=== PATIENT | female | born 1955 | race Caucasian/White ===

== ENCOUNTER 2018-01-20 15:16 | Inpatient (IN) ==
--- NOTE | 2018-01-20 17:56 | Internal Med History&Physical ---
Date of Encounter: 01/20/18 Time of Encounter: 17:54 Internal Medicine - H&P: HPI Chief complaint: transfer Admitted From: Intrahospital Transfer Plans for Post Hospital Care: Home History of present illness: Ms. Mcfarland is a 62 year old female Patient transfer from [facility] due to femur fracture. Patient has history of hypertension, morbid obesity, smoking history and DJD patient was common down stairs and that she slipped and fell landing on her left side with presentation to the emergency room with left hip pain x-ray shows left hip femur fracture patient was transferred for surgical intervention. No numbness the leg is warm denies any chest pain no shortness of breath. Patient had a recent stress test done just 2 days ago showed EF 70% with some abnormality. Past Med Surg Social Fam HX - Past Medical History Medical history: arthritis, GERD, hypertension Additional medical history: IBS Psychiatric history: anxiety - Past Surgical History Surgical History: cholecystectomy, other Additional surgical history: breast reduction 1980s, tonsillectomy - Social History Smoking Status: Current every day smoker Smokeless Tobacco Status: No Alcohol use: rarely Drug use: none - Family History Father Living Status: Hx Family Cardiac Disorders: Yes ([place]) Hx Family Respiratory Disorders: Yes (COPD) Mother Living Status: Still Living Hx Family Cardiac Disorders: Yes (hypertension) Internal Medicine - H&P: Meds Butalbital/Aspirin/Caffeine [[id number]-Sailycfh Cap] 1 each PO QID [History] Furosemide [Lasix] 40 mg PO DAILY 08/18/15 [History] Magnesium Oxide [Magnesium] 400 mg PO DAILY 08/18/15 [History] Pantoprazole Sodium [Protonix] 40 mg PO DAILY 08/18/15 [History] Pnv with Ca,No.72/Iron,Carb/FA [ Plus Iron Tablet] 1 each PO DAILY 08/17 [History] Potassium Chloride 10 meq PO BIDWM 08/18/15 [History] Promethazine HCl 2.5 mg PO QID 08/18/15 [History] Propranolol HCl 80 mg PO DAILY 08/18/15 [History] Sodium Chloride [Sodium Chloride Tab] 1 gm PO DAILY 08/18/15 [History] Spironolactone [Aldactone] 50 mg PO DAILY 08/18/15 [History] Tizanidine HCl 4 mg PO Q8H 08/18/15 [History] Trazodone HCl 150 mg PO HS 08/18/15 [History] clonazePAM [Klonopin] 2 mg PO BID PRN 08/18/15 [History] Buspirone HCl [Buspar] 10 mg PO DAILY 01/26/17 [History] Diphenoxylate/Atropine [Lomotil 2.5 mg/0.025 mg] 1 each PO DAILY 01/26/17 [ History] 3 Allergy/AdvReac Type Severity Reaction Status Date / Time acetaminophen [From Vicodin] AdvReac Hives Verified 08/18/15 09:22 clindamycin AdvReac Hives Verified 01/26/17 12:27 hydrocodone [From Vicodin] AdvReac Hives Verified 08/18/15 09:22 Iodinated Contrast- Oral and AdvReac Hives Verified 08/18/15 09:22 IV Dye prednisone AdvReac Hives Verified 08/18/15 09:22 All Systems PM: A 10-system review of systems was performed and is negative for pertinent findings except as documented above in the HPI. - Head Head exam: Present: atraumatic, normocephalic - Neck Neck exam general surgery: Present: supple, trachea midline. Absent: lymphadenopathy - Respiratory Respiratory exam: Present: CTAB. Absent: accessory muscle use, rales, rhonchi, wheezes - Cardiovascular Cardiovascular exam: Present: RRR, +S1, +S2. Absent: diastolic murmur, gallop, rubs, systolic murmur - GI/Abdominal GI/Abdominal exam: Present: normal bowel sounds, soft, no peritoneal signs. Absent: distended, tenderness - Extremities Exam Extremities exam: Present: tenderness - Assessment and plan (1) Left displaced femoral neck fracture Current Visit: Yes Status: Acute Assessment and plan: Left femoral neck fracture due to accidental fall Keep patient nothing by mouth orthopedic surgery has been contacted (2) HTN (hypertension) Current Visit: Yes Status: Chronic Assessment and plan: Chronic and well controlled Qualifiers: Hypertension type: essential hypertension Qualified Code(s): I10 - Essential (primary) hypertension (3) Morbid (severe) obesity due to excess calories Current Visit: Yes Status: Chronic Assessment and plan: Chronic (4) GERD (gastroesophageal reflux disease) Current Visit: Yes Status: Chronic Qualifiers: Esophagitis presence: without esophagitis Qualified Code(s): K21.9 - Gastro -esophageal reflux disease without esophagitis - Time Spent With Patient Total time spent is greater than 50% in coordination of care (as documented) at patient's floor/unit and/or counseling patient:
[2018-01-20] MEDS ORDERED: Naloxone 0.4 MG/ML INJ IVP PRN (18:00)
[2018-01-20] MEDS ORDERED: Acetaminophen 325 MG TABLET PO PRN (18:00)
[2018-01-20] MEDS ORDERED: *HR* HYDROcodone/Acet 10/325 mg TABLET PO PRN (18:06)
[2018-01-20] MEDS ORDERED: clonazePAM 1 MG TABLET PO PRN (18:49)
[2018-01-20] MEDS: 0.9 % Sodium Chloride 1,000 ML IVC SCH (18:55)
[2018-01-20] MEDS: clonazePAM 1 MG TABLET PO PRN (20:37)
[2018-01-20] MEDS: OXYCODONE Oral CONC 10 MG/0.5 ML ORAL.SYG SL PRN (20:37)
[2018-01-20 20:49] LABS: Basophils # 0.1 K/mcL (0.0-0.2); Basophils % 0.8 %; Eosinophils # 0.3 K/mcL (0.0-0.6); Eosinophils % 2.6 %; Hemoglobin 12.5 g/dL (11.5-15.4); Immature Granulocytes % 0.2 % (0-4); Lymphocytes # 3.7 K/mcL (0.6-4.6); Lymphocytes % 36.9 %; Mean Corpuscular HGB Conc 32.1 g/dL (31.6-35.5); Mean Corpuscular Hemoglobin 29.4 pg (28.0-33.3); Mean Corpuscular Volume 91.8 fL (83.0-100.0); Mean Platelet Volume 11.6 fL (9.4-12.4); Monocytes # 1.1 K/mcL (0.0-1.3); Neutrophils # 4.8 K/mcL (1.6-8.9); Platelet Count 187 K/mcL (140-400); Red Blood Count 4.25 M/mcL (3.82-4.97); Segmented Neutrophils % 48.5 %
[2018-01-20 21:10] LABS: Alanine Aminotransferase 14 Units/L (7-52); Albumin 3.9 g/dL (3.5-5.7); Alkaline Phosphatase 80 Units/L (34-104); Aspartate Amino Transferase 21 Units/L (13-39); BUN/Creatinine Ratio 12 (6-26); Bilirubin,Total 0.4 mg/dL (0.3-1.0); Blood Urea Nitrogen 12 mg/dL (8-23); Calcium 8.9 mg/dL (8.6-10.3); Carbon Dioxide 23 mEq/L (23-29); Chloride 108 mEq/L (98-107); Glucose 95 mg/dL (70-105); Osmolality,Calculated 286 (280-300); Potassium 3.9 mEq/L (3.5-5.1); Sodium 138 mEq/L (136-145); Total Protein 5.9 g/dL (6.4-8.9); eGFR For Non-African Americans 58 (> 60)
[2018-01-20] MEDS: Ibuprofen 800 MG TABLET PO PRN (22:14)
[2018-01-20] MEDS: Budesonide/Formoterol 160/4.5 1 PUFF INH IH SCH (23:40)
[2018-01-21 01:41] LABS: Prothrombin Time 11.2 Seconds (9.4-12.1)
[2018-01-21 01:48] LABS: Basophils # 0.1 K/mcL (0.0-0.2); Basophils % 0.9 %; Eosinophils # 0.3 K/mcL (0.0-0.6); Eosinophils % 2.6 %; Hematocrit 36.3 % (35.3-44.9); Hemoglobin 11.9 g/dL (11.5-15.4); Immature Granulocytes % 0.2 % (0-4); Lymphocytes # 3.5 K/mcL (0.6-4.6); Lymphocytes % 36.6 %; Mean Corpuscular HGB Conc 32.8 g/dL (31.6-35.5); Mean Corpuscular Hemoglobin 30.2 pg (28.0-33.3); Mean Corpuscular Volume 92.1 fL (83.0-100.0); Mean Platelet Volume 11.8 fL (9.4-12.4); Monocytes # 1.1 K/mcL (0.0-1.3); Monocytes % 11.5 %; Neutrophils # 4.6 K/mcL (1.6-8.9); Platelet Count 197 K/mcL (140-400); Red Blood Count 3.94 M/mcL (3.82-4.97); Red Cell Distribution Width 14.2 % (11.5-14.5); Segmented Neutrophils % 48.2 %
[2018-01-21 01:55] LABS: Alanine Aminotransferase 13 Units/L (7-52); Albumin 3.7 g/dL (3.5-5.7); Albumin/Globulin Ratio 2.1 (1.1-2.2); Alkaline Phosphatase 75 Units/L (34-104); Aspartate Amino Transferase 19 Units/L (13-39); BUN/Creatinine Ratio 11 (6-26); Bilirubin,Total 0.3 mg/dL (0.3-1.0); Blood Urea Nitrogen 11 mg/dL (8-23); Calcium 8.5 mg/dL (8.6-10.3); Carbon Dioxide 24 mEq/L (23-29); Chloride 109 mEq/L (98-107); Chol/HDL Ratio 7.2 (0-4.9); Cholesterol 165 mg/dL (< 200); Globulin 1.8 g/dL (2.4-3.5); Glucose 101 mg/dL (70-105); HDL Cholesterol 23 mg/dL (40-59); Magnesium 1.8 mg/dL (1.6-2.6); Osmolality,Calculated 286 (280-300); Potassium 4.1 mEq/L (3.5-5.1); Sodium 138 mEq/L (136-145); Total Protein 5.5 g/dL (6.4-8.9); Triglycerides 222 mg/dL (< 150); eGFR For Non-African Americans 58 (> 60)
[2018-01-21 01:56] LABS: LDL Cholesterol,Calculated 98 mg/dL (0-99)
[2018-01-21] MEDS: traMADol 50 MG TABLET PO PRN ×2 (01:56→08:47)
[2018-01-21] MEDS: Patient Taking Own Medication 1 EACH PO SCH ×4 (03:18→16:36)
[2018-01-21] MEDS: OXYCODONE Oral CONC 10 MG/0.5 ML ORAL.SYG SL PRN ×3 (06:18→20:04)
[2018-01-21] MEDS: *HR* Enoxaparin 40 MG/0.4 ML SYRINGE SQ SCH (06:21)
[2018-01-21] MEDS: Budesonide/Formoterol 160/4.5 1 PUFF INH IH SCH ×2 (08:03→20:26)
[2018-01-21] MEDS: clonazePAM 1 MG TABLET PO PRN ×2 (09:00→18:39)
[2018-01-21] MEDS: Magnesium Oxide 400 MG TABLET PO SCH (09:01)
[2018-01-21] MEDS ORDERED: *HR* FentaNYL (PF) 100 MCG/2 ML VIAL IVP STA (09:08)
--- NOTE | 2018-01-21 09:18 | Orthopedic Consult Note ---
Date of Encounter: 01/21/18 Time of Encounter: 09:18 Assessment and Plan (1) Left displaced femoral neck fracture Current Visit: Yes Status: Acute Case and images reviewed with Dr. Quinn. He states recommendation for Left hip pinning for tomorrow, 01/22. Reviewed above with patient who verbalized understanding. Informed consent obtained following review of risks/benefits of surgical intervention. Minimize motion to left hip - comfort measures re: positioning recommended. Tizanidine (home med) and Lidoderm patch added for additional pain relief. Hospitalist managing pain medication at this time. NPO at midnight tonight. Patient understanding that surgery is dependent on risk stratification/ clearance by both the hospitalist and anesthesia teams. Thank you for this consultation. (2) Left hip pain Current Visit: Yes Status: Acute (3) Trouble walking Current Visit: Yes Status: Acute History of Present Illness Chief complaint: left hip pain HPI: Ms. Mcfarland is a 62 year old female presenting to [facility] from [facility] for left hip pain. Imaging from [facility] reveals minimally displaced femoral neck fracture. Patient recounts that she was at her mother's home yesterday and thought she was on the last step down however was not leading to mechanical fall directly onto the left hip. She states she tried to rest and get in comfortable position after falling however discovered intense pain with ambulation and hip ROM. She states she eventually called EMS after 2 people at home were not able to help her move around and was transported to [facility] for evaluation and treatment. She denies history of osteoporosis/penia however admits to history of fracture to right foot. She presently denies chest pain, shortness of breath, paresthesias to the b/l LE , history of bowel or bladder dysfunction, or calf pain. Per patient/record history of hypertension, CKD following with [facility] (Dr. Clarke), obesity, smoking, lung nodule (Dr. Zaldivar), and DJD. Patient notes she recently had a stress test just this past Sunday, 01/18 per patient ordered by Dr. Zaldivar for clearance for bronchoscopy w/ biopsy lung nodule. On exam patient is resting supine in bed. Patient admits to anxiety as she states she is in a great deal of pain. Alert and oriented x 3. No leg length discrepancy noted on examination. No gross deformity noted. Scarring noted to bilateral shins - patient states old superficial injury. Tenderness to palpation about the left hip. No calf tenderness to palpation bilaterally. RLE motion/strength exam wnl. Left knee ROM limited secondary to hip pain with motion as expected. Left ankle ROM and strength wnl. Neurovascularly intact to b /l lower distal extremities. Of note, patient requesting surgery to be performed by Dr. Quinn. Assessment: Minimally displaced LEFT femoral neck fracture Plan: Case and images reviewed with Dr. Quinn. He states recommendation for Left hip pinning for tomorrow, 01/22. Reviewed above with patient who verbalized understanding. Informed consent obtained following review of risks/benefits of surgical intervention. Minimize motion to left hip - comfort measures re: positioning recommended. Tizanidine (home med) and Lidoderm patch added for additional pain relief. Hospitalist managing pain medication at this time. NPO at midnight tonight. Patient understanding that surgery is dependent on risk stratification/ clearance by both the hospitalist and anesthesia teams. Thank you for this consultation. Past Med Surg Social Fam HX - Past Medical History Medical history: arthritis, GERD, hypertension Additional medical history: IBS Psychiatric history: anxiety - Past Surgical History Surgical History: cholecystectomy, other Additional surgical history: breast reduction 1980s, tonsillectomy - Social History Smoking Status: Current every day smoker Smokeless Tobacco Status: No Alcohol use: rarely Drug use: none - Family History Father Living Status: Hx Family Cardiac Disorders: Yes ([place]) Hx Family Respiratory Disorders: Yes (COPD) Mother Living Status: Still Living Hx Family Cardiac Disorders: Yes (hypertension) Medications and Allergies Butalbital/Aspirin/Caffeine [Kplhlvvmqu-SMQ-Hoaalepb Cap] 1 each PO QID [History] Furosemide [Lasix] 40 mg PO DAILY 08/18/15 [History] Magnesium Oxide [Magnesium] 400 mg PO DAILY 08/18/15 [History] Pantoprazole Sodium [Protonix] 40 mg PO DAILY 08/18/15 [History] Pnv with Ca,No.72/Iron,Carb/FA [ Plus Iron Tablet] 1 each PO DAILY 08/17 [History] Potassium Chloride 10 meq PO BIDWM 08/18/15 [History] Promethazine HCl 25 mg PO QID PRN 08/18/15 [History] Propranolol HCl 80 mg PO DAILY 08/18/15 [History] Sodium Chloride [Sodium Chloride Tab] 1 gm PO DAILY 08/18/15 [History] Spironolactone [Aldactone] 25 mg PO DAILY 08/18/15 [History] Tizanidine HCl 4 mg PO Q8H PRN 08/18/15 [History] Trazodone HCl 150 mg PO HS 08/18/15 [History] clonazePAM [Klonopin] 2 mg PO BID PRN 08/18/15 [History] Diphenoxylate/Atropine [Lomotil 2.5 mg/0.025 mg] 1 each PO BID PRN 01/26/17 [ History] Budesonide/Formoterol 160/4.5 [Symbicort 160/4.5] 160 mcg IH BID 01/20/18 [ History] Ibuprofen 800 mg PO Q8HR PRN 01/20/18 [History] Meclizine HCl [Verticalm] 25 mg PO QID PRN 01/20/18 [History] Montelukast [Singulair] 10 mg PO HS 01/20/18 [History] Proair Hfa 8.5 g IH Q4HR PRN 01/20/18 [History] Prochlorperazine Maleate [Compazine] 10 mg PO BID 01/20/18 [History] 3 Allergy/AdvReac Type Severity Reaction Status Date / Time acetaminophen Allergy Nausea Verified 01/21/18 10:03 [From Tylenol-Codeine #3] codeine Allergy Nausea Verified 01/21/18 10:03 [From Tylenol-Codeine #3] clindamycin AdvReac Hives Verified 01/26/17 12:27 hydrocodone [From Vicodin] AdvReac Hives Verified 08/18/15 09:22 Iodinated Contrast- Oral and AdvReac Hives Verified 08/18/15 09:22 IV Dye prednisone AdvReac Hives Verified 08/18/15 09:22 All Systems Reviewed: As per HPI Physical Exam - Constitutional Vitals: Temp Pulse Resp BP Pulse Ox 98.3 F 66 16 124/66 92 01/21/18 07:29 01/21/18 07:29 01/21/18 07:29 01/21/18 07:29 01/21/18 07:29 Results - Labs Result Diagrams: 01/21/18 01:14 01/21/18 01:14 Labs: Abnormal lab results Chloride 109 mEq/L (98-107) H 01/21/18 01:14 Est GFR (Non-Af Amer) 58 (> 60) L 01/21/18 01:14 Calcium 8.5 mg/dL (8.6-10.3) L 01/21/18 01:14 Serum Total Protein 5.5 g/dL (6.4-8.9) L 01/21/18 01:14 Globulin 1.8 g/dL (2.4-3.5) L 01/21/18 01:14 Triglycerides 222 mg/dL (< 150) H 01/21/18 01:14 VLDL Cholesterol, Calc 44 mg/dL (< 31) H 01/21/18 01:14 HDL Cholesterol 23 mg/dL (40-59) L 01/21/18 01:14 Cholesterol/HDL Ratio 7.2 (0-4.9) H 01/21/18 01:14 H & H 01/20/18 01/21/18 Range/Units 20:23 01:14 Hgb 12.5 11.9 (11.5-15.4) g/dL Hct 39.0 36.3 (35.3-44.9) % All other labs normal.
[2018-01-21] MEDS: tiZANidine 4 MG TABLET PO PRN (10:51)
[2018-01-21] MEDS: Ibuprofen 800 MG TABLET PO PRN (13:38)
--- NOTE | 2018-01-21 14:11 | Internal Med Progress Note ---
Hospitalist Progress Note - Encounter Date of Encounter: 01/21/18 Time of Encounter: 14:08 - Subjective Interval History: Patient had no acute events overnight. She states that she still has significant pain in left hip, not relieved by oxycodone. She also has a mild headache, which she attributes to not eating. She denies fever, chills, chest pain, SOB, nausea, vomiting, or abdominal pain. She has no other complaints at this time. - Exam Vitals: Temp Pulse Resp BP Pulse Ox 98.0 F 65 16 118/78 93 01/21/18 11:31 01/21/18 11:31 01/21/18 11:31 01/21/18 11:31 01/21/18 11:31 Exam: Gen - Awake, alert, no acute distress HEENT - NCAT, PERRLA, EOMI, hearing grossly intact, oropharynx benign CV - RRR, normal S1 and S2, no M/R/G, no BLE edema Resp - Normal WOB, CTAB, no W/R/R GI - Soft, NT/ND, normal bowel sounds, no masses, no HSP Skin - Warm, dry, no rashes/lesions/ulcers Ext - Mild TTP over left hip, lidocaine patch over left hip Psych - Normal mood and affect, no depression or anxiety - Assessment and Plan (1) Left displaced femoral neck fracture Current Visit: Yes Status: Acute Assessment and Plan: Orthopedics consulted; appreciate input. Plan for surgery tomorrow. NPO after midnight. Will add fentanyl 25 mg IV Q6H PRN for breakthrough pain. (2) GERD (gastroesophageal reflux disease) Current Visit: Yes Status: Chronic Assessment and Plan: Continue home PPI. (3) HTN (hypertension) Current Visit: Yes Status: Chronic Assessment and Plan: Normotensive. Continue home medications after surgery. (4) Morbid (severe) obesity due to excess calories Current Visit: Yes Status: Chronic Assessment and Plan: Counselled on lifestyle modifications. (5) DVT prophylaxis Current Visit: Yes Status: Acute Assessment and Plan: Continue lovenox and SCDs - Time Spent with Patient Total time spent is greater than 50% in coordination of care (as documented) at patient's floor/unit and/or counseling patient: less than 15 minutes Plan of Care Discussed with: patient (Nurse) Internal Medicine: Result - Labs CBC & Chem 7: 01/21/18 01:14 01/21/18 01:14 Labs: Short CBC 01/20/18 01/21/18 Range/Units 20:23 01:14 WBC 9.9 9.6 (4.3-11.1) K/mcL Hgb 12.5 11.9 (11.5-15.4) g/dL Hct 39.0 36.3 (35.3-44.9) % Plt Count 187 197 (140-400) K/mcL Neutrophils # 4.8 4.6 (1.6-8.9) K/mcL BMP 01/20/18 01/21/18 20:23 01:14 Sodium 138 138 Potassium 3.9 4.1 Chloride 108 H 109 H Carbon Dioxide 23 24 BUN 12 11 Creatinine 0.98 0.98 Glucose 95 101 Calcium 8.9 8.5 L Liver Function 01/20/18 01/21/18 Range/Units 20:23 01:14 Total Bilirubin 0.4 0.3 (0.3-1.0) mg/dL AST 21 19 (13-39) Units/L ALT 14 13 (7-52) Units/L Alkaline Phosphatase 80 75 (34-104) Units/L Albumin 3.9 3.7 (3.5-5.7) g/dL - ABG Interpretation ABG results: PT/INR, D-dimer PT 11.2 Seconds (9.4-12.1) 01/21/18 01:14 Consult Discharge Plan - Plan Referrals: Nelson Tolentino MD [Non-Partnered Physician] - (2) GERD (gastroesophageal reflux disease) Qualifiers: Esophagitis presence: without esophagitis Qualified Code(s): K21.9 - Gastro- esophageal reflux disease without esophagitis (3) HTN (hypertension) Qualifiers: Hypertension type: essential hypertension Qualified Code(s): I10 - Essential (primary) hypertension
[2018-01-21] MEDS: 0.9 % Sodium Chloride 1,000 ML IVC SCH (15:13)
[2018-01-21] MEDS: *HR* FentaNYL (PF) 100 MCG/2 ML VIAL IVP PRN ×2 (15:23→22:15)
[2018-01-21] MEDS ORDERED: Diphenoxylate/Atropine 1 TAB TABLET PO PRN (15:32)
--- NOTE | 2018-01-21 16:54 | Cardiology Consult Note ---
<Arvin Ronquillo - Last Filed: 01/21/18 16:41> Date of Encounter: 01/21/18 Time of Encounter: 16:41 Assessment and Plan (1) Pre-operative cardiovascular examination Current Visit: Yes Status: Acute Cardiology asked to evaluate patient prior to hip surgery for acute hip fracture. She denies cardiac symptoms and was able to do 4 mets activity prior to her fall this morning. Stress test reviewed. Medium sized, moderately severe intensity partially fixed perfusion defect involving the basal-mid anterolateral segments with worsening in the distal stress segments. While findings may represent artifact, reversible ischemia cannot be excluded. Pharmacologic stress ECG is non diagnostic for ischemia due to baseline non-specific ST and T changes. Gated EF > 70%. Perfusion imaging was equivocal. Findings likely artifact. If there is an area of concern it can be managed medically. No further testing warranted in the setting of acute hip fracture needing repair. Anymore procedures from cardiology would delay her surgery and cause potential demise. Discussion w patient/family: The assessment and plan as outlined above was discussed with the patient and/or family members who expressed understanding and agreement. All questions were answered. Thank you for involving us in the care of your patient. Please call with any questions. History of Present Illness Consult date: 01/21/18 Requesting physician: Aaron Tripathi Consult reason: Pre-operative surgery evaluation Chief complaint: Fall at home History of present illness: Ms. Mcfarland is a 62 year old female with past medical history of HTN, tobacco use, lung nodule, and obesity, and dextrocardia. She presents from home after falling down her stairs and fracturing her hip. She is recommended to undergo hip repair. She was noted to have completed a stress test last sunday that was found to be abnormal. Stress test ordered for evaluation prior to broncoscopy for lung nodule. Cardiology consulted for pre-opertive risk stratification. She states that prior to her fall she was able to walk a city block or climb a flight of stairs without chest pain or SOB. Denies orthopnea, edema, or weight gain. Denies palpitations. Denies prior cardiac history. Underwent LHC 10 years ago that was normal per patient. Past Med Surg Social Fam HX - Past Medical History Medical history: arthritis, GERD, hypertension Additional medical history: IBS Psychiatric history: anxiety - Past Surgical History Surgical History: cholecystectomy, other Additional surgical history: breast reduction 1980s, tonsillectomy - Social History Smoking Status: Current every day smoker Smokeless Tobacco Status: No Alcohol use: rarely Drug use: none - Family History Father Living Status: Hx Family Cardiac Disorders: Yes ([place]) Hx Family Respiratory Disorders: Yes (COPD) Mother Living Status: Still Living Hx Family Cardiac Disorders: Yes (hypertension) Medications and Allergies Butalbital/Aspirin/Caffeine [Sbgnobslrw-ACP-Hfewrrev Cap] 1 each PO QID [History] Furosemide [Lasix] 40 mg PO DAILY 08/18/15 [History] Magnesium Oxide [Magnesium] 400 mg PO DAILY 08/18/15 [History] Pantoprazole Sodium [Protonix] 40 mg PO DAILY 08/18/15 [History] Pnv with Ca,No.72/Iron,Carb/FA [ Plus Iron Tablet] 1 each PO DAILY 08/17 [History] Potassium Chloride 10 meq PO BIDWM 08/18/15 [History] Promethazine HCl 25 mg PO QID PRN 08/18/15 [History] Propranolol HCl 80 mg PO DAILY 08/18/15 [History] Sodium Chloride [Sodium Chloride Tab] 1 gm PO DAILY 08/18/15 [History] Spironolactone [Aldactone] 25 mg PO DAILY 08/18/15 [History] Tizanidine HCl 4 mg PO Q8H PRN 08/18/15 [History] Trazodone HCl 150 mg PO HS 08/18/15 [History] clonazePAM [Klonopin] 2 mg PO BID PRN 08/18/15 [History] Diphenoxylate/Atropine [Lomotil 2.5 mg/0.025 mg] 1 each PO BID PRN 01/26/17 [ History] Budesonide/Formoterol 160/4.5 [Symbicort 160/4.5] 160 mcg IH BID 01/20/18 [ History] Ibuprofen 800 mg PO Q8HR PRN 01/20/18 [History] Meclizine HCl [Verticalm] 25 mg PO QID PRN 01/20/18 [History] Montelukast [Singulair] 10 mg PO HS 01/20/18 [History] Proair Hfa 8.5 g IH Q4HR PRN 01/20/18 [History] Prochlorperazine Maleate [Compazine] 10 mg PO BID 01/20/18 [History] 3 Allergy/AdvReac Type Severity Reaction Status Date / Time acetaminophen Allergy Nausea Verified 01/21/18 10:03 [From Tylenol-Codeine #3] codeine Allergy Nausea Verified 01/21/18 10:03 [From Tylenol-Codeine #3] clindamycin AdvReac Hives Verified 01/26/17 12:27 hydrocodone [From Vicodin] AdvReac Hives Verified 08/18/15 09:22 Iodinated Contrast- Oral and AdvReac Hives Verified 08/18/15 09:22 IV Dye prednisone AdvReac Hives Verified 08/18/15 09:22 All Systems Review: The remainder of the systems were reviewed and are negative Physical Examination Vital Signs, Last 4 Hours Temp Pulse Resp BP Pulse Ox 01/21/18 14:45 98.3 F 63 16 104/70 93 General: Conversant, No Apparent Distress HEENT: Atraumatic, Normocephaly, Mucus Membranes Moist Neck: No JVD, Normal carotid pulses Cardiac: Reg Rate and Rhythm, Normal S1 and S2, No Murmur Lungs: Normal Breath Sounds, No Wheeze, Rales, Rhonchi Neuro: Alert and responsive, No focal deficits noted Abdomen: Soft, Non-Tender Skin: No rashes noted on visualized skin Musculoskeletal: No Chest Wall Tenderness Extremities: No Clubbing, No Cyanosis, No Edema, Normal Pulses Results 01/21/18 01:14 01/21/18 01:14 Lab Results 01/20/18 01/20/18 01/21/18 20:23 20:23 01:14 WBC 9.9 9.6 Hgb 12.5 11.9 Hct 39.0 36.3 Plt Count 187 197 INR Sodium 138 Potassium 3.9 Chloride 108 H Carbon Dioxide 23 BUN 12 Creatinine 0.98 Glucose 95 Calcium 8.9 Magnesium Total Bilirubin 0.4 AST 21 ALT 14 Alkaline Phosphatase 80 01/21/18 01/21/18 01:14 01:14 WBC Hgb Hct Plt Count INR 1.0 Sodium 138 Potassium 4.1 Chloride 109 H Carbon Dioxide 24 BUN 11 Creatinine 0.98 Glucose 101 Calcium 8.5 L Magnesium 1.8 Total Bilirubin 0.3 AST 19 ALT 13 Alkaline Phosphatase 75 - Imaging and Cardiology Stress Test: report reviewed - EKG Interpretation EKG results cardiology: personally reviewed (SR with Non-specific T wave changes.) Consult Discharge Plan - Plan Referrals: Nelson Tolentino MD [Primary Care Provider] - <Farida Watts - Last Filed: 01/22/18 12:23> Date of Encounter: 01/22/18 - Attending Attestation I examined this patient and my medical decision-making was reviewed with the [employer]. I agree with the documented findings, disposition and treatment plan as described. We've been asked to evaluate Ms. Mcfarland preoperatively prior to orthopedic surgery for an acute hip fracture. Patient apparently sustained a mechanical fall prompting admission. Just prior to this she had an outpatient stress test prior ordered by PCP prior to bronchoscopy prompted by abnormal ECG. At the bedside, the patient appears comfortable. She denies prior history of chest pain. She admits to fair functional capacity prior to her accidental fall. She has no prior history of CAD. Risk factors include postmenopausal status, HTN and active smoking. Vital signs reviewed - hemodynamically stable. Labs reviewed. Stress test images personally reviewed. Impression: Stress testing images demonstrate equivocal results. The patient denies prior chest pain and admits to fair functional capacity. While she does have risk factors for CAD, she describes no ischemic symptoms and has normal LV systolic function. At this time, we recommend proceeding with necessary surgery despite cardiac risk factors understanding she is at at least intermediate risk for perioperative cardiac events. Any invasive cardiac testing would likely delay or prohibit her necessary orthopedic surgery that if not done would impact her morbidity and mortality. This was discussed with the patient. She expressed understanding of her cardiac risk. When able, would start low dose aspirin and have patient follow up in the outpatient cardiology setting. Assessment and Plan Discussion w patient/family: The assessment and plan as outlined above was discussed with the patient and/or family members who expressed understanding and agreement. All questions were answered. Thank you for involving us in the care of your patient. Please call with any questions. History of Present Illness History of present illness: Ms. Mcfarland is a 62 year old female All Systems Review: The remainder of the systems were reviewed and are negative Results 01/22/18 00:53 01/22/18 00:53 Lab Results 01/22/18 01/22/18 00:53 00:53 WBC 9.9 Hgb 11.9 Hct 36.5 Plt Count 199 Sodium 134 L Potassium 4.1 Chloride 105 Carbon Dioxide 24 BUN 10 Creatinine 0.89 Glucose 99 Calcium 8.5 L
--- NOTE | 2018-01-21 20:57 | Anesthesia Evaluation PreOp ---
<Merna Do Dee - Last Filed: 01/21/18 20:54> Date of Encounter: 01/21/18 Time of Encounter: 20:55 - Past History Planned Operation: L hip Pinning vs Hemiarthroplasty Cardiac History: HTN, Other (Per cardiology note: Medium sized, moderately severe intensity partially fixed perfusion defect involving the basal-mid anterolateral segments with worsening in the distal stress segments. While findings may represent artifact, reversible ischemia cannot be excluded. Pharmacologic stress ECG is non diagnostic for ischemia due to baseline non- specific ST and T changes. Gated EF > 70%. Perfusion imaging was equivocal. Findings likely artifact. If there is an area of concern it can be managed medically. No further testing warranted in the setting of acute hip fracture needing repair. Anymore procedures from cardiology would delay her surgery and cause potential demise.) Pulmonary History: Smoker, Other (lung nodule) QUICK MIXER OPERATOR History: Other (anxiety) Other Medical History: GERD Anesthesia History: No Prior Anesthetic Complications, Past Anesthesia (breast reduction, tonisllectomy) Alcohol Use: rarely Drug use: none Medications and Allergies Butalbital/Aspirin/Caffeine [Mapreqrhvt-QTW-Jaflwqyt Cap] 1 each PO QID [History] Furosemide [Lasix] 40 mg PO DAILY 08/18/15 [History] Magnesium Oxide [Magnesium] 400 mg PO DAILY 08/18/15 [History] Pantoprazole Sodium [Protonix] 40 mg PO DAILY 08/18/15 [History] Pnv with Ca,No.72/Iron,Carb/FA [ Plus Iron Tablet] 1 each PO DAILY 08/17 [History] Potassium Chloride 10 meq PO BIDWM 08/18/15 [History] Promethazine HCl 25 mg PO QID PRN 08/18/15 [History] Propranolol HCl 80 mg PO DAILY 08/18/15 [History] Sodium Chloride [Sodium Chloride Tab] 1 gm PO DAILY 08/18/15 [History] Spironolactone [Aldactone] 25 mg PO DAILY 08/18/15 [History] Tizanidine HCl 4 mg PO Q8H PRN 08/18/15 [History] Trazodone HCl 150 mg PO HS 08/18/15 [History] clonazePAM [Klonopin] 2 mg PO BID PRN 08/18/15 [History] Diphenoxylate/Atropine [Lomotil 2.5 mg/0.025 mg] 1 each PO BID PRN 01/26/17 [ History] Budesonide/Formoterol 160/4.5 [Symbicort 160/4.5] 160 mcg IH BID 01/20/18 [ History] Ibuprofen 800 mg PO Q8HR PRN 01/20/18 [History] Meclizine HCl [Verticalm] 25 mg PO QID PRN 01/20/18 [History] Montelukast [Singulair] 10 mg PO HS 01/20/18 [History] Proair Hfa 8.5 g IH Q4HR PRN 01/20/18 [History] Prochlorperazine Maleate [Compazine] 10 mg PO BID 01/20/18 [History] 3 Allergy/AdvReac Type Severity Reaction Status Date / Time acetaminophen Allergy Nausea Verified 01/21/18 10:03 [From Tylenol-Codeine #3] codeine Allergy Nausea Verified 01/21/18 10:03 [From Tylenol-Codeine #3] clindamycin AdvReac Hives Verified 01/26/17 12:27 hydrocodone [From Vicodin] AdvReac Hives Verified 08/18/15 09:22 Iodinated Contrast- Oral and AdvReac Hives Verified 08/18/15 09:22 IV Dye prednisone AdvReac Hives Verified 08/18/15 09:22 - Meds/Allergy Pre-op Review Medications Reviewed: Yes Allergies Reviewed: Yes Beta Blockers on Current Med List: No Anesthesia Results - Labs 01/21/18 01:14 01/21/18 01:14 - Imaging EKG: other (NSR per cardiology note) <Brandon Barbosa - Last Filed: 01/22/18 11:56> Date of Encounter: 01/22/18 Time of Encounter: 11:49 - Past History Planned Operation: L hip Pinning Cardiac History: Other Anesthesia History: Past Anesthesia : No - Meds/Allergy Pre-op Review Medications Reviewed: Yes Allergies Reviewed: Yes Beta Blockers on Current Med List: Yes If Beta Blockers taken, Date/Time (Last Dose taken): 08:36 01/22/2018 Anesthesia Results - Labs 01/22/18 00:53 01/22/18 00:53 - Imaging EKG: report reviewed (SINUS RHYTHM ST DEVIATION AND MODERATE T-WAVE ABNORMALITY , CONSIDER ANTEROLATERAL ISCHEMIA), other Anesthesia Exam Vital Signs/O2 Sat, Most Current Temp Pulse Resp BP Pulse Ox 98.4 F 67 17 123/66 96 01/22/18 07:22 01/22/18 07:22 01/22/18 07:58 01/22/18 07:22 01/22/18 07:58 NPO (# of Hours): > 8 hrs Pain Scale: 0 Pain Scale Used: Numeric (1 - 10) - HEENT Pupil (Motor): Pupils equal, EOMI Mallampati: III Teeth: Normal Oral Opening: Greater than 3 - QUICK MIXER OPERATOR LOC: Oriented QUICK MIXER OPERATOR Motor: Normal RUE, Normal LUE, Normal RLE, Normal LLE, Normal Face QUICK MIXER OPERATOR Sensory: Normal: RUE, LUE, RLE, LLE, Face - Cardiac Rhythm: Regular Murmur: None JVD: No Carotid Bruit: No - Pulmonary Breath Sounds: bilateral Clear Respiratory Effort: Symmetrical Anesthesia Assess/Plan ASA Score: 3 Modified [place] Scale for Level of Consciousness: Cooperative, oriented, and tranquil Anesthetic Plan: General Autologous Blood: Yes Monitoring Plan: Standard Monitors Recovery Plan: PACU
[2018-01-22] MEDS: Ibuprofen 800 MG TABLET PO PRN (00:36)
[2018-01-22 01:43] LABS: Basophils # 0.1 K/mcL (0.0-0.2); Basophils % 0.6 %; Eosinophils # 0.3 K/mcL (0.0-0.6); Eosinophils % 2.7 %; Hematocrit 36.5 % (35.3-44.9); Hemoglobin 11.9 g/dL (11.5-15.4); Immature Granulocytes % 0.3 % (0-4); Lymphocytes # 2.9 K/mcL (0.6-4.6); Lymphocytes % 29.6 %; Mean Corpuscular HGB Conc 32.6 g/dL (31.6-35.5); Mean Corpuscular Hemoglobin 30.1 pg (28.0-33.3); Mean Corpuscular Volume 92.2 fL (83.0-100.0); Mean Platelet Volume 11.8 fL (9.4-12.4); Monocytes # 1.2 K/mcL (0.0-1.3); Monocytes % 11.6 %; Neutrophils # 5.5 K/mcL (1.6-8.9); Platelet Count 199 K/mcL (140-400); Red Blood Count 3.96 M/mcL (3.82-4.97); Red Cell Distribution Width 13.8 % (11.5-14.5); Segmented Neutrophils % 55.2 %
[2018-01-22 02:06] LABS: BUN/Creatinine Ratio 11 (6-26); Blood Urea Nitrogen 10 mg/dL (8-23); Calcium 8.5 mg/dL (8.6-10.3); Carbon Dioxide 24 mEq/L (23-29); Chloride 105 mEq/L (98-107); Glucose 99 mg/dL (70-105); Osmolality,Calculated 277 (280-300); Potassium 4.1 mEq/L (3.5-5.1); Sodium 134 mEq/L (136-145); eGFR For Non-African Americans > 60 (> 60)
[2018-01-22] MEDS: OXYCODONE Oral CONC 10 MG/0.5 ML ORAL.SYG SL PRN ×3 (02:23→20:50)
[2018-01-22] MEDS: *HR* FentaNYL (PF) 100 MCG/2 ML VIAL IVP PRN ×3 (04:34→23:07)
[2018-01-22] MEDS: Patient Taking Own Medication 1 EACH PO SCH ×2 (05:53→12:18)
[2018-01-22] MEDS: *HR* Enoxaparin 40 MG/0.4 ML SYRINGE SQ SCH (05:56)
--- NOTE | 2018-01-22 06:49 | Orthopedics Progress Note ---
Date of Encounter: 01/22/18 Time of Encounter: 06:49 Subjective Interval history: Patient seen this morning nondisplaced left hip fracture recommendation for left hip pinning. We reviewed the risks and benefits as well as recovery. All questions were answered. The patient agreed to this treatment plan and appeared to understand the plan is reviewed. Objective Vital signs: Vital Signs Temp Pulse Resp BP Pulse Ox 01/22/18 04:44 98.3 F 72 16 119/76 92 01/21/18 23:55 97.7 F 65 16 142/84 96 01/21/18 20:26 15 93 01/21/18 19:34 98.1 F 63 14 114/65 92 01/21/18 14:45 98.3 F 63 16 104/70 93 01/21/18 11:31 98.0 F 65 16 118/78 93 01/21/18 07:29 98.3 F 66 16 124/66 92 Intake and Output 01/21/18 01/21/18 01/22/18 15:59 23:59 07:59 Intake Total 1000 / 1000 50 / 50 Output Total 800 / 800 1100 / 1100 1000 / 1000 Balance 200 / 200 -1050 / -1050 -1000 / -1000 Intake: IV Fluids 1000 / 1000 0.9 % Sodium Chloride 1,000 ML 1000 / 1000 @ 75 mls/hr IVC [id number] [facility] Rx #:[id number] Oral 50 / 50 Output: Catheter 800 / 800 1100 / 1100 1000 / 1000 - Labs CBC & BMP: 01/22/18 00:53 01/22/18 00:53 Labs: Abnormal lab results Sodium 134 mEq/L (136-145) L 01/22/18 00:53 Calculated Osmolality 277 (280-300) L 01/22/18 00:53 Calcium 8.5 mg/dL (8.6-10.3) L 01/22/18 00:53 Serum Total Protein 5.5 g/dL (6.4-8.9) L 01/21/18 01:14 Globulin 1.8 g/dL (2.4-3.5) L 01/21/18 01:14 Triglycerides 222 mg/dL (< 150) H 01/21/18 01:14 VLDL Cholesterol, Calc 44 mg/dL (< 31) H 01/21/18 01:14 HDL Cholesterol 23 mg/dL (40-59) L 01/21/18 01:14 Cholesterol/HDL Ratio 7.2 (0-4.9) H 01/21/18 01:14 - VTE Documentation of Mechanical Device: Intermittent pneumatic compression device Consult Discharge Plan - Plan Referrals: Nelson Tolentino MD [Primary Care Provider] -
[2018-01-22] MEDS: clonazePAM 1 MG TABLET PO PRN (07:28)
[2018-01-22] MEDS: tiZANidine 4 MG TABLET PO PRN (07:28)
[2018-01-22] MEDS: Budesonide/Formoterol 160/4.5 1 PUFF INH IH SCH ×2 (07:57→20:06)
[2018-01-22] MEDS ORDERED: Propranolol LA (24 HR) 80 MG CAP.SA.24H PO SCH (09:00)
[2018-01-22] MEDS ORDERED: *HR* FentaNYL (PF) 100 MCG/2 ML VIAL ONE (11:47)
[2018-01-22] MEDS ORDERED: *HR* Propofol 200 MG/20 ML VIAL IVP ONE (11:48)
[2018-01-22] MEDS ORDERED: *HR* Midazolam HCl 2 MG/2 ML VIAL ONE (11:48)
[2018-01-22] MEDS ORDERED: *HR* Rocuronium Bromide 50 MG/5 ML VIAL ONE (11:49)
[2018-01-22] MEDS ORDERED: Lidocaine -MPF 2% 5 ML VIAL ONE (12:02)
[2018-01-22] MEDS ORDERED: Bupivacaine/Clonidine Syringe 1 EACH SYRINGE ONE (12:02)
[2018-01-22] MEDS: Magnesium Oxide 400 MG TABLET PO SCH (12:18)
[2018-01-22] MEDS ORDERED: EPHEDrine 50 MG/ML VIAL ONE (12:29)
[2018-01-22] MEDS ORDERED: *HR* PHENYLEPHRINE 1,000 MCG/10 ML SYRINGE IVP ONE (12:30)
--- NOTE | 2018-01-22 12:48 | Anesthesia Procedures ---
Date of Encounter: 01/22/18 Time of Encounter: Procedures: Anesthesia - Nerve Block Procedure Date: 01/22/18 Time: 12: Surgical Procedure: left hip Checklist: Correct Patient Identifier, Correct procedure, History checked Correct side: Left Blood Thinner: No Monitor Applied: BP, Pulse Oximetry Supplemental Oxygen via Nasal Cannula (L/min): 2 Sedation: Versed (mg): 2 Sedation: Fentanyl (mcg): 100 Indication: Post Op Analgesia Block Type: Other (fascia iliaca) Catheter placed: No Sterile Technique: Yes Ultrasound used: Yes Anatomy identified: Yes Visual spread of Local: Yes Neuro Stimulation: No Blood on Needle Aspiration: No Smooth Injection of Local: Yes Pain with Injection of Local: No Prep: Chlorhexadine Needle: 21 x 100 mm Stimuplex Local: 0.25% Bupivicaine w/Clonidine 20 mcg/cc, Other (5ml 2% lido ) Volume (cc): 65 Number of Attempts: 1 Complications: None/effective block Vitals: vss though out procedure, block per request of surgeon.
[2018-01-22] MEDS ORDERED: Ondansetron 4 MG/2 ML VIAL ONE (12:50)
--- NOTE | 2018-01-22 12:56 | Orthopedic Operative Note ---
Date of procedure: 01/22/18 Pre-op diagnosis: Nondisplaced left hip fracture Post-op diagnosis: same Procedure: Procedure: Left hip open pinning Estimated blood loss: 5 cc Hardware:Synthes 2 7.3 cannulated metal screws Operative procedure: The patient was brought to the operating room and placed on the operating room table. After general anesthesia was administered the well leg was place in the well leg hernandes and the operative leg was placed in the fracture leg hernandes. All pressure points were padded appropriately. The operative extremity was prepped and draped in the sterile surgical fashion patient received IV antibiotic prior to skin incision. Using fluoroscopic assistance a guidepin was placed through a small stab incision on the lateral aspect of the femur. Placed through the lateral femur across the fracture site into the femoral head addition of the guidepin was found to be acceptable in AP and lateral planes. A second guidepin was placed in an appropriate position and confirmed with fluoroscopy. Two 7.3 cannulated screws were placed over the guidepins, and their position was confirmed with fluoroscopy as well. Hardware as well as fracture site was well reduced and well positioned. Wound was irrigated and closed with a 2-0 Monocryl suture The patient was placed in a sterile dressing The patient was extubated and transferred to the recovery room in stable condition. Anesthesia: GETA Surgeon: Suraj Quinn Was there an resident assistant cna present: No Estimated blood loss (cc): 5 Condition: stable Disposition: PACU
[2018-01-22] MEDS ORDERED: *HR* Promethazine 25 MG/ML VIAL IVP PRN (13:08)
[2018-01-22] MEDS ORDERED: *HR* Morphine 2 MG/ML SYRINGE IVP PRN (13:08)
[2018-01-22] MEDS ORDERED: *HR* OxyCODONE Immed Rel 5 MG TABLET PO PRN (13:08)
[2018-01-22] MEDS ORDERED: Ringers Solution, Lactated 1,000 ML ONE (14:07)
--- NOTE | 2018-01-22 14:25 | Anesthesia Evaluation Post Op ---
Date of Encounter: 01/22/18 Time of Encounter: 14:24 - Vital Signs Vital Signs: Last Vital Signs Temp 98.0 F 01/22/18 14:17 Pulse 61 01/22/18 14:17 Resp 16 01/22/18 14:17 BP 112/58 01/22/18 14:17 Pulse Ox 99 01/22/18 14:17 - Lungs Lungs: Clear Ascult./Percussion - Airway Airway: Non-obstructed - Cardiovascular Regular Rate - Mental Status Mental Status: Alert & Oriented, Answers Appropriately - Pain Pain Scale: 0 Pain Scale used: Numeric (1 - 10) - Nausea Vomiting Nausea Vomiting: Not Present - Hydration Hydration: Tolerates oral liquids, Ice chips - Discharge PostOp Status: Transfer Patient to floor
[2018-01-22] MEDS ORDERED: Diphenoxylate/Atropine 1 TAB TABLET PO PRN (14:47)
[2018-01-22] MEDS ORDERED: Acetaminophen 325 MG TABLET PO PRN (14:47)
[2018-01-22] MEDS ORDERED: Naloxone 0.4 MG/ML INJ IVP PRN (14:47)
[2018-01-22] MEDS ORDERED: tiZANidine 4 MG TABLET PO PRN (14:47)
[2018-01-22] MEDS ORDERED: Ibuprofen 800 MG TABLET PO PRN (14:47)
--- NOTE | 2018-01-22 15:02 | Internal Med Progress Note ---
Hospitalist Progress Note - Encounter Date of Encounter: 01/22/18 Time of Encounter: 15:00 - Subjective Interval History: Patient had no acute events overnight. She is POD #0 s/p left hip open pinning. She tolerated procedure well. She states that pain is controlled at this time. She wants Pepsi. She denies fever, chills, chest pain, SOB, nausea , vomiting, or abdominal pain. She has no other complaints at this time. - Exam Vitals: Temp Pulse Resp BP Pulse Ox 97.7 F 60 16 114/68 97 01/22/18 14:54 01/22/18 14:54 01/22/18 14:54 01/22/18 14:54 01/22/18 14:54 Exam: Gen - Awake, alert, no acute distress HEENT - NCAT, PERRLA, EOMI, hearing grossly intact, oropharynx benign CV - RRR, normal S1 and S2, no M/R/G, no BLE edema Resp - Normal WOB, CTAB, no W/R/R GI - Soft, NT/ND, normal bowel sounds, no masses, no HSP Skin - Warm, dry, no rashes/lesions/ulcers Ext - Mild TTP over left hip, dressing over left hip intact and dry Psych - Normal mood and affect, no depression or anxiety - Assessment and Plan (1) Left displaced femoral neck fracture Current Visit: Yes Status: Acute Assessment and Plan: Orthopedics consulted; appreciate input. She is POD #0 s/p left hip open pinning. Continue pain control. Consult PT/OT in AM. (2) GERD (gastroesophageal reflux disease) Current Visit: Yes Status: Chronic Assessment and Plan: Continue home PPI. (3) HTN (hypertension) Current Visit: Yes Status: Chronic Assessment and Plan: Normotensive. Restart home medications. (4) Morbid (severe) obesity due to excess calories Current Visit: Yes Status: Chronic Assessment and Plan: Counselled on lifestyle modifications. (5) DVT prophylaxis Current Visit: Yes Status: Acute Assessment and Plan: Continue lovenox and SCDs - Time Spent with Patient Total time spent is greater than 50% in coordination of care (as documented) at patient's floor/unit and/or counseling patient: less than 15 minutes Plan of Care Discussed with: patient (Family, Nurse) Internal Medicine: Result - Labs CBC & Chem 7: 01/22/18 00:53 08/07/18 00:53 Labs: Short CBC 01/22/18 Range/Units 00:53 WBC 9.9 (4.3-11.1) K/mcL Hgb 11.9 (11.5-15.4) g/dL Hct 36.5 (35.3-44.9) % Plt Count 199 (140-400) K/mcL Neutrophils # 5.5 (1.6-8.9) K/mcL BMP 01/22/18 00:53 Sodium 134 L Potassium 4.1 Chloride 105 Carbon Dioxide 24 BUN 10 Creatinine 0.89 Glucose 99 Calcium 8.5 L - ABG Interpretation ABG results: PT/INR, D-dimer PT 11.2 Seconds (9.4-12.1) 01/21/18 01:14 - Impressions Impressions Fluoroscopy 01/22/18 00:00 IMPRESSION: Intraprocedural fluoroscopic spot images as above. See separate procedure report for more information. D/ / Jose Alejandro Robles MD / Jose Alejandro Robles MD Interpreting Provider: Jose Alejandro Robles MD Hip X-Ray 01/22/18 00:00 IMPRESSION: Intraprocedural fluoroscopic spot images as above. See separate procedure report for more information. D/ / Jose Alejandro Robles MD / Jose Alejandro Robles MD Interpreting Provider: Jose Alejandro Robles MD - VTE Documentation of Mechanical Device: Intermittent pneumatic compression device Consult Discharge Plan - Plan Referrals: Nelson Tolentino MD [Primary Care Provider] - (2) GERD (gastroesophageal reflux disease) Qualifiers: Esophagitis presence: without esophagitis Qualified Code(s): K21.9 - Gastro- esophageal reflux disease without esophagitis (3) HTN (hypertension) Qualifiers: Hypertension type: essential hypertension Qualified Code(s): I10 - Essential (primary) hypertension
[2018-01-22] MEDS ORDERED: Albuterol 2.5 MG/3 ML NEBULIZER IH PRN (15:08)
[2018-01-22] MEDS: CAFFEINE PO SCH ×2 (16:21→20:50)
[2018-01-22] MEDS: ASPIRIN PO SCH ×2 (16:21→20:50)
[2018-01-22] MEDS: BUTALBITAL PO SCH ×2 (16:21→20:50)
[2018-01-22] MEDS: traZODone 50 MG TABLET PO SCH (20:48)
[2018-01-23 01:18] LABS: Basophils % 0.4 %; Eosinophils # 0.2 K/mcL (0.0-0.6); Eosinophils % 1.8 %; Hematocrit 35.3 % (35.3-44.9); Hemoglobin 11.4 g/dL (11.5-15.4); Immature Granulocytes % 0.4 % (0-4); Lymphocytes # 2.9 K/mcL (0.6-4.6); Lymphocytes % 27.5 %; Mean Corpuscular HGB Conc 32.3 g/dL (31.6-35.5); Mean Corpuscular Hemoglobin 30.9 pg (28.0-33.3); Mean Corpuscular Volume 95.7 fL (83.0-100.0); Mean Platelet Volume 11.7 fL (9.4-12.4); Monocytes # 1.2 K/mcL (0.0-1.3); Monocytes % 11.3 %; Neutrophils # 6.2 K/mcL (1.6-8.9); Platelet Count 189 K/mcL (140-400); Red Blood Count 3.69 M/mcL (3.82-4.97); Red Cell Distribution Width 13.4 % (11.5-14.5); Segmented Neutrophils % 58.6 %
[2018-01-23 01:36] LABS: BUN/Creatinine Ratio 10 (6-26); Blood Urea Nitrogen 10 mg/dL (8-23); Calcium 8.2 mg/dL (8.6-10.3); Carbon Dioxide 26 mEq/L (23-29); Chloride 103 mEq/L (98-107); Glucose 108 mg/dL (70-105); Osmolality,Calculated 276 (280-300); Potassium 4.3 mEq/L (3.5-5.1); Sodium 133 mEq/L (136-145); eGFR For Non-African Americans 57 (> 60)
[2018-01-23] MEDS: OXYCODONE Oral CONC 10 MG/0.5 ML ORAL.SYG SL PRN ×3 (02:07→17:16)
[2018-01-23] MEDS: *HR* FentaNYL (PF) 100 MCG/2 ML VIAL IVP PRN (06:01)
[2018-01-23] MEDS: Budesonide/Formoterol 160/4.5 1 PUFF INH IH SCH ×2 (07:58→20:30)
--- NOTE | 2018-01-23 08:05 | Orthopedics Progress Note ---
Date of Encounter: 01/23/18 Time of Encounter: 08:05 Subjective Interval history: Patient was seen this morning doing well without complaints. Afebrile vital signs stable. Operative extremity: Neurovascularly intact Dressing clean dry and intact Calves nontender Assessment and plan: Continue with postoperative care Stable for discharge Objective Vital signs: Vital Signs Temp Pulse Resp BP Pulse Ox 01/23/18 07:59 16 97 01/23/18 07:24 98.3 F 69 16 120/71 97 01/23/18 04:18 98.3 F 66 16 106/64 97 01/23/18 00:16 98.2 F 65 16 94/53 97 01/22/18 20:40 98.8 F 68 16 103/63 98 01/22/18 20:06 23 97 01/22/18 16:27 97.9 F 66 16 106/58 97 01/22/18 15:48 63 16 102/70 96 01/22/18 15:23 97.1 F L 62 16 111/72 95 01/22/18 14:54 97.7 F 60 16 114/68 97 01/22/18 14:27 98.0 F 62 16 107/54 98 01/22/18 14:17 98.0 F 61 16 112/58 99 01/22/18 14:07 61 16 115/58 98 01/22/18 13:57 62 16 99/64 98 01/22/18 13:47 97.3 F L 62 16 104/55 99 01/22/18 13:37 68 16 97/65 99 01/22/18 13:27 67 16 115/68 99 01/22/18 13:17 97.6 F 67 16 124/77 99 01/22/18 12:14 62 157/88 96 Intake and Output 01/22/18 01/23/18 01/23/18 23:59 07:59 15:59 Intake Total 1220 / 1220 Output Total 500 / 500 650 / 650 Balance 720 / 720 -650 / -650 Intake: IV Fluids 1100 / 1100 Ancef 2,000 MG In 0.9 % Sodium 100 / 100 Chloride 100 ML @ 200 mls/hr IVPB Q8H [facility] Rx#:[id number] Oral 120 / 120 Output: Catheter 500 / 500 650 / 650 Urethral ([place]) 200 / 200 Other: Meal Dinner Percent of Meal Consumed 15% Weight 88 kg Patient Weight 01/23/18 23:59 Weight 88 kg - Labs CBC & BMP: 01/23/18 01:00 01/23/18 01:00 Labs: Abnormal lab results RBC 3.69 M/mcL (3.82-4.97) L 01/23/18 01:00 Hgb 11.4 g/dL (11.5-15.4) L 01/23/18 01:00 Sodium 133 mEq/L (136-145) L 01/23/18 01:00 Est GFR (Non-Af Amer) 57 (> 60) L 01/23/18 01:00 Glucose 108 mg/dL (70-105) H 01/23/18 01:00 Calculated Osmolality 276 (280-300) L 01/23/18 01:00 Calcium 8.2 mg/dL (8.6-10.3) L 01/23/18 01:00 Serum Total Protein 5.5 g/dL (6.4-8.9) L 01/21/18 01:14 Globulin 1.8 g/dL (2.4-3.5) L 01/21/18 01:14 Triglycerides 222 mg/dL (< 150) H 01/21/18 01:14 VLDL Cholesterol, Calc 44 mg/dL (< 31) H 01/21/18 01:14 HDL Cholesterol 23 mg/dL (40-59) L 01/21/18 01:14 Cholesterol/HDL Ratio 7.2 (0-4.9) H 01/21/18 01:14 - VTE Documentation of Mechanical Device: Venous foot pump, device Consult Discharge Plan - Plan Referrals: Nelson Tolentino MD [Primary Care Provider] -
[2018-01-23] MEDS: Magnesium Oxide 400 MG TABLET PO SCH (08:16)
[2018-01-23] MEDS: Prenatal Vit/FA 1 EACH TABLET PO SCH (08:16)
[2018-01-23] MEDS: Propranolol LA (24 HR) 80 MG CAP.SA.24H PO SCH (08:17)
[2018-01-23] MEDS: ASPIRIN PO SCH ×2 (08:17→12:03)
[2018-01-23] MEDS: Furosemide 40 MG TABLET PO SCH (08:17)
[2018-01-23] MEDS: CAFFEINE PO SCH ×2 (08:17→12:03)
[2018-01-23] MEDS: BUTALBITAL PO SCH ×2 (08:17→12:03)
[2018-01-23] MEDS: clonazePAM 1 MG TABLET PO PRN ×2 (08:20→21:10)
[2018-01-23] MEDS ORDERED: Acetaminophen/Butalbital/CaffeineTABLET PO PRN (14:15)
--- NOTE | 2018-01-23 15:03 | Electrocardiograph Report ---
[address] [place], [place] [address] Test Date: 2018-01-21 Pat Name: Nicci Mcfarland Department: 114 Room: [facility] Gender: F Vp [employer] Development: : 1955 Requested By: Arvin Ronquillo Order Number: [id number] Reading MD: Dominick Laurent Measurements Intervals [place] Rate: 59 P: 134 NV: 167 QRS: 138 QRSD: 92 T: 205 QT: 410 QTc: 410 Interpretive Statements SINUS BRADYCARDIA ARM LEADS REVERSED Electronically Signed On 01-23-2018 15:02:08 EDT by Dominick Laurent
--- NOTE | 2018-01-23 16:24 | Discharge Summary ---
- NOTES TO OUTPATIENT PROVIDER Notes to Outpatient Provider: Follow up with acute inpatient rehabilitation facility physician in 2-3 days after discharge. Recheck BMP and CBC at that time. Date of Encounter: 01/23/18 Time of Encounter: 16:22 - Discharge Diagnosis (1) Left displaced femoral neck fracture Priority: Primary Status: Acute (2) GERD (gastroesophageal reflux disease) Priority: Secondary Status: Chronic Qualifiers: Esophagitis presence: without esophagitis Qualified Code(s): K21.9 - Gastro -esophageal reflux disease without esophagitis (3) HTN (hypertension) Priority: Secondary Status: Chronic Qualifiers: Hypertension type: essential hypertension Qualified Code(s): I10 - Essential (primary) hypertension (4) Morbid (severe) obesity due to excess calories Priority: Secondary Status: Chronic (5) DVT prophylaxis Priority: Secondary Status: Acute Hospital course: Ms. Mcfarland is a 62 year old female admitted for left hip femur fracture s/p fall. She was admitted to orthopedic floor with telemetry. Orthopedic surgery was consulted. Cardiology was consulted for pre-op clearance because patient had unequivocal stress test few days prior to admission. Patient was cleared for surgery and had left hip open pinning. She is POD #1 today and pain is well- controlled. [facility] 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 Patient will follow up with rehab physician in 2-3 days after discharge. Repeat BMP and CBC can be checked at that time. Patient has met maximum benefit of this hospitalization and will be conditionally discharged to [facility] pending acceptance and insurance approval in stable condition. Discharge discussed with: patient, nurse, social work - Time Spent with Patient Total time spent providing and/or coordinating discharge services: Greater than 30 minutes - Discharge Medications Prescriptions: Butalbital/Aspirin/Caffeine [Vtnubuqsvm-IYI-Oqtqdnmi Cap] 1 each PO QID PRN 3 Days #12 capsule PRN Reason: Migraine Headache Diphenoxylate/Atropine [Lomotil 2.5 mg/0.025 mg] 1 each PO BID PRN 3 Days #6 tablet PRN Reason: Diarrhea Lidocaine Patch [Lidoderm 5% patch] 1 each TP DAILY 7 Days #7 adh..patch OXYCODONE Oral CONC [Oxycodone Oral Conc] 10 mg SL Q6H PRN 3 Days #6 ml PRN Reason: Severe Pain Home Medications: Furosemide [Lasix] 40 mg PO DAILY 08/18/15 [History] Magnesium Oxide [Magnesium] 400 mg PO DAILY 08/18/15 [History] Pantoprazole Sodium [Protonix] 40 mg PO DAILY 08/18/15 [History] Pnv with Ca,No.72/Iron,Carb/FA [ Plus Iron Tablet] 1 each PO DAILY 08/17 [History] Potassium Chloride 10 meq PO BIDWM 08/18/15 [History] Promethazine HCl 25 mg PO QID PRN 08/18/15 [History] Propranolol HCl 80 mg PO DAILY 08/18/15 [History] Sodium Chloride [Sodium Chloride Tab] 1 gm PO DAILY 08/18/15 [History] Spironolactone [Aldactone] 25 mg PO DAILY 08/18/15 [History] Tizanidine HCl 4 mg PO Q8H PRN 08/18/15 [History] Trazodone HCl 150 mg PO HS 08/18/15 [History] clonazePAM [Klonopin] 2 mg PO BID PRN 08/18/15 [History] Budesonide/Formoterol 160/4.5 [Symbicort 160/4.5] 160 mcg IH BID 01/20/18 [ History] Ibuprofen 800 mg PO Q8HR PRN 01/20/18 [History] Meclizine HCl [Verticalm] 25 mg PO QID PRN 01/20/18 [History] Montelukast [Singulair] 10 mg PO HS 01/20/18 [History] Proair Hfa 8.5 g IH Q4HR PRN 01/20/18 [History] Prochlorperazine Maleate [Compazine] 10 mg PO BID 01/20/18 [History] Acetaminophen [Tylenol] 650 mg PO Q6HR PRN tablet 01/23/18 [Rx] Buspirone HCl [Buspar] 10 mg PO DAILY tablet 01/23/18 [Rx] Butalbital/Aspirin/Caffeine [Dnyzmxrwph-TOH-Cowdyxrj Cap] 1 each PO QID PRN 3 Days #12 capsule 01/23/18 [Rx] Diphenoxylate/Atropine [Lomotil 2.5 mg/0.025 mg] 1 each PO BID PRN 3 Days #6 tablet 01/23/18 [Rx] Lidocaine Patch [Lidoderm 5% patch] 1 each TP DAILY 7 Days #7 adh..patch [Rx] OXYCODONE Oral CONC [Oxycodone Oral Conc] 10 mg SL Q6H PRN 3 Days #6 ml [Rx] Allergies/Adverse Reactions: 3 Allergy/AdvReac Type Severity Reaction Status Date / Time acetaminophen Allergy Nausea Verified 01/21/18 10:03 [From Tylenol-Codeine #3] codeine Allergy Nausea Verified 01/21/18 10:03 [From Tylenol-Codeine #3] clindamycin AdvReac Hives Verified 01/26/17 12:27 hydrocodone [From Vicodin] AdvReac Hives Verified 08/18/15 09:22 Iodinated Contrast- Oral and AdvReac Hives Verified 08/18/15 09:22 IV Dye prednisone AdvReac Hives Verified 08/18/15 09:22 Date of admission: 01/20/18 19:34 Primary care physician: Nelson Tolentino MD Consults: 01/20/18 18:05 Consult to Orthopedic Surgery [CONS] Routine Consulting Provider: [facility] Reason for Consult: left femur fracture Time Notified: 18:06 Call Completed: No 01/21/18 15:17 Consult to Cardiology [CONS] Routine Comment: Consulting Provider: [facility] Reason for Consult: Pre-op clearance. Abnormal Stress Test. Call Completed: Yes 01/22/18 14:47 Consult to Occupational Therapy [CONS] Routine Comment: Evaluate, develop and implement POC Reason for Consult: post hip surgery Does patient have active BEDREST order?: No Is patient medically & hemodynamically stable?: Yes Patient assessed for mobility or mobilized this visit?: No Consult to Orthopedic Navigator [CONS] [CONS] Routine Consult to Physical Therapy [CONS] Routine Comment: Evaluate, develop and implement POC Reason for Consult: post hip surgery Does patient have active BEDREST order?: No Is patient medically & hemodynamically stable?: Yes Patient assessed for mobility or mobilized this visit?: Yes Consult to Drafting Instructor [CONS] Routine Reason for SW Consult: post -op hip fracture RT Post Op Consult [CONS] Routine Discharging clinician: Aaron Tripathi Anticipated date of discharge: 01/23/18 - Constitutional Vitals: Temp Pulse Resp BP Pulse Ox 98.2 F 70 15 106/68 94 01/23/18 11:38 01/23/18 11:38 01/23/18 11:38 01/23/18 11:38 01/23/18 11:38 General appearance: Present: cooperative, A&O X 3, pleasant, no acute distress, answers questions appropriately - Respiratory Respiratory exam: Present: CTAB. Absent: accessory muscle use, rales, rhonchi, wheezes Additional comments: Normal WOB - Cardiovascular Cardiovascular exam: Present: RRR, +S1, +S2. Absent: diastolic murmur, gallop, rubs, systolic murmur Additional comments: No BLE edema - GI/Abdominal GI/Abdominal exam: Present: normal bowel sounds, soft. Absent: distended, hepatomegaly, mass, splenomegaly, tenderness - Extremities Exam Additional comments: Mild TTP over left hip, dressing over left hip intact and dry - Psychiatric Psychiatric exam: Present: normal affect, normal mood. Absent: agitated, anxious, depressed - Skin Skin exam: Present: dry, warm. Absent: cyanosis, erythema, rash - Patient Status Disposition: Transfer Inpatient Rehab Fac Condition: Good Overall status at discharge: patient is progressing back to baseline - Discharge Instructions Follow Up With: Nelson Tolentino MD [Primary Care Provider] - Additional Instructions: Follow up with acute inpatient rehabilitation facility physician in 2-3 days after discharge. Recheck BMP and CBC at that time. - Diet and Activity Activity: as per physical therapy Diet: low fat, low cholesterol, low salt diet, other (Cardiac Diet) - VTE Documentation of Mechanical Device: Venous foot pump, device
--- NOTE | 2018-01-23 16:47 | Physician Discharge Referral ---
ExtendedCare Referral Info Transfer To: Acute Inpatient Rehabilitation Facility (?[facility]) Provider in Charge after Transfer: Other ([facility] Physician) Institutional Level of Care: Skilled - Diagnosis (1) Left displaced femoral neck fracture Priority: Primary Status: Acute (2) GERD (gastroesophageal reflux disease) Priority: Secondary Status: Chronic (3) HTN (hypertension) Priority: Secondary Status: Chronic (4) Morbid (severe) obesity due to excess calories Priority: Secondary Status: Chronic (5) DVT prophylaxis Priority: Secondary Status: Acute Expected Duration of Placement: 4 weeks Prognosis: Good Aware of Diagnosis: Patient, Family Aware of Prognosis: Patient, Family - Transfer Medications Prescriptions: Butalbital/Aspirin/Caffeine [Zqupglesab-DBI-Flutysvu Cap] 1 each PO QID PRN 3 Days #12 capsule PRN Reason: Migraine Headache Diphenoxylate/Atropine [Lomotil 2.5 mg/0.025 mg] 1 each PO BID PRN 3 Days #6 tablet PRN Reason: Diarrhea Lidocaine Patch [Lidoderm 5% patch] 1 each TP DAILY 7 Days #7 adh..patch OXYCODONE Oral CONC [Oxycodone Oral Conc] 10 mg SL Q6H PRN 3 Days #6 ml PRN Reason: Severe Pain Home Medications: Furosemide [Lasix] 40 mg PO DAILY 08/18/15 [History] Magnesium Oxide [Magnesium] 400 mg PO DAILY 08/18/15 [History] Pantoprazole Sodium [Protonix] 40 mg PO DAILY 08/18/15 [History] Pnv with Ca,No.72/Iron,Carb/FA [ Plus Iron Tablet] 1 each PO DAILY 08/17 [History] Potassium Chloride 10 meq PO BIDWM 08/18/15 [History] Promethazine HCl 25 mg PO QID PRN 08/18/15 [History] Propranolol HCl 80 mg PO DAILY 08/18/15 [History] Sodium Chloride [Sodium Chloride Tab] 1 gm PO DAILY 08/18/15 [History] Spironolactone [Aldactone] 25 mg PO DAILY 08/18/15 [History] Tizanidine HCl 4 mg PO Q8H PRN 08/18/15 [History] Trazodone HCl 150 mg PO HS 08/18/15 [History] clonazePAM [Klonopin] 2 mg PO BID PRN 03/02/16 [History] Budesonide/Formoterol 160/4.5 [Symbicort 160/4.5] 160 mcg IH BID 01/20/18 [ History] Ibuprofen 800 mg PO Q8HR PRN 01/20/18 [History] Meclizine HCl [Verticalm] 25 mg PO QID PRN 01/20/18 [History] Montelukast [Singulair] 10 mg PO HS 01/20/18 [History] Proair Hfa 8.5 g IH Q4HR PRN 01/20/18 [History] Prochlorperazine Maleate [Compazine] 10 mg PO BID 01/20/18 [History] Acetaminophen [Tylenol] 650 mg PO Q6HR PRN tablet 01/23/18 [Rx] Buspirone HCl [Buspar] 10 mg PO DAILY tablet 01/23/18 [Rx] Butalbital/Aspirin/Caffeine [Mbnrppdjxx-YWM-Edfofgrt Cap] 1 each PO QID PRN 3 Days #12 capsule 01/23/18 [Rx] Diphenoxylate/Atropine [Lomotil 2.5 mg/0.025 mg] 1 each PO BID PRN 3 Days #6 tablet 01/23/18 [Rx] Lidocaine Patch [Lidoderm 5% patch] 1 each TP DAILY 7 Days #7 adh..patch [Rx] OXYCODONE Oral CONC [Oxycodone Oral Conc] 10 mg SL Q6H PRN 3 Days #6 ml [Rx] Allergies/Adverse Reactions: 3 Allergy/AdvReac Type Severity Reaction Status Date / Time acetaminophen Allergy Nausea Verified 01/21/18 10:03 [From Tylenol-Codeine #3] codeine Allergy Nausea Verified 01/21/18 10:03 [From Tylenol-Codeine #3] clindamycin AdvReac Hives Verified 01/26/17 12:27 hydrocodone [From Vicodin] AdvReac Hives Verified 08/18/15 09:22 Iodinated Contrast- Oral and AdvReac Hives Verified 08/18/15 09:22 IV Dye prednisone AdvReac Hives Verified 08/18/15 09:22 - Respiratory Orders None Smoking Cessation: Smoking cessation has been advised. For more information, call the [place] Tobacco Quit Line at 3-069-FMTZ-NOW. - Lab Orders Lab Orders: CBC (in 2-3 days after discharge), Other (include drug levels w/ frequency) (BMP in 2-3 days after discharge) - Advance Directives Code Status: Full Code - Mobility Orders Other (Per physical therapy) - Rehabiliation Orders Rehab Potential: Good Rehab Orders: ROM Exercises, Evaluation for Physical Therapy, Evaluation for Occupational Therapy - Diet Orders No Added Salt (JACQUELINE), Cardiac CERTIFICATION: I certify that the transfer of the above named patient to an Extended Care Facility is necessary for the continuing treatment of the diagnosis listed. The above information is true and accurate reflection of patient's current condition. Confidential - Redisclosure prohibited without a patient's written consent.
[2018-01-23] MEDS: traZODone 50 MG TABLET PO SCH (22:10)
[2018-01-24] MEDS: OXYCODONE Oral CONC 10 MG/0.5 ML ORAL.SYG SL PRN ×2 (02:20→10:59)
[2018-01-24] MEDS ORDERED: *HR* Enoxaparin 30 MG/0.3 ML SYRINGE SQ SCH (06:00)
[2018-01-24] MEDS: Budesonide/Formoterol 160/4.5 1 PUFF INH IH SCH (08:07)
--- NOTE | 2018-01-24 08:37 | Internal Med Progress Note ---
Hospitalist Progress Note - Encounter Date of Encounter: 01/24/18 Time of Encounter: 08:34 - Subjective Interval History: Patient had no acute events overnight. She is POD #2 s/p left hip open pinning. She states that pain is controlled at this time. Therapy is going well. She denies fever, chills, chest pain, SOB, nausea, vomiting, or abdominal pain. She has no other complaints at this time. Discharge is complete and we are awaiting social worker palliative care getting final approval for [facility]. - Exam Vitals: Temp Pulse Resp BP Pulse Ox 99.2 F 72 16 119/72 94 01/24/18 07:00 01/24/18 07:00 01/24/18 08:07 01/24/18 07:00 01/24/18 08:07 Exam: Gen - Awake, alert, no acute distress HEENT - NCAT, PERRLA, EOMI, hearing grossly intact, oropharynx benign CV - RRR, normal S1 and S2, no M/R/G, no BLE edema Resp - Normal WOB, CTAB, no W/R/R GI - Soft, NT/ND, normal bowel sounds, no masses, no HSP Skin - Warm, dry, no rashes/lesions/ulcers Ext - Mild TTP over left hip, dressing over left hip intact and dry Psych - Normal mood and affect, no depression or anxiety - Assessment and Plan (1) Left displaced femoral neck fracture Current Visit: Yes Status: Acute Assessment and Plan: Orthopedics consulted; appreciate input. She is POD #2 s/p left hip open pinning. Continue pain control. Continue PT/OT. Plan for discharge today to [facility] pending approval by social work. Discharge and ECF referral paperwork are complete. (2) GERD (gastroesophageal reflux disease) Current Visit: Yes Status: Chronic Assessment and Plan: Continue home PPI. (3) HTN (hypertension) Current Visit: Yes Status: Chronic Assessment and Plan: Normotensive. Continue home medications. (4) Morbid (severe) obesity due to excess calories Current Visit: Yes Status: Chronic Assessment and Plan: Counselled on lifestyle modifications. (5) DVT prophylaxis Current Visit: Yes Status: Acute Assessment and Plan: Continue lovenox and SCDs - Time Spent with Patient Total time spent is greater than 50% in coordination of care (as documented) at patient's floor/unit and/or counseling patient: less than 15 minutes Plan of Care Discussed with: patient (Nurse, Social Work) Internal Medicine: Result - Labs CBC & Chem 7: 01/23/18 01:00 01/23/18 01:00 - ABG Interpretation ABG results: PT/INR, D-dimer PT 11.2 Seconds (9.4-12.1) 01/21/18 01:14 - VTE Documentation of Mechanical Device: Venous foot pump, device Consult Discharge Plan - Plan Additional Instructions: Follow up with acute inpatient rehabilitation facility physician in 2-3 days after discharge. Recheck BMP and CBC at that time. Referrals: Nelson Tolentino MD [Primary Care Provider] - Prescriptions: Butalbital/Aspirin/Caffeine [Uqnmvaajuf-DUA-Dsydhisb Cap] 1 each PO QID PRN 3 Days #12 capsule PRN Reason: Migraine Headache Diphenoxylate/Atropine [Lomotil 2.5 mg/0.025 mg] 1 each PO BID PRN 3 Days #6 tablet PRN Reason: Diarrhea Lidocaine Patch [Lidoderm 5% patch] 1 each TP DAILY 7 Days #7 adh..patch OXYCODONE Oral CONC [Oxycodone Oral Conc] 10 mg SL Q6H PRN 3 Days #6 ml PRN Reason: Severe Pain (2) GERD (gastroesophageal reflux disease) Qualifiers: Esophagitis presence: without esophagitis Qualified Code(s): K21.9 - Gastro- esophageal reflux disease without esophagitis (3) HTN (hypertension) Qualifiers: Hypertension type: essential hypertension Qualified Code(s): I10 - Essential (primary) hypertension
[2018-01-24] MEDS: clonazePAM 1 MG TABLET PO PRN (09:05)
[2018-01-24] MEDS: Furosemide 40 MG TABLET PO SCH (09:05)
[2018-01-24] MEDS: Magnesium Oxide 400 MG TABLET PO SCH (09:05)
[2018-01-24] MEDS: Prenatal Vit/FA 1 EACH TABLET PO SCH (09:05)
[2018-01-24] MEDS: Propranolol LA (24 HR) 80 MG CAP.SA.24H PO SCH (09:05)
[2018-01-24 11:37] VITALS: BP 98/66
== END 2018-01-24 14:25 | DRG 308 ==
LOC: 3NENU
PROVIDERS: ADMIT Internal Medicine; ATTEND Internal Medicine

== ENCOUNTER 2018-07-03 08:41 | Inpatient (IN) ==
--- NOTE | 2018-07-02 14:25 | Anesthesia Evaluation PreOp ---
Date of Encounter: 07/03/18 Time of Encounter: 09:13 - Past History Planned Operation: bronchoscopy R upper lobectomy Cardiac History: HTN Pulmonary History: Smoker, Other (lung cancer) Other Medical History: Renal (CKD), GERD, Other (IBS, Kartagener's syndrome (situs inversus, chronic sinus infections, and bronchiectasis)) Anesthesia History: No Prior Anesthetic Complications, Past Anesthesia (breast reductions, T&A, hip pinning, GB, knee scope) : No Alcohol Use: rarely Drug use: none Medications and Allergies Furosemide [Lasix] 40 mg PO DAILY 08/18/15 [History] Magnesium Oxide [Magnesium] 400 mg PO DAILY 08/18/15 [History] Pantoprazole Sodium [Protonix] 40 mg PO DAILY 08/18/15 [History] Pnv with Ca,No.72/Iron,Carb/FA [ Plus Iron Tablet] 1 each PO DAILY 08/18/15 [History] Potassium Chloride 10 meq PO BIDWM 08/18/15 [History] Promethazine HCl 25 mg PO QID PRN 08/18/15 [History] Propranolol HCl 80 mg PO DAILY 08/18/15 [History] Sodium Chloride [Sodium Chloride Tab] 1 gm PO DAILY 08/18/15 [History] Spironolactone [Aldactone] 25 mg PO DAILY 08/18/15 [History] Tizanidine HCl 4 mg PO Q8H PRN 08/18/15 [History] Trazodone HCl 150 mg PO HS 08/18/15 [History] clonazePAM [Klonopin] 2 mg PO BID PRN 08/18/15 [History] Meclizine HCl [Verticalm] 25 mg PO QID PRN 01/20/18 [History] Acetaminophen [Tylenol] 650 mg PO Q6HR PRN tablet 01/23/18 [Rx] Butalbital/Aspirin/Caffeine [Hbekyzmggu-JUE-Xczuqyri Cap] 1 each PO QID PRN 3 Days #12 capsule 01/23/18 [Rx] Diphenoxylate/Atropine [Lomotil 2.5 mg/0.025 mg] 1 each PO BID PRN 3 Days #6 tablet 01/23/18 [Rx] Albuterol Sulfate [Albuterol Inhaler] 2 puff IH Q6H PRN 06/24/18 [History] Pseudoephed/Acetaminoph/Diphen [Sm Allergy Sinus Headache T] 1 each PO AD PRN 06/24/18 [History] Allergy/AdvReac Type Severity Reaction Status Date / Time acetaminophen Allergy Nausea Verified 01/21/18 10:03 [From Tylenol-Codeine #3] codeine Allergy Nausea Verified 01/21/18 10:03 [From Tylenol-Codeine #3] clindamycin AdvReac Hives Verified 01/26/17 12:27 hydrocodone [From Vicodin] AdvReac Hives Verified 08/18/15 09:22 Iodinated Contrast- Oral and AdvReac Hives Verified 08/18/15 09:22 IV Dye prednisone AdvReac Hives Verified 08/18/15 09:22 - Meds/Allergy Pre-op Review Medications Reviewed: Yes Allergies Reviewed: Yes Beta Blockers on Current Med List: Yes (propranolol ) If Beta Blockers taken, Date/Time (Last Dose taken): 0500 Anesthesia Results - Labs Laboratory Tests 06/24/18 06/28/18 07/01/18 14:06 11:05 12:17 WBC 11.5 H Hgb 12.8 Hct 39.2 Plt Count 234 ABG pH 7.38 ABG pCO2 41 ABG pO2 68 L ABG HCO3 24 ABG Total CO2 26 ABG O2 Saturation 93 L Inspired O2 21.0 Sodium Potassium Chloride Carbon Dioxide BUN Creatinine POC Estimated GFR (eGFR) 50 L Est GFR (Non-Af Amer) 07/01/18 12:17 WBC Hgb Hct Plt Count ABG pH ABG pCO2 ABG pO2 ABG HCO3 ABG Total CO2 ABG O2 Saturation Inspired O2 Sodium 138 Potassium 4.4 Chloride 108 H Carbon Dioxide 25 BUN 9 Creatinine 1.00 POC Estimated GFR (eGFR) Est GFR (Non-Af Amer) 56 L - Imaging EKG: report reviewed Additional studies: PFT 06/27/2018 INTERPRETATION: Quality: Acceptable for interpretation Lung Volumes: Slow vital capacity is reduced and if clinically indicated full lung volume testing can be completed later time DLCO: Severe impairment in gas exchange Cardiology pre op clearance from 01/2018 for hip surgery Assessment and Plan (1) Pre-operative cardiovascular examination Current Visit: Yes Status: Acute Cardiology asked to evaluate patient prior to hip surgery for acute hip fracture. She denies cardiac symptoms and was able to do 4 mets activity prior to her fall this morning. Stress test reviewed. Medium sized, moderately severe intensity partially fixed perfusion defect involving the basal-mid anterolateral segments with worsening in the distal stress segments. While findings may represent artifact, reversible ischemia cannot be excluded. Pharmacologic stress ECG is non diagnostic for ischemia due to baseline non-specific ST and T changes. Gated EF > 70%. Perfusion imaging was equivocal. Findings likely artifact. If there is an area o f concern it can be managed medically. No further testing warranted in the setting of acute hip fracture needing repair. Anymore procedures from cardiology would delay her surgery and cause potential demise. Anesthesia Exam Vital Signs/O2 Sat/Glucose, Most Recent Temp Pulse Resp BP Pulse Ox 98.0 F 66 16 111/67 96 07/03/18 09:06 07/03/18 09:06 07/03/18 09:06 07/03/18 09:06 07/03/18 09:06 Weight: 83 kg NPO (# of Hours): > 8 hr - HEENT Pupil (Motor): Pupils equal Mallampati: III Teeth: Normal Oral Opening: Greater than 3 (overbite) - ACLS SPECIALIST LOC: Oriented ACLS SPECIALIST Motor: Normal RUE, Normal LUE, Normal RLE, Normal LLE, Normal Face ACLS SPECIALIST Sensory: Normal: RUE, LUE, RLE, LLE, Face - Cardiac Rhythm: Regular Murmur: None - Pulmonary Breath Sounds: bilateral Clear Respiratory Effort: Symmetrical Anesthesia Assess/Plan ASA Score: 3 Level of consciousness: Cooperative, Oriented, Anxious Anesthetic Plan: General Monitoring Plan: Standard Monitors Recovery Plan: PACU
[2018-07-03] MEDS ORDERED: *HR* FentaNYL (PF) 100 MCG/2 ML VIAL ONE ×2 (08:44→08:59)
[2018-07-03] MEDS ORDERED: Propofol 500 MG/50 ML INFUS..BTL ONE (08:44)
[2018-07-03] MEDS ORDERED: Lidocaine -MPF 2% 2 ML VIAL ONE (08:44)
[2018-07-03] MEDS ORDERED: *HR* Rocuronium Bromide 50 MG/5 ML VIAL ONE ×2 (08:44→10:48)
[2018-07-03] MEDS ORDERED: Dexamethasone 4 MG/ML VIAL ONE (08:44)
[2018-07-03] MEDS ORDERED: Ondansetron 4 MG/2 ML VIAL ONE (08:44)
[2018-07-03] MEDS ORDERED: Lidocaine -MPF 4% 5 ML AMPUL ONE (08:44)
[2018-07-03] MEDS ORDERED: *HR* Succinylcholine 200 MG/10 ML VIAL IVP ONE (08:44)
--- NOTE | 2018-07-03 09:04 | History & Physical Report ---
Date of Encounter: 07/03/18 Time of Encounter: 09:03 24 Hour HP Update - Instructions Instructions: If the History and Physical is less than 30 days old and was completed prior to A.M. admission and or procedure and has NOT been updated on calendar day of procedure please complete this update prior to performing procedure. - Update Patient reports changes in Medical Condition: No Changes in examination, assessment, or condition: No Changes in Medication: No Preop tests/diagnostics Reviewed: Yes Pre-Op MRSA Screen: Negative Surgery Remains Indicated: Yes Consent for Planned Operative Procedure(s) Verified: Yes - Pre-Operative Checklist Preoperative Checklist Indicated: Yes Prophylactic Antibiotic Ordered: Yes Home Medications Include Beta Emery: No Beta Emery Taken Today (Day of Surgery): No Beta Emery Taken Yesterday (Day Prior to Surgery): No Is VTE Prophylaxis Indicated?: Yes
[2018-07-03] MEDS ORDERED: Famotidine 20 MG/2 ML VIAL IVP ONE (09:07)
[2018-07-03] MEDS ORDERED: Acetaminophen IV 1,000 MG/100 ML INFUS..BTL IVPB ONE (09:07)
[2018-07-03] MEDS ORDERED: Gabapentin 300 MG CAPSULE PO ONE (09:07)
[2018-07-03] MEDS ORDERED: *HR* Promethazine 25 MG/ML VIAL IVP PRN (09:29)
[2018-07-03] MEDS ORDERED: Ondansetron 4 MG/2 ML VIAL IVP ONE (09:29)
[2018-07-03] MEDS ORDERED: *HR* HYDROmorphone (PF) 1 MG/ML SYRINGE IVP PRN (09:29)
[2018-07-03] MEDS ORDERED: *HR* Labetalol 20 MG/4 ML SYRINGE IVP PRN (09:29)
[2018-07-03] MEDS ORDERED: *HR* OxyCODONE Immed Rel 5 MG TABLET PO PRN (09:29)
[2018-07-03] MEDS ORDERED: Ketorolac 30 MG/ML VIAL IVP ONE (09:29)
[2018-07-03] MEDS ORDERED: Albuterol 2.5 MG/3 ML NEBULIZER IH PRN (09:29)
[2018-07-03] MEDS ORDERED: Albuterol 2.5 MG/3 ML NEBULIZER IH ONE (09:40)
[2018-07-03] MEDS ORDERED: SUGAMMADEX SODIUM 500 MG/5 ML VIAL IV ONE (09:40)
[2018-07-03] MEDS ORDERED: Ringers Solution, Lactated 1,000 ML IVC SCH (09:45)
[2018-07-03] MEDS ORDERED: *HR* Midazolam HCl 2 MG/2 ML VIAL ONE (09:59)
[2018-07-03] MEDS ORDERED: Levofloxacin 500 MG/100 ML 500 MG/100 ML BAG IVPB ONE ×2 (09:59→10:04)
[2018-07-03] MEDS ORDERED: *HR* HYDROMORPHONE 2 MG/ML VIAL ONE (11:14)
[2018-07-03] MEDS ORDERED: *HR* PHENYLEPHRINE 1,000 MCG/10 ML SYRINGE IVP ONE (11:16)
--- NOTE | 2018-07-03 12:34 | Operative Note ---
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 wedge x 2 lower lobe Condition: stable Disposition: ICU (because no stepdown beds available.) Procedure in Detail: patient was brought to the operating room and place don the or table in the supine position, after undergoing general anesthesia with dvt and infxn prophylaxis, bronchoscopy was performed. no endobronchial masses seen. no other anatomic anomalies from the situs inversus totalis. patient was positioned in the left lateral decubitus position the care to pad all pressure points. a muscle spairing thoractomy incision made. pneumolysis for 30 min performed. arterial, venous, bronchial and fissures divided with Covidien yosvany. wedge reseciton x 2 performed for pneumolysis. lymph node dissection performed. paravertebral nerve blocks performed. 28 fr. chest tube placed and secure with ethibond suture. intercostal space and ausculatory triangle closed with 1 vicryl. elia drain placed and secured with silk suture. dermis closed with 2 layers of 0 vicryl. dermis closed with 4-0 monocryl. sterile gauzes placed. patient taken to the icu because stepdown beds not available. she was stable.
[2018-07-03] MEDS ORDERED: Naloxone 0.4 MG/ML INJ IVP PRN (12:55)
[2018-07-03] MEDS ORDERED: *HR* HYDROmorphone 20 MG/20 ML PCA IVC PRN ×2 (12:55→17:37)
[2018-07-03] MEDS ORDERED: Azelastine 0.1% Nasal Spray 30 ML BOTTLE NS PRN (12:55)
[2018-07-03] MEDS: 0.9 % Sodium Chloride 1,000 ML IVC SCH (13:21)
[2018-07-03] MEDS ORDERED: 0.9 % Sodium Chloride 1,000 ML ONE (13:21)
[2018-07-03] MEDS ORDERED: Albumin Human 5% 25.0 GM/500 ML VIAL ONE (13:24)
--- NOTE | 2018-07-03 13:24 | Anesthesia Evaluation Post Op ---
Date of Encounter: 07/03/18 Time of Encounter: 13:22 - Vital Signs Vital Signs: Vital Signs/O2 Sat/Glucose, Most Recent Temp Pulse Resp BP Pulse Ox 97.5 F L 55 12 92/35 100 07/03/18 12:50 07/03/18 13:05 07/03/18 13:05 07/03/18 13:05 07/03/18 13:05 Blood Glucose* 131 - Lungs Lungs: Clear Ascult./Percussion - Airway Airway: Non-obstructed - Cardiovascular Regular Rate - Mental Status Mental Status: Sedated - Pain Pain Scale: 2 - Nausea Vomiting Nausea Vomiting: Not Present - Hydration Hydration: NPO - Discharge Attestation: patient extubated and stable in ICU
[2018-07-03] MEDS: clonazePAM 1 MG TABLET PO SCH ×2 (14:59→20:23)
[2018-07-03] MEDS: Gabapentin 300 MG CAPSULE PO SCH ×2 (15:00→20:23)
[2018-07-03] MEDS: Naloxone 0.4 MG/ML INJ IVP PRN ×2 (15:12→15:14)
[2018-07-03] MEDS: Albuterol 2.5 MG/3 ML NEBULIZER IH SCH ×2 (16:32→21:51)
[2018-07-03] MEDS: Ketorolac 15 MG/ML VIAL IVP SCH (17:25)
[2018-07-03] MEDS: traZODone 50 MG TABLET PO SCH (20:23)
[2018-07-03] MEDS: tiZANidine 4 MG TABLET PO SCH (20:23)
[2018-07-04] MEDS: Ketorolac 15 MG/ML VIAL IVP SCH ×4 (00:05→18:23)
[2018-07-04] MEDS: 0.9 % Sodium Chloride 1,000 ML IVC SCH (02:40)
[2018-07-04] MEDS: Albuterol 2.5 MG/3 ML NEBULIZER IH SCH ×4 (03:57→22:35)
[2018-07-04 05:28] LABS: Basophils % 0.2 %; Eosinophils % 0.2 %; Immature Granulocytes % 0.4 % (0-4); Lymphocytes # 1.7 K/mcL (0.6-4.6); Mean Corpuscular HGB Conc 30.6 g/dL (31.6-35.5); Mean Corpuscular Hemoglobin 30.3 pg (28.0-33.3); Mean Corpuscular Volume 99.1 fL (83.0-100.0); Mean Platelet Volume 11.3 fL (9.4-12.4); Monocytes % 10.6 %; Neutrophils # 15.1 K/mcL (1.6-8.9); Platelet Count 219 K/mcL (140-400); Red Blood Count 3.43 M/mcL (3.82-4.97); Red Cell Distribution Width 14.6 % (11.5-14.5); Segmented Neutrophils % 79.6 %
[2018-07-04 05:30] LABS: Hemoglobin 10.4 g/dL (11.5-15.4)
[2018-07-04 05:48] LABS: BUN/Creatinine Ratio 13 (6-26); Blood Urea Nitrogen 13 mg/dL (8-23); Calcium 8.3 mg/dL (8.6-10.3); Carbon Dioxide 23 mEq/L (23-29); Chloride 108 mEq/L (98-107); Glucose 134 mg/dL (70-105); Osmolality,Calculated 286 (280-300); Potassium 4.8 mEq/L (3.5-5.1); Sodium 137 mEq/L (136-145); eGFR For Non-African Americans 56 (> 60)
[2018-07-04] MEDS: Gabapentin 300 MG CAPSULE PO SCH ×3 (07:43→21:53)
[2018-07-04] MEDS: clonazePAM 1 MG TABLET PO SCH ×3 (07:46→21:54)
[2018-07-04] MEDS ORDERED: Furosemide 40 MG TABLET PO SCH (09:00)
[2018-07-04] MEDS ORDERED: Propranolol LA (24 HR) 80 MG CAP.SA.24H PO SCH (09:00)
--- NOTE | 2018-07-04 10:22 | Cardiothoracic Progress Note ---
Date of Encounter: 07/04/18 Time of Encounter: 10:21 - Assessment and plan (1) Cancer of upper lobe of right lung Current Visit: Yes Status: Acute hold lasix, replace mg, and place parameters for propanolol. rounded with nurse. (2) Pulmonary histoplasmosis Current Visit: Yes Status: Chronic The assessment and plan as outlined above was discussed with the patient and/or family members who expressed understanding and agreement. All questions were answered. 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 All questions were answered. - Subjective Interval history: denies n/v Vital Signs, Last 4 Hours Temp Pulse Resp BP Pulse Ox 07/04/18 10:04 18 95 07/04/18 09:00 71 18 92/58 95 07/04/18 08:00 98.5 F 74 16 98/47 98 07/04/18 07:00 70 18 90/54 100 Oxgyen Flow Rate Oxygen Flow Rate (LPM) 2 Clinical Data, last 8 Hours Output, Chest Tube Drainage 63 Amount [Right Lateral Chest #1 ] Output, Chest Tube Drainage 42 Amount [Right Lateral Chest #1 ] Weight 07/02/18 07/03/18 07/04/18 23:59 23:59 23:59 Weight 85.4 kg - Physical Examination General: Conversant, No Apparent Distress HEENT: Atraumatic, Normocephaly Cardiac: Reg Rate and Rhythm, Normal S1 and S2 Incision: No signs of infection, Dry/intact dressing Chest tubes: Minimal drainage, Air leak Lungs: Normal Breath Sounds, Other (cta on the left with slight rattle on the right ) Neuro: Alert and responsive, Cranial nerves intact Extremities: No Edema - Labs 07/04/18 05:12 07/04/18 05:12 Lab Results, Last 24 hours 07/03/18 07/04/18 07/04/18 13:18 05:12 05:12 WBC 19.0 H D Hgb 10.4 L D Hct 34.0 L Plt Count 219 Sodium 137 Potassium 4.8 Chloride 108 H Carbon Dioxide 23 BUN 13 Creatinine 1.00 Glucose 134 H Calcium 8.3 L Magnesium 1.8 - Imaging Chest Xray: image reviewed Consult Discharge Plan - Plan Referrals: Nelson Tolentino MD [Primary Care Provider] -
[2018-07-04] MEDS: tiZANidine 4 MG TABLET PO SCH (21:53)
[2018-07-04] MEDS: traZODone 50 MG TABLET PO SCH (21:54)
[2018-07-05] MEDS: Ketorolac 15 MG/ML VIAL IVP SCH ×5 (01:05→23:03)
[2018-07-05] MEDS: Albuterol 2.5 MG/3 ML NEBULIZER IH SCH ×4 (03:55→22:21)
[2018-07-05] MEDS: Gabapentin 300 MG CAPSULE PO SCH ×3 (07:53→20:16)
[2018-07-05] MEDS: Propranolol LA (24 HR) 80 MG CAP.SA.24H PO SCH (07:53)
[2018-07-05] MEDS: clonazePAM 1 MG TABLET PO SCH ×3 (07:53→20:17)
[2018-07-05] MEDS ORDERED: *HR* Morphine 2 MG/ML SYRINGE IVP ONE (09:37)
[2018-07-05] MEDS ORDERED: *HR* HYDROcodone/Acet 5/325 mg TABLET PO PRN (09:37)
--- NOTE | 2018-07-05 09:41 | Cardiothoracic Progress Note ---
Date of Encounter: 07/05/18 Time of Encounter: 09:40 - Assessment and plan (1) Cancer of upper lobe of right lung Current Visit: Yes Status: Acute change analgesics to po, stop ivf. reorder chest xray (2) Pulmonary histoplasmosis Current Visit: Yes Status: Chronic The assessment and plan as outlined above was discussed with the patient and/or family members who expressed understanding and agreement. All questions were answered. 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 All questions were answered. - Subjective Interval history: denies n/vf/c/s. digital operations analyst ont working very well Vital Signs, Last 4 Hours Temp Pulse Resp BP Pulse Ox 07/05/18 07:09 98.4 F 79 18 108/51 96 Oxgyen Flow Rate Oxygen Flow Rate (LPM) 2 Clinical Data, last 8 Hours Output, Chest Tube Drainage 20 Amount [Right Lateral Chest #1 ] Output, Chest Tube Drainage 20 Amount [Right Lateral Chest #1 ] Weight 07/03/18 07/04/18 07/05/18 23:59 23:59 23:59 Weight 85.4 kg 85.8 kg - Physical Examination General: Conversant, No Apparent Distress HEENT: Atraumatic, Normocephaly Cardiac: Reg Rate and Rhythm, Normal S1 and S2 Incision: No signs of infection, Open to air Chest tubes: Minimal drainage Lungs: Normal Breath Sounds Neuro: Alert and responsive, No focal deficits noted, Cranial nerves intact Extremities: No Edema - Labs 07/04/18 05:12 07/04/18 05:12 Consult Discharge Plan - Plan Referrals: Nelson Tolentino MD [Primary Care Provider] -
[2018-07-05] MEDS: *HR* OxyCODONE/APAP 5/325 TABLET PO PRN ×2 (13:00→18:50)
[2018-07-05] MEDS: traZODone 50 MG TABLET PO SCH (20:16)
[2018-07-05] MEDS: tiZANidine 4 MG TABLET PO SCH (20:16)
[2018-07-06] MEDS: *HR* OxyCODONE/APAP 5/325 TABLET PO PRN ×4 (01:06→21:45)
[2018-07-06] MEDS: Albuterol 2.5 MG/3 ML NEBULIZER IH SCH ×4 (04:02→21:32)
[2018-07-06] MEDS: Ketorolac 15 MG/ML VIAL IVP SCH ×3 (05:54→17:40)
[2018-07-06] MEDS: clonazePAM 1 MG TABLET PO SCH ×3 (08:26→20:32)
[2018-07-06] MEDS: Propranolol LA (24 HR) 80 MG CAP.SA.24H PO SCH (08:26)
[2018-07-06] MEDS: Gabapentin 300 MG CAPSULE PO SCH ×3 (08:26→20:32)
--- NOTE | 2018-07-06 10:46 | Cardiothoracic Progress Note ---
Date of Encounter: 07/06/18 Time of Encounter: 10:44 - Assessment and plan (1) Cancer of upper lobe of right lung Current Visit: Yes Status: Acute continue chest tube to suction (2) Pulmonary histoplasmosis Current Visit: Yes Status: Chronic The assessment and plan as outlined above was discussed with the patient and/or family members who expressed understanding and agreement. All questions were answered. 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 All questions were answered. (4) Mucus plugging of bronchi Current Visit: Yes Status: Acute The assessment and plan as outlined above was discussed with the patient and/or family members who expressed understanding and agreement. All questions were answered. patient needs to ambulate as her inactivity is causing this complication. ordered flutter therapy. start antibx and check labs in am. - Subjective Interval history: slightly confused after awaking from sleep. better now. patient states she hasn't ambulated since coming to the floor. Vital Signs, Last 4 Hours Temp Pulse Resp BP Pulse Ox 07/06/18 07:26 97.6 F 71 19 132/67 96 Oxgyen Flow Rate Oxygen Flow Rate (LPM) 2 Clinical Data, last 8 Hours Output, Chest Tube Drainage 100 Amount [Right Lateral Chest #1 ] Output, Chest Tube Drainage 50 Amount [Right Lateral Chest #1 ] Weight 07/04/18 07/05/18 07/06/18 23:59 23:59 23:59 Weight 85.8 kg 92.5 kg - Physical Examination General: Conversant, No Apparent Distress HEENT: Atraumatic, Normocephaly Cardiac: Reg Rate and Rhythm, Normal S1 and S2 Incision: No signs of infection, Dry/intact dressing, Open to air Chest tubes: Minimal drainage Lungs: Normal Breath Sounds Neuro: Alert and responsive, No focal deficits noted, Cranial nerves intact Abdomen: Soft, Non-tender Extremities: No Edema, Normal Pulses - Labs 07/04/18 05:12 07/04/18 05:12 Consult Discharge Plan - Plan Referrals: Nelson Tolentino MD [Primary Care Provider] -
[2018-07-06] MEDS: levoFLOXacin 750 MG TABLET PO SCH (11:15)
[2018-07-06] MEDS: traZODone 50 MG TABLET PO SCH (20:32)
[2018-07-06] MEDS: tiZANidine 4 MG TABLET PO SCH (20:32)
[2018-07-07] MEDS: Ketorolac 15 MG/ML VIAL IVP SCH ×4 (00:02→17:12)
[2018-07-07] MEDS: Albuterol 2.5 MG/3 ML NEBULIZER IH SCH ×4 (03:37→22:47)
[2018-07-07] MEDS: *HR* OxyCODONE/APAP 5/325 TABLET PO PRN ×3 (03:48→17:12)
[2018-07-07 03:58] LABS: BUN/Creatinine Ratio 21 (6-26); Blood Urea Nitrogen 14 mg/dL (8-23); Calcium 8.4 mg/dL (8.6-10.3); Carbon Dioxide 25 mEq/L (23-29); Chloride 102 mEq/L (98-107); Glucose 120 mg/dL (70-105); Osmolality,Calculated 278 (280-300); Potassium 4.7 mEq/L (3.5-5.1); Sodium 133 mEq/L (136-145); eGFR For Non-African Americans > 60 (> 60)
[2018-07-07 04:14] LABS: Basophils % 0.2 %; Eosinophils # 0.2 K/mcL (0.0-0.6); Eosinophils % 1.6 %; Hematocrit 28.7 % (35.3-44.9); Hemoglobin 9.4 g/dL (11.5-15.4); Immature Granulocytes % 0.5 % (0-4); Lymphocytes # 2.2 K/mcL (0.6-4.6); Lymphocytes % 15.2 %; Mean Corpuscular HGB Conc 32.8 g/dL (31.6-35.5); Mean Corpuscular Hemoglobin 31.4 pg (28.0-33.3); Mean Platelet Volume 11.8 fL (9.4-12.4); Monocytes # 1.7 K/mcL (0.0-1.3); Monocytes % 11.8 %; Neutrophils # 10.4 K/mcL (1.6-8.9); Platelet Count 185 K/mcL (140-400); Red Blood Count 2.99 M/mcL (3.82-4.97); Red Cell Distribution Width 13.7 % (11.5-14.5); Segmented Neutrophils % 70.7 %
[2018-07-07] MEDS: Gabapentin 300 MG CAPSULE PO SCH ×3 (10:41→20:00)
[2018-07-07] MEDS: levoFLOXacin 750 MG TABLET PO SCH (10:41)
[2018-07-07] MEDS: Propranolol LA (24 HR) 80 MG CAP.SA.24H PO SCH (10:41)
[2018-07-07] MEDS: clonazePAM 1 MG TABLET PO SCH ×3 (10:41→20:00)
[2018-07-07] MEDS: tiZANidine 4 MG TABLET PO SCH (20:00)
[2018-07-07] MEDS: traZODone 50 MG TABLET PO SCH (20:00)
[2018-07-08] MEDS: Ketorolac 15 MG/ML VIAL IVP SCH ×4 (00:22→18:09)
[2018-07-08] MEDS: Albuterol 2.5 MG/3 ML NEBULIZER IH SCH ×4 (04:21→22:01)
[2018-07-08] MEDS: Gabapentin 300 MG CAPSULE PO SCH ×3 (08:14→21:29)
[2018-07-08] MEDS: levoFLOXacin 750 MG TABLET PO SCH (08:14)
[2018-07-08] MEDS: clonazePAM 1 MG TABLET PO SCH ×3 (08:14→21:29)
[2018-07-08] MEDS: Propranolol LA (24 HR) 80 MG CAP.SA.24H PO SCH (08:16)
--- NOTE | 2018-07-08 08:27 | Cardiothoracic Progress Note ---
Date of Encounter: 07/08/18 Time of Encounter: 08:25 - Assessment and plan (1) Cancer of upper lobe of right lung Current Visit: Yes Status: Acute continue chest tube to suction (2) Pulmonary histoplasmosis Current Visit: Yes Status: Chronic The assessment and plan as outlined above was discussed with the patient and/or family members who expressed understanding and agreement. All questions were answered. 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 All questions were answered. (4) Mucus plugging of bronchi Current Visit: Yes Status: Acute The assessment and plan as outlined above was discussed with the patient and/or family members who expressed understanding and agreement. All questions were answered. patient needs to ambulate as her inactivity is causing this complication. ordered flutter therapy. start antibx and check labs in am. - Subjective Interval history: patient very upset that she is not getting help to get out of bed and ambulate despite orders from admission Vital Signs, Last 4 Hours Temp Pulse Resp BP Pulse Ox 07/08/18 08:22 96 07/08/18 07:34 97.6 F 65 16 119/56 96 07/08/18 05:09 97.9 F 65 18 122/53 97 Oxgyen Flow Rate Oxygen Flow Rate (LPM) 2 Clinical Data, last 8 Hours Output, Chest Tube Drainage 40 Amount [Right Lateral Chest #1 ] Output, Chest Tube Drainage 0 Amount [Right Lateral Chest #1 ] Weight 07/06/18 07/07/18 07/08/18 23:59 23:59 23:59 Weight 92.5 kg 92.2 kg 91 kg - Physical Examination General: Conversant, No Apparent Distress HEENT: Atraumatic, Normocephaly, Trachea midline Cardiac: Reg Rate and Rhythm, Normal S1 and S2, No Murmur Incision: No signs of infection Chest tubes: Other (decreasing serosanguinous outputs) Lungs: Other (rhonchi) Neuro: Alert and responsive, No focal deficits noted, Cranial nerves intact Abdomen: Soft, Non-tender, Other (flatus ) - Labs 07/07/18 02:49 07/07/18 02:49 Consult Discharge Plan - Plan Referrals: Nelson Tolentino MD [Primary Care Provider] -
[2018-07-08] MEDS ORDERED: Ondansetron 4 MG/2 ML VIAL IVP PRN (13:09)
[2018-07-08] MEDS: *HR* OxyCODONE/APAP 5/325 TABLET PO PRN (16:16)
[2018-07-08] MEDS: tiZANidine 4 MG TABLET PO SCH (21:29)
[2018-07-08] MEDS: traZODone 50 MG TABLET PO SCH (21:29)
[2018-07-09] MEDS: Albuterol 2.5 MG/3 ML NEBULIZER IH SCH ×6 (04:00→23:30)
[2018-07-09] MEDS: *HR* OxyCODONE/APAP 5/325 TABLET PO PRN ×3 (06:06→22:19)
[2018-07-09 10:26] LABS: BUN/Creatinine Ratio 22 (6-26); Blood Urea Nitrogen 18 mg/dL (8-23); Calcium 8.4 mg/dL (8.6-10.3); Carbon Dioxide 27 mEq/L (23-29); Chloride 103 mEq/L (98-107); Glucose 98 mg/dL (70-105); Osmolality,Calculated 282 (280-300); Potassium 4.8 mEq/L (3.5-5.1); Sodium 135 mEq/L (136-145); eGFR For Non-African Americans > 60 (> 60)
--- NOTE | 2018-07-09 10:34 | Cardiothoracic Progress Note ---
Date of Encounter: 07/09/18 Time of Encounter: 10:31 - Assessment and plan (1) Cancer of upper lobe of right lung Current Visit: Yes Status: Acute continue chest tube to suction (2) Pulmonary histoplasmosis Current Visit: Yes Status: Chronic The assessment and plan as outlined above was discussed with the patient and/or family members who expressed understanding and agreement. All questions were answered. 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 All questions were answered. (4) Mucus plugging of bronchi Current Visit: Yes Status: Acute The assessment and plan as outlined above was discussed with the patient and/or family members who expressed understanding and agreement. All questions were answered. rounded with nurse. took picture of the chest tube drainge which is thin orange NOT bright red blood. reviewed need to ambulate, oob and new resp orders for mucus plug, which may need bronchoscopy tomorrow if chest xray and patient not better with 24 hours of more aggressive resp tx and activity . - Subjective Interval history: patient cannot cough up secretions. Vital Signs, Last 4 Hours Temp Pulse Resp BP Pulse Ox 07/09/18 09:19 75 20 105/55 92 07/09/18 07:52 97.9 F 72 16 100/48 91 Oxgyen Flow Rate Oxygen Flow Rate (LPM) 3 Clinical Data, last 8 Hours Output, Chest Tube Drainage 25 Amount [Right Lateral Chest #1 ] Output, Urine Amount 500 Weight 07/07/18 07/08/18 07/09/18 23:59 23:59 23:59 Weight 92.2 kg 91 kg - Physical Examination General: Conversant, No Apparent Distress HEENT: Atraumatic Cardiac: Reg Rate and Rhythm, Normal S1 and S2 Chest tubes: Crepitus (cta on the left. rhonchi in midline improves with cough. absent on the right. ) - Labs 07/07/18 02:49 07/09/18 10:00 Lab Results, Last 24 hours 07/09/18 10:00 Sodium 135 L Potassium 4.8 Chloride 103 Carbon Dioxide 27 BUN 18 Creatinine 0.81 Glucose 98 Calcium 8.4 L - VTE Documentation of Mechanical Device: Intermittent pneumatic compression device Consult Discharge Plan - Plan Referrals: Nelson Tolentino MD [Primary Care Provider] -
[2018-07-09] MEDS ORDERED: Albuterol 2.5 MG/3 ML NEBULIZER ONE (10:36)
[2018-07-09] MEDS: Acetylcysteine 10% 2 ML INHSOL IH SCH ×4 (10:58→23:30)
[2018-07-09] MEDS: clonazePAM 1 MG TABLET PO SCH ×3 (11:09→21:13)
[2018-07-09] MEDS: Gabapentin 300 MG CAPSULE PO SCH ×3 (11:09→21:13)
[2018-07-09] MEDS: levoFLOXacin 750 MG TABLET PO SCH (11:09)
[2018-07-09] MEDS: Propranolol LA (24 HR) 80 MG CAP.SA.24H PO SCH (11:09)
[2018-07-09 11:51] LABS: Basophils # 0.1 K/mcL (0.0-0.2); Basophils % 0.3 %; Eosinophils # 0.6 K/mcL (0.0-0.6); Eosinophils % 2.4 %; Hematocrit 32.8 % (35.3-44.9); Hemoglobin 10.6 g/dL (11.5-15.4); Immature Granulocytes % 0.5 % (0-4); Lymphocytes # 2.7 K/mcL (0.6-4.6); Lymphocytes % 11.8 %; Mean Corpuscular HGB Conc 32.3 g/dL (31.6-35.5); Mean Corpuscular Hemoglobin 30.9 pg (28.0-33.3); Mean Corpuscular Volume 95.6 fL (83.0-100.0); Mean Platelet Volume 10.9 fL (9.4-12.4); Monocytes # 2.1 K/mcL (0.0-1.3); Monocytes % 8.9 %; Neutrophils # 17.5 K/mcL (1.6-8.9); Platelet Count 266 K/mcL (140-400); Red Blood Count 3.43 M/mcL (3.82-4.97); Red Cell Distribution Width 13.8 % (11.5-14.5); Segmented Neutrophils % 76.1 %
[2018-07-09] MEDS: Diphenoxylate/Atropine 1 TAB TABLET PO PRN (21:12)
[2018-07-09] MEDS: tiZANidine 4 MG TABLET PO SCH (21:12)
[2018-07-09] MEDS: traZODone 50 MG TABLET PO SCH (21:13)
[2018-07-10] MEDS: Albuterol 2.5 MG/3 ML NEBULIZER IH SCH ×6 (03:44→23:47)
[2018-07-10] MEDS: Acetylcysteine 10% 2 ML INHSOL IH SCH ×6 (03:44→23:47)
--- NOTE | 2018-07-10 08:00 | Cardiothoracic Progress Note ---
Date of Encounter: 07/10/18 Time of Encounter: 07:58 - Assessment and plan (1) Cancer of upper lobe of right lung Current Visit: Yes Status: Acute The patient has persistent volume loss in the right hemithorax after a upper lobe resection. She was treated conservatively with breathing treatments and Mucomyst; however, has not been able to clear the suspected mucous plug. Pulmonary has been consult did not for a flexible bronchoscopy and pulmonary to ilet. The assessment and plan as outlined above was discussed with the patient and/or family members who expressed understanding and agreement. All questions were answered. - Subjective Procedure(s) Performed: POD#7 S/P Right thoracotomy with upper lobe resection Interval history: The patient remained hemodynamically stable overnight. She is breathing comfortably with supplemental oxygen. Vital Signs, Last 4 Hours Temp Pulse Resp BP Pulse Ox 07/10/18 07:10 98.1 F 64 15 94/47 96 Oxgyen Flow Rate Oxygen Flow Rate (LPM) 3 Clinical Data, last 8 Hours Output, Chest Tube Drainage 80 Amount [Right Lateral Chest #1 ] Output, Chest Tube Drainage 0 Amount [Right Lateral Chest #1 ] Output, Urine Amount 900 Output, Urine Amount 0 Output, Urine Amount 0 Weight 07/08/18 07/09/18 07/10/18 23:59 23:59 23:59 Weight 91 kg 89.7 kg - Physical Examination General: Conversant, No Apparent Distress Neck: No JVD, Normal carotid pulses Cardiac: Reg Rate and Rhythm, Normal S1 and S2, No Murmur Incision: No signs of infection, Dry/intact dressing Chest tubes: Minimal drainage, Air leak Lungs: Normal Breath Sounds (Left chest), Decreased breath sounds (Right chest) Neuro: Alert and responsive, No focal deficits noted Vascular: Normal capillary refill Extremities: No Clubbing, No Cyanosis, No Edema - Labs 07/09/18 11:39 07/09/18 10:00 Lab Results, Last 24 hours 07/09/18 07/09/18 10:00 11:39 WBC 23.0 H D Hgb 10.6 L Hct 32.8 L Plt Count 266 Sodium 135 L Potassium 4.8 Chloride 103 Carbon Dioxide 27 BUN 18 Creatinine 0.81 Glucose 98 Calcium 8.4 L - Imaging Chest Xray: image reviewed (Complete atelectasis/collapse of lung in right hemithorax) - VTE Documentation of Mechanical Device: Intermittent pneumatic compression device Consult Discharge Plan - Plan Referrals: Nelson Tolentino MD [Primary Care Provider] -
--- NOTE | 2018-07-10 08:10 | Cardiothoracic Progress Note ---
Date of Encounter: 07/07/18 (forgot note) Time of Encounter: 11:00 - Assessment and plan (1) Cancer of upper lobe of right lung Current Visit: Yes Status: Acute continue chest tube to suction (2) Pulmonary histoplasmosis Current Visit: Yes Status: Chronic The assessment and plan as outlined above was discussed with the patient and/or family members who expressed understanding and agreement. All questions were answered. 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 All questions were answered. - Subjective Interval history: anxious to get out of bed . Vital Signs, Last 4 Hours Temp Pulse Resp BP Pulse Ox 07/10/18 07:10 98.1 F 64 15 94/47 96 Oxgyen Flow Rate Oxygen Flow Rate (LPM) 3 Clinical Data, last 8 Hours Output, Chest Tube Drainage 80 Amount [Right Lateral Chest #1 ] Output, Urine Amount 900 Output, Urine Amount 0 Output, Urine Amount 0 Weight 07/08/18 07/09/18 07/10/18 23:59 23:59 23:59 Weight 91 kg 89.7 kg - Physical Examination General: Conversant, No Apparent Distress HEENT: Atraumatic, Normocephaly Cardiac: Reg Rate and Rhythm, Normal S1 and S2 Incision: No signs of infection Chest tubes: Other (serosanguinous chest tube drainage) Lungs: Normal Breath Sounds Neuro: Alert and responsive, Cranial nerves intact - Labs 07/09/18 11:39 07/09/18 10:00 Lab Results, Last 24 hours 07/09/18 07/09/18 10:00 11:39 WBC 23.0 H D Hgb 10.6 L Hct 32.8 L Plt Count 266 Sodium 135 L Potassium 4.8 Chloride 103 Carbon Dioxide 27 BUN 18 Creatinine 0.81 Glucose 98 Calcium 8.4 L - VTE Documentation of Mechanical Device: Intermittent pneumatic compression device Consult Discharge Plan - Plan Referrals: Nelson Tolentino MD [Primary Care Provider] -
[2018-07-10] MEDS: Gabapentin 300 MG CAPSULE PO SCH ×3 (08:47→19:53)
[2018-07-10] MEDS: levoFLOXacin 750 MG TABLET PO SCH (08:47)
[2018-07-10] MEDS: clonazePAM 1 MG TABLET PO SCH ×3 (08:47→19:54)
[2018-07-10] MEDS: Propranolol LA (24 HR) 80 MG CAP.SA.24H PO SCH (08:48)
--- NOTE | 2018-07-10 09:20 | Anesthesia Evaluation PreOp ---
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 Other Medical History: Renal (CKD), GERD, Other (situs inversus totalis, IBS) Anesthesia History: No Prior Anesthetic Complications, Past Anesthesia (breast reduction, T &A, cristobal, knee scope, recent bronch and R upper lobectomy) Alcohol Use: rarely Drug use: none Medications and Allergies RX: Furosemide [Lasix] 40 mg PO DAILY 08/18/15 [History] RX: Magnesium Oxide [Magnesium] 400 mg PO DAILY 08/18/15 [History] RX: Pantoprazole Sodium [Protonix] 40 mg PO DAILY 08/18/15 [History] RX: Pnv with Ca,No.72/Iron,Carb/FA [ Plus Iron Tablet] 1 each PO DAILY 08/18/15 [History] RX: Potassium Chloride 10 meq PO DAILY 08/18/15 [History] RX: Sodium Chloride [Sodium Chloride Tab] 2 gm PO DAILY 08/18/15 [History] RX: Spironolactone [Aldactone] 25 mg PO DAILY 08/18/15 [History] RX: Tizanidine HCl 12 mg PO HS 08/18/15 [History] RX: Trazodone HCl 150 mg PO HS 08/18/15 [History] RX: Meclizine HCl [Verticalm] 25 mg PO DAILY PRN 01/20/18 [History] RX: Acetaminophen [Tylenol] 650 mg PO Q6HR PRN tablet 01/23/18 [Rx] Albuterol Sulfate [Albuterol Inhaler] 2 puff IH Q4H PRN 06/24/18 [History] Azelastine 0.1% Nasal [place] [Astelin] 2 spray NS BID PRN 07/03/18 [History] Cetirizine HCl [Zyrtec] 10 mg PO DAILY 07/03/18 [History] Ibuprofen [Ibu] 800 mg PO DAILY PRN 07/03/18 [History] Promethazine [Phenergan] 25 mg PO DAILY PRN 07/03/18 [History] RX: Butalbital/Aspirin/Caffeine [Lfvgieqrsu-FFO-Kvltcspy Cap] 2 cap PO DAILY PRN 07/03/18 [History] RX: Diphenoxylate/Atropine [Lomotil 2.5 mg/0.025 mg] 2 tab PO DAILY PRN 07/03/18 [History] clonazePAM [Clonazepam] 1 mg PO TID 07/03/18 [History] Propranolol HCl [Innopran Xl] 80 mg PO DAILY 07/09/18 [History] Allergy/AdvReac Type Severity Reaction Status Date / Time acetaminophen Allergy Nausea Verified 01/21/18 10:03 [From Tylenol-Codeine #3] codeine Allergy Nausea Verified 01/21/18 10:03 [From Tylenol-Codeine #3] Amoxicillin AdvReac Itching Verified 07/03/18 11:50 clavulanic acid AdvReac Nausea Verified 07/03/18 11:50 [From Augmentin] clindamycin AdvReac NAUSEA, Verified 07/03/18 11:50 VOMITING doxycycline AdvReac NAUSEA, Verified 07/03/18 11:50 DIARRHEA guaifenesin [From Mucinex] AdvReac See Verified 07/03/18 11:50 Comments hydrocodone [From Vicodin] AdvReac Itching Verified 07/03/18 11:50 Iodinated Contrast- Oral and AdvReac Rash Verified 07/03/18 11:50 IV Dye metoclopramide [From Reglan] AdvReac Itching Verified 07/03/18 11:50 nitrofurantoin AdvReac NAUSEA, Verified 07/03/18 11:50 [From Macrobid] VOMITING prednisone AdvReac SHORTNESS Verified 07/03/18 11:50 OF BREATH - Meds/Allergy Pre-op Review Medications Reviewed: Yes Allergies Reviewed: Yes Beta Blockers on Current Med List: Yes If Beta Blockers taken, Date/Time (Last Dose taken): 07/09/18 1109 Anesthesia Results - Labs 07/09/18 11:39 07/09/18 10:00 - Imaging EKG: report reviewed (SINUS BRADYCARDIA ARM LEADS REVERSED Electronically Signed On 01-23-2018 15:02:08 EDT by Dominick Laurent) Additional studies: Cardiology pre op clearance from 01/2018 for hip surgery Assessment and Plan (1) Pre-operative cardiovascular examination Current Visit: Yes Status: Acute Cardiology asked to evaluate patient prior to hip surgery for acute hip fracture. She denies cardiac symptoms and was able to do 4 mets activity prior to her fall this morning. Stress test reviewed. Medium sized, moderately severe intensity partially fixed perfusion defect involving the basal-mid anterolateral segments with worsening in the distal stress segments. While findings may represent artifact, reversible ischemia cannot be excluded. Pharmacologic stress ECG is non diagnostic for ischemia due to baseline non-specific ST and T changes. Gated EF > 70%. Perfusion imaging was equivocal. Findings likely artifact. If there is an area of concern it can be managed medically. No further testing warranted in the setting of acute hip fracture needing repair. Anymore procedures from cardiology would delay her surgery and cause potential demise. Anesthesia Exam Vital Signs/O2 Sat, Most Current Temp Pulse Resp BP Pulse Ox 98.1 F 64 15 94/47 96 07/10/18 07:10 07/10/18 07:10 07/10/18 07:10 07/10/18 07:10 07/10/18 07:10 Height: 1.73m Weight: 89kg NPO (# of Hours): >8 - HEENT Pupil (Motor): Pupils equal, EOMI Mallampati: III Teeth: Normal Oral Opening: Greater than 3 - DETONATOR ASSEMBLER LOC: Oriented DETONATOR ASSEMBLER Motor: Normal RUE, Normal LUE, Normal RLE, Normal LLE, Normal Face DETONATOR ASSEMBLER Sensory: Normal: RUE, LUE, RLE, LLE, Face - Cardiac Rhythm: Regular - Pulmonary Breath Sounds: bilateral Clear Respiratory Effort: Symmetrical Anesthesia Assess/Plan ASA Score: 3 Level of consciousness: Cooperative Anesthetic Plan: General Monitoring Plan: Standard Monitors Recovery Plan: PACU
[2018-07-10] MEDS ORDERED: *HR* FentaNYL (PF) 100 MCG/2 ML VIAL ONE (10:01)
[2018-07-10] MEDS ORDERED: *HR* Propofol 200 MG/20 ML VIAL IVP ONE (10:02)
[2018-07-10] MEDS ORDERED: *HR* Midazolam HCl 2 MG/2 ML VIAL ONE (10:02)
[2018-07-10] MEDS ORDERED: Ondansetron 4 MG/2 ML VIAL ONE (10:13)
[2018-07-10] MEDS ORDERED: Lidocaine -MPF 2% 2 ML VIAL ONE (10:13)
[2018-07-10] MEDS ORDERED: Lidocaine -MPF 4% 5 ML AMPUL ONE (10:13)
[2018-07-10] MEDS ORDERED: EPHEDrine 50 MG/ML VIAL ONE (10:28)
[2018-07-10] MEDS ORDERED: *HR* Succinylcholine 200 MG/10 ML VIAL IVP ONE (12:55)
[2018-07-10] MEDS: *HR* OxyCODONE/APAP 5/325 TABLET PO PRN ×2 (15:13→19:54)
[2018-07-10] MEDS: tiZANidine 4 MG TABLET PO SCH (19:53)
[2018-07-10] MEDS: traZODone 50 MG TABLET PO SCH (19:54)
[2018-07-11] MEDS: Acetylcysteine 10% 2 ML INHSOL IH SCH ×5 (03:46→20:41)
[2018-07-11] MEDS: Albuterol 2.5 MG/3 ML NEBULIZER IH SCH ×5 (03:46→20:41)
--- NOTE | 2018-07-11 07:22 | Cardiothoracic Progress Note ---
Date of Encounter: 07/11/18 Time of Encounter: 07:20 - Assessment and plan (1) Cancer of upper lobe of right lung Current Visit: Yes Status: Acute The patient has persistent volume loss in the right hemithorax after a upper lobe resection. She was treated conservatively with breathing treatments and Mucomyst; however, has not been able to clear the suspected mucous plug. She underwent bronchoscopy and pulmonary toilet yesterday; however, this morning's chest x-ray shows persistent volume loss in the right lung ivan. Pulmonary has been consulted for a repeat flexible bronchoscopy and pulmonary toilet. The assessment and plan as outlined above was discussed with the patient and/or family members who expressed understanding and agreement. All questions were answered. - Subjective Procedure(s) Performed: POD#8 S/P Right thoracotomy with upper lobe resection Interval history: The patient remained hemodynamically stable overnight. She is breathing comfortably with supplemental oxygen. Vital Signs, Last 4 Hours Temp Pulse Resp BP Pulse Ox 07/11/18 04:13 98.0 F 73 18 109/57 98 07/11/18 03:46 16 100 Oxgyen Flow Rate Oxygen Flow Rate (LPM) 2 Clinical Data, last 8 Hours Output, Chest Tube Drainage 70 Amount [Right Lateral Chest #1 ] Output, Chest Tube Drainage 0 Amount [Right Lateral Chest #1 ] Output, Urine Amount 0 Output, Urine Amount 400 Output, Urine Amount 0 Weight 07/09/18 07/10/18 07/11/18 23:59 23:59 23:59 Weight 89.7 kg 88.8 kg - Physical Examination General: Conversant, No Apparent Distress Neck: No JVD, Normal carotid pulses Cardiac: Reg Rate and Rhythm, Normal S1 and S2, No Murmur Incision: No signs of infection, Dry/intact dressing Chest tubes: Minimal drainage, Other (No air leak) Lungs: Normal Breath Sounds (Left chest), Decreased breath sounds (Right chest) Neuro: Alert and responsive, No focal deficits noted Vascular: Normal capillary refill Extremities: No Clubbing, No Cyanosis, No Edema - Labs 07/09/18 11:39 07/09/18 10:00 - Imaging Chest Xray: image reviewed (Persistent volume loss in the right hemithorax.) - VTE Documentation of Mechanical Device: Intermittent pneumatic compression device Consult Discharge Plan - Plan Referrals: Nelson Tolentino MD [Primary Care Provider] -
[2018-07-11] MEDS: clonazePAM 1 MG TABLET PO SCH ×3 (08:38→20:35)
[2018-07-11] MEDS: levoFLOXacin 750 MG TABLET PO SCH (08:38)
[2018-07-11] MEDS: Propranolol LA (24 HR) 80 MG CAP.SA.24H PO SCH (08:38)
[2018-07-11] MEDS: Gabapentin 300 MG CAPSULE PO SCH ×3 (08:39→20:35)
[2018-07-11] MEDS ORDERED: *HR* Succinylcholine 200 MG/10 ML VIAL IVP ONE (09:35)
[2018-07-11] MEDS ORDERED: *HR* FentaNYL (PF) 100 MCG/2 ML VIAL ONE (09:35)
[2018-07-11] MEDS ORDERED: Lidocaine -MPF 2% 2 ML VIAL ONE (09:35)
[2018-07-11] MEDS ORDERED: Lidocaine -MPF 4% 5 ML AMPUL ONE (09:35)
[2018-07-11] MEDS ORDERED: *HR* Propofol 200 MG/20 ML VIAL IVP ONE (09:35)
--- NOTE | 2018-07-11 09:48 | Anesthesia Evaluation PreOp ---
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 Other Medical History: Renal (CKD), GERD Anesthesia History: No Prior Anesthetic Complications, Past Anesthesia (breast reduction, T &A, cristobal, knee scope, recent bronch and R upper lobectomy) Alcohol Use: rarely Drug use: none Medications and Allergies Furosemide [Lasix] 40 mg PO DAILY 08/18/15 [History] Magnesium Oxide [Magnesium] 400 mg PO DAILY 08/18/15 [History] Pantoprazole Sodium [Protonix] 40 mg PO DAILY 08/18/15 [History] Pnv with Ca,No.72/Iron,Carb/FA [ Plus Iron Tablet] 1 each PO DAILY 08/18/15 [History] Potassium Chloride 10 meq PO DAILY 08/18/15 [History] Sodium Chloride [Sodium Chloride Tab] 2 gm PO DAILY 08/18/15 [History] Spironolactone [Aldactone] 25 mg PO DAILY 08/18/15 [History] Tizanidine HCl 12 mg PO HS 08/18/15 [History] Trazodone HCl 150 mg PO HS 08/18/15 [History] Meclizine HCl [Verticalm] 25 mg PO DAILY PRN 01/20/18 [History] Acetaminophen [Tylenol] 650 mg PO Q6HR PRN tablet 01/23/18 [Rx] Albuterol Sulfate [Albuterol Inhaler] 2 puff IH Q4H PRN 06/24/18 [History] Azelastine 0.1% Nasal [place] [Astelin] 2 spray NS BID PRN 07/03/18 [History] Butalbital/Aspirin/Caffeine [Ohseusbjqh-GJI-Thxytsux Cap] 2 cap PO DAILY PRN 07/03/18 [History] Cetirizine HCl [Zyrtec] 10 mg PO DAILY 07/03/18 [History] Diphenoxylate/Atropine [Lomotil 2.5 mg/0.025 mg] 2 tab PO DAILY PRN 07/03/18 [History] Ibuprofen [Ibu] 800 mg PO DAILY PRN 07/03/18 [History] Promethazine [Phenergan] 25 mg PO DAILY PRN 07/03/18 [History] clonazePAM [Clonazepam] 1 mg PO TID 07/03/18 [History] Propranolol HCl [Innopran Xl] 80 mg PO DAILY 07/09/18 [History] Allergy/AdvReac Type Severity Reaction Status Date / Time acetaminophen Allergy Nausea Verified 01/21/18 10:03 [From Tylenol-Codeine #3] codeine Allergy Nausea Verified 01/21/18 10:03 [From Tylenol-Codeine #3] Amoxicillin AdvReac Itching Verified 07/03/18 11:50 clavulanic acid AdvReac Nausea Verified 07/03/18 11:50 [From Augmentin] clindamycin AdvReac NAUSEA, Verified 07/03/18 11:50 VOMITING doxycycline AdvReac NAUSEA, Verified 07/03/18 11:50 DIARRHEA guaifenesin [From Mucinex] AdvReac See Verified 07/03/18 11:50 Comments hydrocodone [From Vicodin] AdvReac Itching Verified 07/03/18 11:50 Iodinated Contrast- Oral and AdvReac Rash Verified 07/03/18 11:50 IV Dye metoclopramide [From Reglan] AdvReac Itching Verified 07/03/18 11:50 nitrofurantoin AdvReac NAUSEA, Verified 07/03/18 11:50 [From Macrobid] VOMITING prednisone AdvReac SHORTNESS Verified 07/03/18 11:50 OF BREATH - Meds/Allergy Pre-op Review Medications Reviewed: Yes Allergies Reviewed: Yes Beta Blockers on Current Med List: Yes If Beta Blockers taken, Date/Time (Last Dose taken): 07/11/2018 at 0838 Anesthesia Results - Labs 07/09/18 11:39 07/09/18 10:00 - Imaging EKG: report reviewed (01/21/2018 SINUS BRADYCARDIA ARM LEADS REVERSED) Chest x-ray: report reviewed (07/11/2018 IMPRESSION: 1. Resolving small right pneumothorax status post right lung resection. 2. A right-sided chest tube is in place. The proximal side port is within the soft tissues and outside of the right pleural space. Consider advancement. 3. Stable small left pleural effusion.) Additional studies: Pre-operative cardiovascular examination 01/2018 for hip surgery Current Visit: Yes Status: Acute Cardiology asked to evaluate patient prior to hip surgery for acute hip fracture. She denies cardiac symptoms and was able to do 4 mets activity prior to her fall this morning. Stress test reviewed. Medium sized, moderately severe intensity partially fixed perfusion defect involving the basal-mid anterolateral segments with worsening in the distal stress segments. While findings may represent artifact, reversible ischemia cannot be excluded. Pharmacologic stress ECG is non diagnostic for ischemia due to baseline non-specific ST and T changes. Gated EF > 70%. Perfusion imaging was equivocal. Findings likely artifact. If there is an area of concern it can be managed medically. No further testing warranted in the setting of acute hip fracture needing rep air. Anymore procedures from cardiology would delay her surgery and cause potential demise. 01/18/2018 Stress Impression: Medium sized, moderately severe intensity partially fixed perfusion defect involving the basal-mid anterolateral segments with worsening in the distal stress segments. While findings may represent artifact, reversible ischemia cannot be excluded. Pharmacologic stress ECG is non diagnostic for ischemia due to baseline non-specific ST and T changes. Gated EF > 70%. Findings communicated to ordering provider. Anesthesia Exam Vital Signs/O2 Sat/Glucose, Most Recent Temp Pulse Resp BP Pulse Ox 97.9 F 75 18 126/51 96 07/11/18 07:00 07/11/18 07:00 07/11/18 07:39 07/11/18 07:00 07/11/18 07:39 Blood Glucose* 131 Height: 5'8''/1.73m Weight: 195 lbs/88.8.kg NPO (# of Hours): 8 Pain Scale: 0 Pain Scale Used: Numeric (1 - 10) - HEENT Pupil (Motor): EOMI Mallampati: III Teeth: Normal Oral Opening: Greater than 3 - YIELD ENGINEER LOC: Oriented YIELD ENGINEER Motor: Normal RUE, Normal LUE, Normal RLE, Normal LLE, Normal Face YIELD ENGINEER Sensory: Normal: RUE, LUE, RLE, LLE, Face - Cardiac Rhythm: Regular Murmur: Systolic - Pulmonary Breath Sounds: bilateral Clear (decreased BS right) Respiratory Effort: Symmetrical Anesthesia Assess/Plan ASA Score: 3 Level of consciousness: Cooperative, Oriented, Tranquil Anesthetic Plan: General Monitoring Plan: Standard Monitors Recovery Plan: PACU
[2018-07-11] MEDS ORDERED: Ondansetron 4 MG/2 ML VIAL ONE (10:11)
[2018-07-11] MEDS ORDERED: *HR* PHENYLEPHRINE 1,000 MCG/10 ML SYRINGE IVP ONE (10:13)
--- NOTE | 2018-07-11 11:35 | Pulmonology Consult Note ---
Addendum entered and electronically signed by Guerda Ascencio 07/13/18 07:03: Original Note: Date of Encounter: 07/11/18 Time of Encounter: 08:00 Assessment and Plan (1) Mucus plugging of bronchi Current Visit: Yes Status: Acute Patient has mucus plugging of the left lower lobe bronchus with thick mucopurule nt secretion we will put her on Mucomyst see how she tolerates to continue with bronchopulmonary hygiene. A complicated with respiratory therapist. To continue use of incentive spirometry the importance of this and I also counseled the patient that this might be a recurrent problem or if the pneumonia is properly treated this left lower lobe collapse might not recur. 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 Little but bronchomalacia is also contributing to his current problem. Patient has this mucopurulent secretions highly concerned for pneumonia which is not properly treated. Microbiology came positive for MRSA pneumonia, sick call me and I agree to start vancomycin. ID was consulted. The bronchoscopy from today the BAL is pending. 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 Patient denies any active abdominal symptoms denies any active neurological symptoms. Pulmonary was consult for the left lower lobe collapse with possible mucus plugging for bronchoscopy. Past Med Surg Social Fam HX - Past Medical History Medical history: arthritis, GERD, hypertension Additional medical history: IBS, MRSA, lung nodule, Psychiatric history: anxiety, depression - Past Surgical History Surgical History: cholecystectomy, other Additional surgical history: breast reduction 1980s, tonsillectomy, left hip - Social History Smoking Status: Current every day smoker Packs per day: 1/2 Smokeless Tobacco Status: No Alcohol use: rarely Drug use: none - Family History Father Living Status: Hx Family Cardiac Disorders: Yes (DC) Hx Family Respiratory Disorders: Yes (COPD) Mother Living Status: Still Living Hx Family Cardiac Disorders: Yes (hypertension) Medications and Allergies RX: Furosemide [Lasix] 40 mg PO DAILY 08/18/15 [History] RX: Magnesium Oxide [Magnesium] 400 mg PO DAILY 08/18/15 [History] RX: Pantoprazole Sodium [Protonix] 40 mg PO DAILY 08/18/15 [History] RX: Pnv with Ca,No.72/Iron,Carb/FA [ Plus Iron Tablet] 1 each PO DAILY 08/18/15 [History] RX: Potassium Chloride 10 meq PO DAILY 08/18/15 [History] RX: Sodium Chloride [Sodium Chloride Tab] 2 gm PO DAILY 08/18/15 [History] RX: Spironolactone [Aldactone] 25 mg PO DAILY 08/18/15 [History] RX: Tizanidine HCl 12 mg PO HS 08/18/15 [History] RX: Trazodone HCl 150 mg PO HS 08/18/15 [History] RX: Meclizine HCl [Verticalm] 25 mg PO DAILY PRN 01/20/18 [History] RX: Acetaminophen [Tylenol] 650 mg PO Q6HR PRN tablet 01/23/18 [Rx] Albuterol Sulfate [Albuterol Inhaler] 2 puff IH Q4H PRN 06/24/18 [History] Azelastine 0.1% Nasal [place] [Astelin] 2 spray NS BID PRN 07/03/18 [History] Cetirizine HCl [Zyrtec] 10 mg PO DAILY 07/03/18 [History] Ibuprofen [Ibu] 800 mg PO DAILY PRN 07/03/18 [History] Promethazine [Phenergan] 25 mg PO DAILY PRN 07/03/18 [History] RX: Butalbital/Aspirin/Caffeine [Bszlblygoc-IXO-Vrjhulai Cap] 2 cap PO DAILY PRN 07/03/18 [History] RX: Diphenoxylate/Atropine [Lomotil 2.5 mg/0.025 mg] 2 tab PO DAILY PRN 07/03/18 [History] clonazePAM [Clonazepam] 1 mg PO TID 07/03/18 [History] Propranolol HCl [Innopran Xl] 80 mg PO DAILY 07/09/18 [History] Allergy/AdvReac Type Severity Reaction Status Date / Time acetaminophen Allergy Nausea Verified 01/21/18 10:03 [From Tylenol-Codeine #3] codeine Allergy Nausea Verified 01/21/18 10:03 [From Tylenol-Codeine #3] Amoxicillin AdvReac Itching Verified 07/03/18 11:50 clavulanic acid AdvReac Nausea Verified 07/03/18 11:50 [From Augmentin] clindamycin AdvReac NAUSEA, Verified 07/03/18 11:50 VOMITING doxycycline AdvReac NAUSEA, Verified 07/03/18 11:50 DIARRHEA guaifenesin [From Mucinex] AdvReac See Verified 07/03/18 11:50 Comments hydrocodone [From Vicodin] AdvReac Itching Verified 07/03/18 11:50 Iodinated Contrast- Oral and AdvReac Rash Verified 07/03/18 11:50 IV Dye metoclopramide [From Reglan] AdvReac Itching Verified 07/03/18 11:50 nitrofurantoin AdvReac NAUSEA, Verified 07/03/18 11:50 [From Macrobid] VOMITING prednisone AdvReac SHORTNESS Verified 07/03/18 11:50 OF BREATH All Systems: The remainder of the systems were reviewed and are negative Physical Examination Vital Signs: Vital Signs, Last 4 Hours Temp Pulse Resp BP Pulse Ox 07/11/18 11:12 97.9 F 77 14 110/59 100 07/11/18 11:02 97.9 F 78 13 120/64 100 07/11/18 10:52 76 25 104/67 100 07/11/18 10:42 78 20 106/67 98 07/11/18 10:32 97.3 F L 86 20 129/94 94 07/11/18 09:51 75 18 141/66 100 07/11/18 07:39 18 96 Auscultation: right: diminished breath sounds (left lung because of situs inversus ) Results - Laboratory Findings CBC and BMP: 07/11/18 12:57 07/09/18 10:00 Abnormal lab findings: Abnormal lab results WBC 23.0 K/mcL (4.3-11.1) H D 07/09/18 11:39 RBC 3.43 M/mcL (3.82-4.97) L 07/09/18 11:39 Hgb 10.6 g/dL (11.5-15.4) L 07/09/18 11:39 Hct 32.8 % (35.3-44.9) L 07/09/18 11:39 Neutrophils # 17.5 K/mcL (1.6-8.9) H 07/09/18 11:39 Monocytes # 2.1 K/mcL (0.0-1.3) H 07/09/18 11:39 Sodium 135 mEq/L (136-145) L 07/09/18 10:00 POC Glucose 101 mg/dL (70-99) H 07/09/18 09:35 Calcium 8.4 mg/dL (8.6-10.3) L 07/09/18 10:00 - Microbiology Findings Microbiology Findings: Microbiology, Last 48 Hours 07/10/18 11:04 Respiratory Culture - Preliminary Bronchial Washings - Clinical Findings Intake & Output: Intake & Output 07/10/18 07/11/18 07/11/18 23:59 07:59 15:59 Intake Total 0 / 0 60 / 60 Output Total 712 / 712 490 / 490 120 / 120 Balance -712 / -712 -430 / -430 -120 / -120 Weight 88.8 kg Consult Discharge Plan - Plan Referrals: Nelson Tolentino MD [Primary Care Provider] -
[2018-07-11] MEDS ORDERED: clonazePAM 1 MG TABLET PO ONE (11:36)
[2018-07-11] MEDS: *HR* OxyCODONE/APAP 5/325 TABLET PO PRN ×2 (11:45→20:34)
--- NOTE | 2018-07-11 12:05 | Anesthesia Evaluation Post Op ---
Date of Encounter: 07/11/18 Time of Encounter: 12:05 - Vital Signs Vital Signs: Vital Signs/O2 Sat, Most Current Temp Pulse Resp BP Pulse Ox 97.9 F 77 16 119/51 99 07/11/18 11:12 07/11/18 11:43 07/11/18 11:43 07/11/18 11:43 07/11/18 11:43 - Lungs Lungs: Clear Ascult./Percussion - Airway Airway: Non-obstructed - Cardiovascular Regular Rate - Mental Status Mental Status: Alert & Oriented, Answers Appropriately - Pain Pain Scale: 0 Pain Scale used: Numeric (1 - 10) - Nausea Vomiting Nausea Vomiting: Not Present - Hydration Hydration: NPO - Discharge PostOp Status: Transfer Patient to floor
[2018-07-11 13:29] LABS: Basophils # 0.1 K/mcL (0.0-0.2); Basophils % 0.3 %; Eosinophils # 0.5 K/mcL (0.0-0.6); Eosinophils % 3.2 %; Hematocrit 27.4 % (35.3-44.9); Hemoglobin 9.1 g/dL (11.5-15.4); Immature Granulocytes % 1.1 % (0-4); Lymphocytes # 2.7 K/mcL (0.6-4.6); Mean Corpuscular HGB Conc 33.2 g/dL (31.6-35.5); Mean Corpuscular Hemoglobin 30.4 pg (28.0-33.3); Mean Corpuscular Volume 91.6 fL (83.0-100.0); Mean Platelet Volume 11.6 fL (9.4-12.4); Monocytes # 1.4 K/mcL (0.0-1.3); Monocytes % 8.9 %; Neutrophils # 10.9 K/mcL (1.6-8.9); Platelet Count 225 K/mcL (140-400); Red Blood Count 2.99 M/mcL (3.82-4.97); Red Cell Distribution Width 13.4 % (11.5-14.5); Segmented Neutrophils % 69.5 %
[2018-07-11] MEDS: Ketorolac 15 MG/ML VIAL IVP PRN (15:06)
[2018-07-11 16:21] LABS: Appearance of Body Fluid Hazy (Clear); Volume of Body Fluid 10 mL
--- NOTE | 2018-07-11 16:56 | Infectious Disease Consult ---
Date of Encounter: 07/11/18 Time of Encounter: 16:41 Assessment and Plan (1) MRSA pneumonia Status: Acute Assessment and plan: Bronchoscopy 07/10/2018: Left lung with copious mucopurulent thick secretions were found in the left lower lobe. They were partially obstructing the left main stem. Bronchial washing culture positive for staph aureus (likely MRSA) Patient was started on vancomycin Agree with current antibiotic regimen for now Once cultures finalize and susceptibility is back we will make further antibiotic recommendations Duration of treatment 2-3 weeks Goal vancomycin trough around 15 Monitor labs and for drug toxicity Daily CBC and BMP Qualifiers: Laterality: left Lung location: lower lobe of lung Qualified Code(s): J15.212 - Pneumonia due to Methicillin resistant Staphylococcus aureus (2) Mucus plugging of bronchi Status: Acute (3) Pulmonary histoplasmosis Status: Chronic Assessment and plan: Patient had a cavitary lung lesion in 2002; concern for malignancy status post surgical removal of the lesion. Patient tells me it was histoplasmosis. No further treatment was given. pathology 07/03/18: Several lymph nodes contain granulomas, some of which are necrotizing and contain yeast forms consistent with Histoplasma. The cl assification as squamous cell carcinoma is supported by immunohistochemistry: will start treatment with itraconazole once clinically stable and okay with CTS duration of treatment for itraconazole probably 1 year. will check fungitell and histo antigen (4) Cancer of upper lobe of right lung Status: Acute (5) Situs inversus totalis Status: Chronic (6) Antibiotic-induced allergic rash Status: Acute Assessment and plan: Augmentin: She stated that she had severe nausea and vomiting with no true allergy Infectious Disease HPI - Data of Consult Patient: new to practice Consult date: 07/11/18 Requesting Physician: Geo Martino MD Primary Care Provider: Nelson Tolentino MD - Consult Narrative Reason for consult: "positive MRSA culture" History of present illness: Ms. Mcfarland is a 63 year old female Patient is a 63-year-old woman who presented to [facility] on 07/02/2018 for surgical intervention by cardiothoracic surgery, we are consult dated on 07/11/2018 for positive MRSA culture. Patient is a 63-year-old woman with past medical history mentioned below including arthritis, GERD, hypertension, IBS, IgG deficiency who apparently had a CT chest on 04/23/2018 revealed an enlarging 2.7 cm spiculated right upper lobe pulmonary nodule concerning for malignancy. Status post lung biopsy 06/17/2018 positive for non-small cell carcinoma consistent with one cell carcinoma. Patient was evaluated by hematology/oncology and the plan was to do surgical intervention and maybe radiotherapy. Since admission, the only sepsis criteria she had intermittent tachypnea and leukocytosis on admission with normal differential no bands that has been persistent. Patient underwent bronchoscopy, right thoracotomy upper lobectomy, pneumolysis 30 min, wedge resection x 2 lower lobe, lymph node dissection by Dr. Martino on 07/03/2018. Patient apparently has been having persistent volume loss in the right hemithorax after the upper lobe resection. She is also having mucous plugs. Patient underwent a bronchoscopy and cultures are growing staph aureus presumably MRSA on 07/10/2018. Patient was started on empiric vancomycin we were asked to evaluate the patient's make further recommendations. Currently patient laying in bed. Appears consult. Denies any headache. No URI symptoms. No chest pain. Tells me she is breathing okay. Denies any nausea or vomiting. No diarrhea. No urinary symptoms. CC: Geo Martino MD Past Med Surg Social Fam HX - Past Medical History Medical history: arthritis, GERD, hypertension Additional medical history: IBS, MRSA, lung nodule, Psychiatric history: anxiety, depression - Past Surgical History Surgical History: cholecystectomy, other Additional surgical history: breast reduction 1980s, tonsillectomy, left hip - Social History Smoking Status: Current every day smoker Packs per day: 1/2 Smokeless Tobacco Status: No Alcohol use: rarely Drug use: none - Family History Father Living Status: Hx Family Cardiac Disorders: Yes ([place]) Hx Family Respiratory Disorders: Yes (COPD) Mother Living Status: Still Living Hx Family Cardiac Disorders: Yes (hypertension) Infectious Disease-CN:Meds RX: Furosemide [Lasix] 40 mg PO DAILY 08/18/15 [History] RX: Magnesium Oxide [Magnesium] 400 mg PO DAILY 08/18/15 [History] RX: Pantoprazole Sodium [Protonix] 40 mg PO DAILY 08/18/15 [History] RX: Pnv with Ca,No.72/Iron,Carb/FA [ Plus Iron Tablet] 1 each PO DAILY 08/18/15 [History] RX: Potassium Chloride 10 meq PO DAILY 08/18/15 [History] RX: Sodium Chloride [Sodium Chloride Tab] 2 gm PO DAILY 08/18/15 [History] RX: Spironolactone [Aldactone] 25 mg PO DAILY 08/18/15 [History] RX: Tizanidine HCl 12 mg PO HS 08/18/15 [History] RX: Trazodone HCl 150 mg PO HS 08/18/15 [History] RX: Meclizine HCl [Verticalm] 25 mg PO DAILY PRN 01/20/18 [History] RX: Acetaminophen [Tylenol] 650 mg PO Q6HR PRN tablet 01/23/18 [Rx] Albuterol Sulfate [Albuterol Inhaler] 2 puff IH Q4H PRN 06/24/18 [History] Azelastine 0.1% Nasal [place] [Astelin] 2 spray NS BID PRN 07/03/18 [History] Cetirizine HCl [Zyrtec] 10 mg PO DAILY 07/03/18 [History] Ibuprofen [Ibu] 800 mg PO DAILY PRN 07/03/18 [History] Promethazine [Phenergan] 25 mg PO DAILY PRN 07/03/18 [History] RX: Butalbital/Aspirin/Caffeine [Ngpnnjnmmd-FWN-Xgipmmsh Cap] 2 cap PO DAILY PRN 07/03/18 [History] RX: Diphenoxylate/Atropine [Lomotil 2.5 mg/0.025 mg] 2 tab PO DAILY PRN 07/03/18 [History] clonazePAM [Clonazepam] 1 mg PO TID 07/03/18 [History] Propranolol HCl [Innopran Xl] 80 mg PO DAILY 07/09/18 [History] Allergy/AdvReac Type Severity Reaction Status Date / Time acetaminophen Allergy Nausea Verified 01/21/18 10:03 [From Tylenol-Codeine #3] codeine Allergy Nausea Verified 01/21/18 10:03 [From Tylenol-Codeine #3] Amoxicillin AdvReac Itching Verified 07/03/18 11:50 clavulanic acid AdvReac Nausea Verified 07/03/18 11:50 [From Augmentin] clindamycin AdvReac NAUSEA, Verified 07/03/18 11:50 VOMITING doxycycline AdvReac NAUSEA, Verified 07/03/18 11:50 DIARRHEA guaifenesin [From Mucinex] AdvReac See Verified 07/03/18 11:50 Comments hydrocodone [From Vicodin] AdvReac Itching Verified 07/03/18 11:50 Iodinated Contrast- Oral and AdvReac Rash Verified 07/03/18 11:50 IV Dye metoclopramide [From Reglan] AdvReac Itching Verified 07/03/18 11:50 nitrofurantoin AdvReac NAUSEA, Verified 07/03/18 11:50 [From Macrobid] VOMITING prednisone AdvReac SHORTNESS Verified 07/03/18 11:50 OF BREATH Review of systems: The remainder of the systems were reviewed and are negative Exam - Constitutional Vitals: Temp Pulse Resp BP Pulse Ox 97.9 F 80 18 119/54 98 07/11/18 11:12 07/11/18 16:26 07/11/18 16:26 07/11/18 16:26 07/11/18 16:26 General appearance: cooperative, no febrile - Head Head exam: Present: atraumatic, normocephalic - Eye Eye exam: Present: EOMI, PERRL, sclera anicteric - ENT ENT exam: Present: mucous membranes dry, normal exam - Neck Neck exam: Present: full ROM. Absent: lymphadenopathy, meningismus - Respiratory Additional comments: chest expanding symmetrically. No wheezing. diffuse ronchi. diminished breath sounds at the bases - Cardiovascular Cardiovascular exam: Present: RRR, +S1, +S2 Additional comments: chest tube right lung with sanguinous drainage - GI/Abdominal GI/Abdominal exam: Present: normal bowel sounds, soft. Absent: tenderness - Extremities Exam Extremities exam: Present: full ROM. Absent: joint swelling - Neurological Exam Neurological exam: Present: alert, oriented X3 - Psychiatric Psychiatric exam: Present: normal affect, normal mood - Skin Skin exam: Present: normal color. Absent: rash Infectious Disease CN: Results - Labs CBC & Chem 7: 07/11/18 12:57 07/09/18 10:00 Cultures: Cultures 07/10/18 11:04 Respiratory Culture - Preliminary Bronchial Washings Staphylococcus aureus Serology: Serology 07/11/18 Range/Units 10:20 Fluid Source left lower lobe lung Fluid Volume 10 mL Fluid Appearance Hazy A (Clear) Fluid RBC TNP Fld Tot Nucleated Cell TNP Fluid Seg Neutrophil % 66.0 % Fld Band Neutrophil % Test Not Performed Fluid Lymphocytes % 6.0 % Fluid Monocytes % Test Not Performed Fluid Eosinophils % Test Not Performed Fluid Basophils % Test Not Performed Fluid Other Cells % 28.0 % - VTE Documentation of Mechanical Device: Intermittent pneumatic compression device Consult Discharge Plan - Plan Referrals: Nelson Tolentino MD [Primary Care Provider] -
[2018-07-11] MEDS: traZODone 50 MG TABLET PO SCH (20:34)
[2018-07-11] MEDS: tiZANidine 4 MG TABLET PO SCH (20:34)
[2018-07-11] MEDS: Diphenoxylate/Atropine 1 TAB TABLET PO PRN (20:42)
[2018-07-12] MEDS: Acetylcysteine 10% 2 ML INHSOL IH SCH ×6 (00:31→20:20)
[2018-07-12] MEDS: Albuterol 2.5 MG/3 ML NEBULIZER IH SCH ×6 (00:31→20:20)
[2018-07-12] MEDS: Ketorolac 15 MG/ML VIAL IVP PRN ×2 (05:01→15:31)
--- NOTE | 2018-07-12 07:21 | Pulmonology Progress Note ---
Date of Encounter: 07/12/18 Time of Encounter: 08:00 Assessment and Plan (1) Mucus plugging of bronchi Current Visit: Yes Status: Acute Left lower lobe mucous plugging of bronchus support her bronchoscopy yesterday the right mainstem and Bronchus intermedius . Continue N-acetylcysteine bronchopulmonary hygiene, incentive spirometry. (2) MRSA pneumonia Current Visit: Yes Status: Acute Patient is MRSA pneumonia to continue vancomycin at least 2-3 weeks according to clinical picture. Infectious disease following. 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 follow-up with oncology as outpatient. Qualifiers: Laterality: left Lung location: upper lobe of lung Qualified Code(s): C34.12 - Malignant neoplasm of upper lobe, left bronchus or lung Subjective Principal diagnosis: Squamous cell Ca of lung now with mucus plugging Interval history: Patient is doing well today no symptoms like cough or sputum production denies any chest pain or back pain is under control today denies any abdominal symptoms denies any focal neurological symptoms. Objective PUL Vital signs: Last Vital Signs Temp 98.0 F 07/12/18 04:50 Pulse 87 07/12/18 04:50 Resp 18 07/12/18 05:01 BP 119/61 07/12/18 04:50 Pulse Ox 97 07/12/18 05:01 Auscultation: right: diminished breath sounds Results - Laboratory Findings CBC and BMP: 07/11/18 12:57 07/09/18 10:00 Abnormal lab findings: Abnormal lab results WBC 15.7 K/mcL (4.3-11.1) H 07/11/18 12:57 RBC 2.99 M/mcL (3.82-4.97) L 07/11/18 12:57 Hgb 9.1 g/dL (11.5-15.4) L D 07/11/18 12:57 Hct 27.4 % (35.3-44.9) L 07/11/18 12:57 Neutrophils # 10.9 K/mcL (1.6-8.9) H 07/11/18 12:57 Monocytes # 1.4 K/mcL (0.0-1.3) H 07/11/18 12:57 Sodium 135 mEq/L (136-145) L 07/09/18 10:00 POC Glucose 101 mg/dL (70-99) H 07/09/18 09:35 Calcium 8.4 mg/dL (8.6-10.3) L 07/09/18 10:00 Fluid Appearance Hazy (Clear) A 07/11/18 10:20 - Microbiology Findings Microbiology Findings: Microbiology, Last 48 Hours 07/10/18 11:04 Respiratory Culture - Preliminary Bronchial Washings Staphylococcus aureus - Clinical Findings Intake & Output: Intake & Output 07/11/18 07/11/18 07/12/18 15:59 23:59 07:59 Intake Total 250 / 250 0 / 0 Output Total 180 / 180 170 / 170 0 / 0 Balance -180 / -180 80 / 80 0 / 0 Weight 88.4 kg - VTE Documentation of Mechanical Device: Intermittent pneumatic compression device Consult Discharge Plan - Plan Referrals: Nelson Tolentino MD [Primary Care Provider] -
--- NOTE | 2018-07-12 07:21 | Cardiothoracic Progress Note ---
Date of Encounter: 07/12/18 Time of Encounter: 07:19 - Assessment and plan (1) Cancer of upper lobe of right lung Current Visit: Yes Status: Acute The patient has improved aeration in the right lung ivan. She should continue with aggressive pulmonary toilet. The assessment and plan as outlined above was discussed with the patient and/or family members who expressed understanding and agreement. All questions were answered. - Subjective Procedure(s) Performed: POD#9 S/P Right thoracotomy with upper lobe resection Interval history: The patient remained hemodynamically stable overnight. She is breathing comfortably with supplemental oxygen. Vital Signs, Last 4 Hours Temp Pulse Resp BP Pulse Ox 07/12/18 05:01 18 97 07/12/18 04:50 98.0 F 87 16 119/61 99 Oxgyen Flow Rate Oxygen Flow Rate (LPM) 3 Clinical Data, last 8 Hours Output, Chest Tube Drainage 0 Amount [Right Lateral Chest #1 ] Output, Chest Tube Drainage 0 Amount [Right Lateral Chest #1 ] Output, Urine Amount 0 Output, Urine Amount 0 Weight 07/10/18 07/11/18 07/12/18 23:59 23:59 23:59 Weight 89.7 kg 88.8 kg 88.4 kg - Physical Examination General: Conversant, No Apparent Distress Neck: No JVD, Normal carotid pulses Cardiac: Reg Rate and Rhythm, Normal S1 and S2, No Murmur Incision: No signs of infection, Dry/intact dressing Chest tubes: Minimal drainage, Other (No air leak) Lungs: Other (Improved air movement and right lung ivan) Neuro: Alert and responsive, No focal deficits noted Vascular: Normal capillary refill Extremities: No Clubbing, No Cyanosis, No Edema - Labs 07/11/18 12:57 07/09/18 10:00 Lab Results, Last 24 hours 07/11/18 12:57 WBC 15.7 H Hgb 9.1 L D Hct 27.4 L Plt Count 225 - Imaging Chest Xray: image reviewed (No pneumothorax. Improved aeration and right lung ivan.) - VTE Documentation of Mechanical Device: Intermittent pneumatic compression device Consult Discharge Plan - Plan Referrals: Nelson Tolentino MD [Primary Care Provider] -
[2018-07-12] MEDS: Gabapentin 300 MG CAPSULE PO SCH ×3 (08:27→20:03)
[2018-07-12] MEDS: Propranolol LA (24 HR) 80 MG CAP.SA.24H PO SCH (08:28)
[2018-07-12] MEDS: *HR* OxyCODONE/APAP 5/325 TABLET PO PRN ×2 (08:28→14:28)
[2018-07-12] MEDS: clonazePAM 1 MG TABLET PO SCH ×3 (08:28→20:04)
--- NOTE | 2018-07-12 10:32 | Infectious Disease Progress No ---
Date of Encounter: 07/12/18 Time of Encounter: 10:30 - Assessment and Plan (1) MRSA pneumonia Current Visit: Yes Status: Acute Chest x-ray 07/10/18 showed marked volume loss in the right hemithorax and mediastinal shift towards the right. Bronchoscopy performed 07/10/18 that revealed left lung with copious mucopurulent thick secretions in the left lower lobe that were partially obstructing the left main stem. BAL cultures are positive for MRSA. Pulmonology continues to follow. Currently on IV vancomycin. Recommendations: Daily CBC and BMP. Continue vancomycin IV. Pharmacy to dose. Goal trough proximally 15. Duration of treatment depends on the clinical picture, but likely 2-3 weeks. Can consider switching to oral Clindamycin when ready for discharge to complete course of treatment. Monitor renal function and for drug toxicity and dose adjust antibiotics. Qualifiers: Laterality: left Lung location: lower lobe of lung Qualified Code(s): J15.212 - Pneumonia due to Methicillin resistant Staphylococcus aureus (2) Mucus plugging of bronchi Current Visit: Yes Status: Acute Status post bronchoscopy 07/10/18. Pulmonology continues to follow. Likely multifactorial: Recent surgery plus lung cancer plus bronchomalacia. Aggressive pulmonary toileting per pulmonology's recommendations. (3) Pulmonary histoplasmosis Current Visit: Yes Status: Chronic Patient had a cavitary lung lesion in 2002; concern for malignancy status post surgical removal of the lesion. Patient tells me it was histoplasmosis. No further treatment was given. Pathology 07/03/18: Several lymph nodes contain granulomas, some of which are necrotizing and contain yeast forms consistent with Histoplasma. The classification as squamous cell carcinoma is supported by immunohistochemistry. Will start treatment with itraconazole once clinically stable and okay with CTS. Duration of treatment for itraconazole probably 1 year. 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 Augmentin: Nausea. Clindamycin: Nausea/vomiting. Doxycycline: Nausea/diarrhea. Macrobid: Nausea/vomiting. (6) Cancer of upper lobe of right lung Current Visit: Yes Status: Acute - Subjective Interval history: Chief complaint: MRSA PNA Patient seen and examined. No acute events noted overnight. Patient complains of mild pain at the chest tube insertion and surgical site. Denies fevers, chills, or rigors. Denies chest pain, shortness of breath, or cough. Denies nausea, vomiting, diarrhea, or constipation. She denies abdominal pain or urinary complaints. Reports poor by mouth intake because she does not like the food here. Infect Dis PN-Objective Data - Labs CBC & Chem 7: 07/11/18 12:57 07/09/18 10:00 Labs: Laboratory Results - last 24 hr 07/11/18 07/11/18 10:20 12:57 WBC 15.7 H RBC 2.99 L Hgb 9.1 L D Hct 27.4 L MCV 91.6 MCH 30.4 MCHC 33.2 RDW 13.4 Plt Count 225 MPV 11.6 Immature Gran % 1.1 Seg Neutrophils % 69.5 Lymphocytes % 17.0 Monocytes % 8.9 Eosinophils % 3.2 Basophils % 0.3 Neutrophils # 10.9 H Lymphocytes # 2.7 Monocytes # 1.4 H Eosinophils # 0.5 Basophils # 0.1 Fluid Source left lower lobe lung Fluid Volume 10 Fluid Appearance Hazy A Fluid RBC TNP Fld Tot Nucleated Cell TNP Fluid Seg Neutrophil % 66.0 Fld Band Neutrophil % Test Not Performed Fluid Lymphocytes % 6.0 Fluid Monocytes % Test Not Performed Fluid Eosinophils % Test Not Performed Fluid Basophils % Test Not Performed Fluid Other Cells % 28.0 Cultures: Cultures 07/10/18 11:04 Respiratory Culture - Final Bronchial Washings Methicillin Resistant S.aureus Serology 07/11/18 Range/Units 10:20 Fluid Source left lower lobe lung Fluid Volume 10 mL Fluid Appearance Hazy A (Clear) Fluid RBC TNP Fld Tot Nucleated Cell TNP Fluid Seg Neutrophil % 66.0 % Fld Band Neutrophil % Test Not Performed Fluid Lymphocytes % 6.0 % Fluid Monocytes % Test Not Performed Fluid Eosinophils % Test Not Performed Fluid Basophils % Test Not Performed Fluid Other Cells % 28.0 % - Impressions Impressions Chest X-Ray 07/12/18 04:00 IMPRESSION: Redemonstration of right hemithorax postsurgical changes. Small right pleural effusion has decreased in size since the prior examination. Right-sided chest tube is in unchanged position. Increasing lucency surrounding the distal end of the chest tube may reflect a small, anterior pneumothorax. Trace left pleural effusion and mild left basilar atelectasis. D/ 07/12/2018 08:05:00 Juliana Pastor MD / [email or web address] Interpreting Provider: Juliana Pastor MD Exam - Constitutional Vitals: Temp Pulse Resp BP Pulse Ox 98.0 F 71 16 114/62 98 07/12/18 04:50 07/12/18 07:44 07/12/18 07:44 07/12/18 07:44 07/12/18 07:44 General appearance: cooperative, no acute distress, obese - Head Head exam: Present: atraumatic, normal inspection, normocephalic - Eye Eye exam: Present: EOMI, normal appearance, PERRL Pupils: Present: normal accommodation - ENT ENT exam: Present: mucous membranes moist - Neck Neck exam: Present: normal inspection - Respiratory Respiratory exam: Present: decreased breath sounds, CTAB. Absent: rales, respiratory distress, rhonchi, wheezes - Cardiovascular Cardiovascular exam: Present: RRR, +S1, +S2 - GI/Abdominal GI/Abdominal exam: Present: distended (obese), normal bowel sounds, soft. Absent: tenderness - Extremities Exam Extremities exam: Present: normal inspection. Absent: joint swelling, pedal edema, tenderness - Back Exam Back exam: Absent: normal inspection (Surgical site noted to the right posterior thorax with chest tube in place with small amount of serosanguinous drainage noted. Mild tenderness noted. No crepitus.) - Neurological Exam Neurological exam: Present: alert, oriented X3, no focal deficits - Psychiatric Psychiatric exam: Present: normal affect, normal mood - Skin Skin exam: Present: dry, intact, normal color, warm - VTE Documentation of Mechanical Device: Intermittent pneumatic compression device Consult Discharge Plan - Plan Referrals: Nelson Tolentino MD [Primary Care Provider] - - Attending Attestation I have personally performed a face to face evaluation on this patient. I have reviewed and agree with the care plan. History and Exam by me shows: Patient seen and examined. Agree with above findings and physical exam and review of systems Currently patient is on vancomycin Discussed with Dr. 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
[2018-07-12] MEDS: *HR* OxyCODONE/APAP 10/325 TABLET PO PRN ×2 (18:06→22:59)
[2018-07-12] MEDS: tiZANidine 4 MG TABLET PO SCH (20:03)
[2018-07-12] MEDS: traZODone 50 MG TABLET PO SCH (23:02)
[2018-07-13] MEDS: Acetylcysteine 10% 2 ML INHSOL IH SCH ×6 (03:41→19:53)
[2018-07-13] MEDS: Albuterol 2.5 MG/3 ML NEBULIZER IH SCH ×6 (03:41→19:53)
[2018-07-13] MEDS: *HR* OxyCODONE/APAP 10/325 TABLET PO PRN ×4 (04:25→20:26)
[2018-07-13 04:31] LABS: BUN/Creatinine Ratio 23 (6-26); Blood Urea Nitrogen 17 mg/dL (8-23); Calcium 8.2 mg/dL (8.6-10.3); Carbon Dioxide 27 mEq/L (23-29); Chloride 103 mEq/L (98-107); Glucose 113 mg/dL (70-105); Osmolality,Calculated 282 (280-300); Potassium 4.2 mEq/L (3.5-5.1); Sodium 135 mEq/L (136-145); eGFR For Non-African Americans > 60 (> 60)
--- NOTE | 2018-07-13 07:18 | Cardiothoracic Progress Note ---
Date of Encounter: 07/13/18 Time of Encounter: 07:16 - Assessment and plan (1) Cancer of upper lobe of right lung Current Visit: Yes Status: Acute The patient has improved aeration in the right lung ivan. She should continue with aggressive pulmonary toilet. The assessment and plan as outlined above was discussed with the patient and/or family members who expressed understanding and agreement. All questions were answered. - Subjective Procedure(s) Performed: POD#10 S/P Right thoracotomy with upper lobe resection Interval history: The patient remained hemodynamically stable overnight. She is breathing comfortably with supplemental oxygen. Vital Signs, Last 4 Hours Temp Pulse Resp BP Pulse Ox 07/13/18 06:51 97.4 F L 61 16 109/62 93 07/13/18 05:50 97.3 F L 67 18 102/67 93 07/13/18 03:50 14 100 Oxgyen Flow Rate Oxygen Flow Rate (LPM) 2.5 Clinical Data, last 8 Hours Output, Chest Tube Drainage 0 Amount [Right Lateral Chest #1 ] Output, Chest Tube Drainage 0 Amount [Right Lateral Chest #1 ] Output, Urine Amount 0 Output, Urine Amount 150 Weight 07/11/18 07/12/18 07/13/18 23:59 23:59 23:59 Weight 88.8 kg 88.4 kg 89 kg - Physical Examination General: Conversant, No Apparent Distress Neck: No JVD, Normal carotid pulses Cardiac: Reg Rate and Rhythm, Normal S1 and S2, No Murmur Incision: No signs of infection, Dry/intact dressing Chest tubes: Minimal drainage, Other (No air leak) Lungs: Normal Breath Sounds, No Wheeze, Rales, Rhonchi Neuro: Alert and responsive, No focal deficits noted Vascular: Normal capillary refill Extremities: No Clubbing, No Cyanosis, No Edema - Labs 07/11/18 12:57 07/13/18 03:50 Lab Results, Last 24 hours 07/13/18 03:50 Sodium 135 L Potassium 4.2 Chloride 103 Carbon Dioxide 27 BUN 17 Creatinine 0.73 Glucose 113 H Calcium 8.2 L - Imaging Chest Xray: image reviewed (No pneumothorax. Persistent right lung field opacities.) - VTE Documentation of Mechanical Device: Intermittent pneumatic compression device Consult Discharge Plan - Plan Referrals: Nelson Tolentino MD [Primary Care Provider] -
--- NOTE | 2018-07-13 09:16 | Pulmonology Progress Note ---
Date of Encounter: 07/13/18 Time of Encounter: 09:00 Assessment and Plan (1) Mucus plugging of bronchi Current Visit: Yes Status: Acute Left lower lobe mucous plugging of bronchus support her bronchoscopy 2 days ago the mucus plugging of the right mainstem and Bronchus intermedius was suctioned out . Continue N-acetylcysteine bronchopulmonary hygiene, incentive spirometry. (2) MRSA pneumonia Current Visit: Yes Status: Acute Patient is MRSA pneumonia to continue vancomycin at least 2-3 weeks according to clinical picture. Infectious disease following.To consider clindamycin on discharge according to ID but according to patient she is allergic clindamycin . 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 follow-up with oncology as outpatient. Qualifiers: Laterality: left Lung location: upper lobe of lung Qualified Code(s): C34.12 - Malignant neoplasm of upper lobe, left bronchus or lung Subjective Principal diagnosis: Squamous cell Ca of lung now with mucus plugging Interval history: Patient is doing well today not much sputum production ,denies any chest pain or back pain is under control today denies any abdominal symptoms denies any focal neurological symptoms. Objective PUL Vital signs: Last Vital Signs Temp 97.4 F L 07/13/18 06:51 Pulse 61 07/13/18 06:51 Resp 18 07/13/18 07:42 BP 109/62 07/13/18 06:51 Pulse Ox 96 07/13/18 07:42 Auscultation: bilateral: wheezes (minimal scattered wheezes ) Gait: other Results - Laboratory Findings CBC and BMP: 07/11/18 12:57 07/13/18 03:50 Abnormal lab findings: Abnormal lab results WBC 15.7 K/mcL (4.3-11.1) H 07/11/18 12:57 RBC 2.99 M/mcL (3.82-4.97) L 07/11/18 12:57 Hgb 9.1 g/dL (11.5-15.4) L D 07/11/18 12:57 Hct 27.4 % (35.3-44.9) L 07/11/18 12:57 Neutrophils # 10.9 K/mcL (1.6-8.9) H 07/11/18 12:57 Monocytes # 1.4 K/mcL (0.0-1.3) H 07/11/18 12:57 Sodium 135 mEq/L (136-145) L 07/13/18 03:50 Glucose 113 mg/dL (70-105) H 07/13/18 03:50 POC Glucose 101 mg/dL (70-99) H 07/09/18 09:35 Calcium 8.2 mg/dL (8.6-10.3) L 07/13/18 03:50 Fluid Appearance Hazy (Clear) A 07/11/18 10:20 Vancomycin Trough 23 mcg/mL (5-10) H 07/13/18 03:50 - Microbiology Findings Microbiology Findings: Microbiology, Last 48 Hours 07/11/18 10:20 Respiratory Culture - Preliminary Left Lower Lobe Lung 07/10/18 11:04 Respiratory Culture - Final Bronchial Washings Methicillin Resistant S.aureus - Clinical Findings Intake & Output: Intake & Output 07/12/18 07/13/18 07/13/18 23:59 07:59 15:59 Intake Total 350 / 350 0 / 0 120 / 120 Output Total 170 / 170 0 / 0 Balance 180 / 180 0 / 0 120 / 120 Weight 89 kg - VTE Documentation of Mechanical Device: Intermittent pneumatic compression device Consult Discharge Plan - Plan Referrals: Nelson Tolentino MD [Primary Care Provider] -
[2018-07-13] MEDS: Gabapentin 300 MG CAPSULE PO SCH ×3 (09:42→20:26)
[2018-07-13] MEDS: clonazePAM 1 MG TABLET PO SCH ×3 (09:42→20:26)
[2018-07-13] MEDS: Propranolol LA (24 HR) 80 MG CAP.SA.24H PO SCH (09:42)
[2018-07-13] MEDS: tiZANidine 4 MG TABLET PO SCH (20:26)
[2018-07-13] MEDS: traZODone 50 MG TABLET PO SCH (23:35)
[2018-07-14] MEDS: Albuterol 2.5 MG/3 ML NEBULIZER IH SCH ×7 (00:12→23:54)
[2018-07-14] MEDS: Acetylcysteine 10% 2 ML INHSOL IH SCH ×7 (00:12→23:54)
[2018-07-14 02:05] LABS: Basophils # 0.1 K/mcL (0.0-0.2); Basophils % 0.7 %; Eosinophils # 0.6 K/mcL (0.0-0.6); Hematocrit 28.3 % (35.3-44.9); Immature Granulocytes % 2.4 % (0-4); Lymphocytes # 3.5 K/mcL (0.6-4.6); Mean Corpuscular HGB Conc 31.8 g/dL (31.6-35.5); Mean Corpuscular Hemoglobin 30.2 pg (28.0-33.3); Monocytes # 1.6 K/mcL (0.0-1.3); Monocytes % 10.7 %; Neutrophils # 8.5 K/mcL (1.6-8.9); Platelet Count 276 K/mcL (140-400); Red Blood Count 2.98 M/mcL (3.82-4.97); Red Cell Distribution Width 13.4 % (11.5-14.5); Segmented Neutrophils % 58.2 %
[2018-07-14 02:25] LABS: BUN/Creatinine Ratio 16 (6-26); Blood Urea Nitrogen 12 mg/dL (8-23); Calcium 8.5 mg/dL (8.6-10.3); Carbon Dioxide 25 mEq/L (23-29); Chloride 102 mEq/L (98-107); Glucose 120 mg/dL (70-105); Osmolality,Calculated 281 (280-300); Sodium 135 mEq/L (136-145); eGFR For Non-African Americans > 60 (> 60)
[2018-07-14] MEDS: *HR* OxyCODONE/APAP 10/325 TABLET PO PRN ×5 (04:12→23:31)
[2018-07-14] MEDS: Gabapentin 300 MG CAPSULE PO SCH ×3 (09:10→21:06)
[2018-07-14] MEDS: Propranolol LA (24 HR) 80 MG CAP.SA.24H PO SCH (09:10)
[2018-07-14] MEDS: clonazePAM 1 MG TABLET PO SCH ×3 (12:06→21:06)
[2018-07-14 14:41] LABS: Influenza A PCR Body Fluid NOT DETECTED; Influenza B PCR Body Fluid NOT DETECTED; RVP Body Fluid Source BAL LLL
[2018-07-14] MEDS: tiZANidine 4 MG TABLET PO SCH (21:06)
[2018-07-14] MEDS: traZODone 50 MG TABLET PO SCH (23:31)
[2018-07-15] MEDS: Acetylcysteine 10% 2 ML INHSOL IH SCH ×6 (03:58→23:21)
[2018-07-15] MEDS: Albuterol 2.5 MG/3 ML NEBULIZER IH SCH ×6 (03:58→23:21)
[2018-07-15] MEDS: *HR* OxyCODONE/APAP 10/325 TABLET PO PRN ×5 (04:41→22:14)
[2018-07-15 04:57] LABS: BUN/Creatinine Ratio 14 (6-26); Blood Urea Nitrogen 12 mg/dL (8-23); Calcium 8.3 mg/dL (8.6-10.3); Carbon Dioxide 31 mEq/L (23-29); Chloride 101 mEq/L (98-107); Glucose 104 mg/dL (70-105); Osmolality,Calculated 282 (280-300); Potassium 4.2 mEq/L (3.5-5.1); Sodium 136 mEq/L (136-145); eGFR For Non-African Americans > 60 (> 60)
[2018-07-15] MEDS: clonazePAM 1 MG TABLET PO SCH ×3 (07:49→21:57)
[2018-07-15] MEDS: Gabapentin 300 MG CAPSULE PO SCH ×3 (07:49→21:57)
[2018-07-15] MEDS: Propranolol LA (24 HR) 80 MG CAP.SA.24H PO SCH (07:49)
[2018-07-15 11:01] LABS: RSV PCR Body Fluid NOT DETECTED
--- NOTE | 2018-07-15 11:39 | Infectious Disease Progress No ---
Date of Encounter: 07/15/18 Time of Encounter: 11:36 - Assessment and Plan (1) MRSA pneumonia Current Visit: Yes Status: Acute Chest x-ray 07/10/18 showed marked volume loss in the right hemithorax and mediastinal shift towards the right. Bronchoscopy performed 07/10/18 that revealed left lung with copious mucopurulent thick secretions in the left lower lobe that were partially obstructing the left main stem. BAL cultures are positive for MRSA. Pulmonology continues to follow. Currently on IV vancomycin. Recommendations: Daily CBC and BMP. Continue vancomycin IV. Pharmacy to dose. Goal trough proximally 15. Vanc trough elevated at 31. Discussed with pharmacy. Duration of treatment depends on the clinical picture, but likely 2-3 weeks. Can consider switching to oral Clindamycin when ready for discharge to complete course of treatment. The patient states she is allergic and cannot take clindamycin. Allergy listed is nausea and vomiting. May have to consider IV Vancomycin vs. PO Bactrim when ready for discharge. Monitor renal function and for drug toxicity and dose adjust antibiotics. Qualifiers: Laterality: left Lung location: lower lobe of lung Qualified Code(s): J15.212 - Pneumonia due to Methicillin resistant Staphylococcus aureus (2) Mucus plugging of bronchi Current Visit: Yes Status: Acute Status post bronchoscopy 07/10/18. Pulmonology continues to follow. Likely multifactorial: Recent surgery plus lung cancer plus bronchomalacia. Aggressive pulmonary toileting per pulmonology's recommendations. (3) Pulmonary histoplasmosis Current Visit: Yes Status: Chronic Patient had a cavitary lung lesion in 2002; concern for malignancy status post surgical removal of the lesion. Patient tells me it was histoplasmosis. No further treatment was given. Pathology 07/03/18: Several lymph nodes contain granulomas, some of which are necrotizing and contain yeast forms consistent with Histoplasma. The classif ication as squamous cell carcinoma is supported by immunohistochemistry. Will start treatment with itraconazole once clinically stable and okay with CTS. Duration of treatment for itraconazole probably 1 year. Will check fungitell and histo antigen--> pending. 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 Augmentin: Nausea. Clindamycin: Nausea/vomiting. Doxycycline: Nausea/diarrhea. Macrobid: Nausea/vomiting. (6) Cancer of upper lobe of right lung Current Visit: Yes Status: Acute - Subjective Interval history: Chief complaint: MRSA PNA Patient seen and examined. Weekend notes reviewed. No acute events noted overnight. Patient complains of mild pain at the chest tube insertion and surgical site. Denies fevers, chills, or rigors. Denies chest pain, shortness of breath, or cough. Denies nausea, vomiting, diarrhea, or constipation. She denies abdominal pain or urinary complaints. Reports poor by mouth intake because she does not like the food here. Infect Dis PN-Objective Data - Labs CBC & Chem 7: 07/14/18 01:38 07/15/18 04:00 Labs: Laboratory Results - last 24 hr 07/11/18 07/15/18 07/15/18 10:20 04:00 04:00 Sodium 136 Potassium 4.2 Chloride 101 Carbon Dioxide 31 H BUN 12 Creatinine 0.83 Est GFR ( Amer) > 60 Est GFR (Non-Af Amer) > 60 BUN/Creatinine Ratio 14 Glucose 104 Calculated Osmolality 282 Calcium 8.3 L Fluid Source BAL LLL Vancomycin Trough 31 H Influenza Type A (PCR) NOT DETECTED Influenza Type B (PCR) NOT DETECTED RSV (PCR) NOT DETECTED Cultures: Cultures 07/11/18 10:20 Respiratory Culture - Final Left Lower Lobe Lung 07/11/18 10:20 Acid Fast Stain - Final Left Lower Lobe Lung 07/10/18 11:04 Respiratory Culture - Final Bronchial Washings Methicillin Resistant S.aureus Serology 07/11/18 07/11/18 Range/Units 10:20 10:20 Fluid Source left lower lobe lung BAL LLL Fluid Volume 10 mL Fluid Appearance Hazy A (Clear) Fluid RBC TNP Fld Tot Nucleated Cell TNP Fluid Seg Neutrophil % 66.0 % Fld Band Neutrophil % Test Not Performed Fluid Lymphocytes % 6.0 % Fluid Monocytes % Test Not Performed Fluid Eosinophils % Test Not Performed Fluid Basophils % Test Not Performed Fluid Other Cells % 28.0 % Influenza Type A (PCR) NOT DETECTED Influenza Type B (PCR) NOT DETECTED RSV (PCR) NOT DETECTED - Impressions Impressions Chest X-Ray 07/12/18 04:00 IMPRESSION: Redemonstration of right hemithorax postsurgical changes. Small right pleural effusion has decreased in size since the prior examination. Right-sided chest tube is in unchanged position. Increasing lucency surrounding the distal end of the chest tube may reflect a small, anterior pneumothorax. Trace left pleural effusion and mild left basilar atelectasis. D/ : / 07/12/2018 08:05:00 Juliana Pastor MD / [email or web address] Interpreting Provider: Juliana Pastor MD Chest X-Ray 07/14/18 06:00 IMPRESSION: No change in appearance of the chest with large right loculated pleural effusion and small left pleural effusion. D/ /14/2018 08:10:57 Jorge Jhaveri MD / [email or web address] Interpreting Provider: Jorge Jhaveri MD Exam - Constitutional Vitals: Temp Pulse Resp BP Pulse Ox 97.9 F 63 20 127/59 99 07/15/18 07:55 07/15/18 07:55 07/15/18 08:04 07/15/18 07:55 07/15/18 08:04 General appearance: cooperative, no acute distress, obese - Head Head exam: Present: atraumatic, normal inspection, normocephalic - Eye Eye exam: Present: EOMI, normal appearance, PERRL Pupils: Present: normal accommodation - ENT ENT exam: Present: mucous membranes moist - Neck Neck exam: Present: normal inspection - Respiratory Respiratory exam: Present: decreased breath sounds (right base), rhonchi (throughout) Additional comments: Chest tube noted to the right lateral chest wall with small amount of serous fluid with dressing C/D/I. CLEM drain with scant serous drainage. Surgical site noted to the right posterior chest wall with steri-strips intact. - Cardiovascular Cardiovascular exam: Present: RRR, +S1, +S2 - GI/Abdominal GI/Abdominal exam: Present: distended (obese), normal bowel sounds, soft. Absent: tenderness - Extremities Exam Extremities exam: Present: normal inspection. Absent: joint swelling, pedal edema, tenderness - Neurological Exam Neurological exam: Present: alert, oriented X3, no focal deficits - Psychiatric Psychiatric exam: Present: normal affect, normal mood - Skin Skin exam: Present: dry, intact, normal color, warm - VTE Documentation of Mechanical Device: Intermittent pneumatic compression device Consult Discharge Plan - Plan Referrals: Nelson Tolentino MD [Primary Care Provider] -
--- NOTE | 2018-07-15 11:59 | Cardiothoracic Progress Note ---
Date of Encounter: 07/15/18 Time of Encounter: 11:56 - Assessment and plan (1) Cancer of upper lobe of right lung Current Visit: Yes Status: Acute clamp chest tube at midnight tonight. follow up chest xray in am. plan to remove chest tube tomorrow if chest xray stable. Patient upset that she still has not ambulated in the halls. She has only moved from the bed to the bedside commode. Verenice the nurse crop grain or livestock farm manager at the bedside while I stood in the door way to have Mrs. Mcfarland repeat her desire for activity. PT orders written 07/10 and patient states they have not worked with her. (2) Pulmonary histoplasmosis Current Visit: Yes Status: Chronic The assessment and plan as outlined above was discussed with the patient and/or family members who expressed understanding and agreement. All questions were answered. 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 All questions were answered. - Subjective Interval history: anxious to go home Vital Signs, Last 4 Hours Resp Pulse Ox 07/15/18 08:04 20 99 Oxgyen Flow Rate Oxygen Flow Rate (LPM) 2.5 Clinical Data, last 8 Hours Output, Chest Tube Drainage 0 Amount [Right Lateral Chest #1 ] Output, Chest Tube Drainage 0 Amount [Right Lateral Chest #1 ] Output, Chest Tube Drainage 0 Amount [Right Lateral Chest #1 ] Output, Urine Amount 400 Weight 07/13/18 07/14/18 07/15/18 23:59 23:59 23:59 Weight 89 kg 88.8 kg 89 kg - Physical Examination General: Conversant, No Apparent Distress HEENT: Atraumatic, Normocephaly Cardiac: Reg Rate and Rhythm, Normal S1 and S2 Incision: No signs of infection, Dry/intact dressing Chest tubes: Minimal drainage Lungs: Other (cta on the left. decreased on the right. ) Neuro: Alert and responsive, No focal deficits noted, Cranial nerves intact Vascular: Normal capillary refill - Labs 07/14/18 01:38 07/15/18 04:00 Lab Results, Last 24 hours 07/15/18 04:00 Sodium 136 Potassium 4.2 Chloride 101 Carbon Dioxide 31 H BUN 12 Creatinine 0.83 Glucose 104 Calcium 8.3 L - VTE Documentation of Mechanical Device: Intermittent pneumatic compression device Consult Discharge Plan - Plan Referrals: Nelson Tolentino MD [Primary Care Provider] -
[2018-07-15 12:28] LABS: Basophils # 0.1 K/mcL (0.0-0.2); Basophils % 0.7 %; Eosinophils # 0.7 K/mcL (0.0-0.6); Eosinophils % 3.6 %; Immature Granulocytes % 2.7 % (0-4); Lymphocytes % 20.3 %; Mean Corpuscular HGB Conc 33.3 g/dL (31.6-35.5); Mean Corpuscular Hemoglobin 30.9 pg (28.0-33.3); Mean Corpuscular Volume 92.6 fL (83.0-100.0); Mean Platelet Volume 11.4 fL (9.4-12.4); Neutrophils # 12.3 K/mcL (1.6-8.9); Nucleated Red Blood Cells 0.7 /100 WBC (0); Platelet Count 205 K/mcL (140-400); Red Blood Count 3.24 M/mcL (3.82-4.97); Red Cell Distribution Width 13.2 % (11.5-14.5); Segmented Neutrophils % 62.7 %
[2018-07-15] MEDS ORDERED: Aminoglycoside Consult 1 EACH MC ONE (13:34)
[2018-07-15] MEDS: traZODone 50 MG TABLET PO SCH (21:56)
[2018-07-15] MEDS: tiZANidine 4 MG TABLET PO SCH (21:57)
[2018-07-16 00:58] LABS: HSV Source BAL
[2018-07-16] MEDS: Acetylcysteine 10% 2 ML INHSOL IH SCH ×3 (03:35→10:55)
[2018-07-16] MEDS: Albuterol 2.5 MG/3 ML NEBULIZER IH SCH ×3 (03:35→10:55)
[2018-07-16] MEDS: *HR* OxyCODONE/APAP 10/325 TABLET PO PRN ×2 (06:07→10:58)
[2018-07-16 07:31] VITALS: BP 110/54
--- NOTE | 2018-07-16 08:58 | Discharge Summary ---
Orders not resulted at time of discharge: Pending orders 07/02/18 12:26 Red Blood Cells [BBK] Routine 07/11/18 10:20 AFB Culture, Respiratory [TB] Routine AFB Smear [TB] Routine Fungal Culture [MYC] Routine Herpes Simplex PCR Body Fl Routine Legionella Culture [RM] Routine 07/15/18 12:00 Fungitell (1,3)-[id number] Routine Histoplasma Antigen Routine 07/16/18 20:00 Vancomycin,Trough Timed Date of Encounter: 07/16/18 Time of Encounter: 08:56 - Discharge Diagnosis (1) Cancer of upper lobe of right lung Priority: Primary Status: Acute (2) Pulmonary histoplasmosis Priority: Secondary Status: Chronic (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 The cancer was first identified 08/2017 and referred to in for surgical resection 06/2018. Her postoperative course was complicated by HCAP because of not being ambulated despite orders. She ambulated for the 1st time 07/15/2018. She had consultation with ID. She was placed on aggressive pulmonary toilet and improved. Her final pathology demonstrated a [id number] squamous cell. - Time Spent with Patient Total time spent providing and/or coordinating discharge services: - Discharge Medications Home Medications: Furosemide [Lasix] 40 mg PO DAILY 08/18/15 [History] Magnesium Oxide [Magnesium] 400 mg PO DAILY 08/18/15 [History] Pantoprazole Sodium [Protonix] 40 mg PO DAILY 08/18/15 [History] Pnv with Ca,No.72/Iron,Carb/FA [ Plus Iron Tablet] 1 each PO DAILY 08/18/15 [History] Potassium Chloride 10 meq PO DAILY 08/18/15 [History] Sodium Chloride [Sodium Chloride Tab] 2 gm PO DAILY 08/18/15 [History] Spironolactone [Aldactone] 25 mg PO DAILY 08/18/15 [History] Tizanidine HCl 12 mg PO HS 08/18/15 [History] Trazodone HCl 150 mg PO HS 08/18/15 [History] Meclizine HCl [Verticalm] 25 mg PO DAILY PRN 01/20/18 [History] Acetaminophen [Tylenol] 650 mg PO Q6HR PRN tablet 01/23/18 [Rx] Albuterol Sulfate [Albuterol Inhaler] 2 puff IH Q4H PRN 06/24/18 [History] Azelastine 0.1% Nasal Granite [Astelin] 2 spray NS BID PRN 07/03/18 [History] Butalbital/Aspirin/Caffeine [Vlgyvkkcvc-HVH-Gipfdmwu Cap] 2 cap PO DAILY PRN 07/03/18 [History] Cetirizine HCl [Zyrtec] 10 mg PO DAILY 07/03/18 [History] Diphenoxylate/Atropine [Lomotil 2.5 mg/0.025 mg] 2 tab PO DAILY PRN 07/03/18 [History] Ibuprofen [Ibu] 800 mg PO DAILY PRN 07/03/18 [History] Promethazine [Phenergan] 25 mg PO DAILY PRN 07/03/18 [History] clonazePAM [Clonazepam] 1 mg PO TID 07/03/18 [History] Propranolol HCl [Innopran Xl] 80 mg PO DAILY 07/09/18 [History] Allergies/Adverse Reactions: Allergy/AdvReac Type Severity Reaction Status Date / Time acetaminophen Allergy Nausea Verified 01/21/18 10:03 [From Tylenol-Codeine #3] codeine Allergy Nausea Verified 01/21/18 10:03 [From Tylenol-Codeine #3] Amoxicillin AdvReac Itching Verified 07/03/18 11:50 clavulanic acid AdvReac Nausea Verified 07/03/18 11:50 [From Augmentin] clindamycin AdvReac NAUSEA, Verified 07/03/18 11:50 VOMITING doxycycline AdvReac NAUSEA, Verified 07/03/18 11:50 DIARRHEA guaifenesin [From Mucinex] AdvReac See Verified 07/03/18 11:50 Comments hydrocodone [From Vicodin] AdvReac Itching Verified 07/03/18 11:50 Iodinated Contrast- Oral and AdvReac Rash Verified 07/03/18 11:50 IV Dye metoclopramide [From Reglan] AdvReac Itching Verified 07/03/18 11:50 nitrofurantoin AdvReac NAUSEA, Verified 07/03/18 11:50 [From Macrobid] VOMITING prednisone AdvReac SHORTNESS Verified 07/03/18 11:50 OF BREATH Date of admission: 07/03/18 12:55 Primary care physician: Nelson Tolentino MD Consults: 07/10/18 08:03 Consult to Pulmonary Rehab [CONS] Routine Reason for Consult: Bronchoscopy for removal of mucous plug Time Notified: 07:35 Call Completed: Yes 07/10/18 11:36 Consult to Physical Therapy [CONS] Routine Comment: Evaluate, develop and implement POC Reason for Consult: ambulation and strengthening Does patient have active BEDREST order?: No Is patient medically & hemodynamically stable?: Yes Patient assessed for mobility or mobilized this visit?: No 07/11/18 11:35 Consult to Pulmonary Rehab [CONS] Routine Reason for Consult: Bronchoscopy for mucous plug Time Notified: 07:43 Call Completed: Yes 07/11/18 14:34 Consult to Infectious Diseases [CONS] Routine Consulting Provider: [facility] [place] Reason for Consult: Positive MRSA Culture Call Completed: No 07/15/18 16:30 Consult to Nurse Navigator [CONS] Routine Comment: MRSA pneumonia Procedure(s) Performed: bronchoscopy, right thoracotomy upper lobectomy, lymph node dissection bronchoscopy with aspiration Discharging clinician: Geo Veras (patient to follow up with me in 2 weeks with chest xray ) Anticipated date of discharge: 07/16/18 Physical Examination Vital Signs, Last 4 Hours Temp Pulse Resp BP Pulse Ox 07/16/18 07:26 97.5 F L 59 16 110/54 100 07/16/18 07:22 18 96 General: Conversant, No Apparent Distress HEENT: Atraumatic, Normocephaly Cardiac: Reg Rate and Rhythm Lungs: Normal Breath Sounds Neuro: Alert and responsive, No focal deficits noted Abdomen: Soft Skin: Other (incisions clean. chest tube site without any signs of infection ) Extremities: No Edema, Normal Pulses - Patient Status Disposition: Home, Self-Care Condition: Fair Functional capacity at discharge: independent ambulation Overall status at discharge: patient is progressing back to baseline - Discharge Instructions Follow Up With: Nelson Tolentino MD [Primary Care Provider] - Additional Instructions: call dr. veras's office and schedule a 2 week appointment and chest xray - Diet and Activity Activity: other (no airline travel for 1 month. no driving if taking pain medications. ) Diet: advance to your usual diet Additional instructions: no lifting more than 20 pounds for 1 month - VTE Documentation of Mechanical Device: Intermittent pneumatic compression device
[2018-07-16] MEDS: Propranolol LA (24 HR) 80 MG CAP.SA.24H PO SCH (09:26)
[2018-07-16] MEDS: clonazePAM 1 MG TABLET PO SCH (09:26)
[2018-07-16] MEDS: Gabapentin 300 MG CAPSULE PO SCH (09:27)
--- NOTE | 2018-07-16 10:28 | Infectious Disease Progress No ---
Date of Encounter: 07/16/18 Time of Encounter: 09:40 - Assessment and Plan (1) MRSA pneumonia Current Visit: Yes Status: Acute Chest x-ray 07/10/18 showed marked volume loss in the right hemithorax and mediastinal shift towards the right. Bronchoscopy performed 07/10/18 that revealed left lung with copious mucopurulent thick secretions in the left lower lobe that were partially obstructing the left main stem. BAL cultures are positive for MRSA. Pulmonology continues to follow. Currently on IV vancomycin. Recommendations: Daily CBC and BMP. Continue vancomycin IV. Pharmacy to dose. Goal trough proximally 15. Vanc trough elevated at 31 yesterday. Discussed with pharmacy. Duration of treatment depends on the clinical picture, but likely 3 weeks. I had a long discussion with the patient regarding potential antibiotic options for MRSA pneumonia. Per the IDSA guidelines, MRSA PNA should be treated with IV Vancomycin, PO/IV Clindamycin, or IV Daptomycin. The patient is unable to tolerate oral Clindaymycin due to severe nausea and vomiting. I have offered her the opportuunity to do home IV Vancomycin with the assistance of home health. She declines this as well. The only other alternative is to use PO Bactrim to complete the course of treatment. I advised the patient this this is not a medication that is recommended in the guidelines, but in theory it should work since her strain of MRSA is susceptible. She verbalizes understanding of this and wishes to proceed with oral Bactrim with the understanding that if she fails to continue to improve or worsens, she will likely need to go back on IV antibiotics. She verbalizes understanding and again wishes to proceed with PO Bactrim on discharge. Recommend Bactrim DS 1 tab PO BID to complete a 21 day course of treatment. Treat through 07/31/18. The patient states she usually get yeast infections with antibiotic use. Recommend prophylactic fluconazole 200mg PO once a week for the duration of antibiotic therapy. Advised the patient to consider eating yogurt daily and starting a probiotic which may help with this as well. Monitor renal function and for drug toxicity and dose adjust antibiotics. Qualifiers: Laterality: left Lung location: lower lobe of lung Qualified Code(s): J15.212 - Pneumonia due to Methicillin resistant Staphylococcus aureus (2) Mucus plugging of bronchi Current Visit: Yes Status: Acute Status post bronchoscopy 07/10/18. Pulmonology continues to follow. Likely multifactorial: Recent surgery plus lung cancer plus bronchomalacia. Aggressive pulmonary toileting per pulmonology's recommendations. (3) Pulmonary histoplasmosis Current Visit: Yes Status: Chronic Patient had a cavitary lung lesion in 2002; concern for malignancy status post surgical removal of the lesion. Patient tells me it was histoplasmosis. No further treatment was given. Pathology 07/03/18: Several lymph nodes contain granulomas, some of which are necrotizing and contain yeast forms consistent with Histoplasma. The classification as squamous cell carcinoma is supported by immunohistochemistry. Will start treatment with itraconazole once clinically stable and okay with CTS. Duration of treatment for itraconazole probably 1 year. Will check fungitell and histo antigen--> pending. Follow up with ID as scheduled. 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 Augmentin: Nausea. Clindamycin: Nausea/vomiting. Doxycycline: Nausea/diarrhea. Macrobid: Nausea/vomiting. (6) Cancer of upper lobe of right lung Current Visit: Yes Status: Acute - Subjective Interval history: Chief complaint: MRSA PNA Patient seen and examined. No acute events noted overnight. Chest tube removed this morning by CTS. Patient complains of mild pain at the chest tube insertion and surgical site, improved since CT removed. Denies fevers, chills, or rigors. Denies chest pain, shortness of breath, or cough. Denies nausea, vomiting, diarrhea, or constipation. She denies abdominal pain or urinary complaints. Reports poor by mouth intake because she does not like the food here. Infect Dis PN-Objective Data - Labs CBC & Chem 7: 07/15/18 12:00 07/15/18 04:00 Labs: Laboratory Results - last 24 hr 07/11/18 07/11/18 07/15/18 10:20 10:20 12:00 WBC 19.6 H RBC 3.24 L Hgb 10.0 L Hct 30.0 L MCV 92.6 MCH 30.9 MCHC 33.3 RDW 13.2 Plt Count 205 MPV 11.4 Immature Gran % 2.7 Seg Neutrophils % 62.7 Lymphocytes % 20.3 Monocytes % 10.0 Eosinophils % 3.6 Basophils % 0.7 Neutrophils # 12.3 H Lymphocytes # 4.0 Monocytes # 2.0 H Eosinophils # 0.7 H Basophils # 0.1 Nucleated RBCs/100 WBC 0.7 H Fluid Source BAL LLL Random Vancomycin Herpes Simplex Source BAL Herpes Simplex DNA PCR NOT DETECTED Influenza Type A (PCR) NOT DETECTED Influenza Type B (PCR) NOT DETECTED RSV (PCR) NOT DETECTED 07/15/18 19:01 WBC RBC Hgb Hct MCV MCH MCHC RDW Plt Count MPV Immature Gran % Seg Neutrophils % Lymphocytes % Monocytes % Eosinophils % Basophils % Neutrophils # Lymphocytes # Monocytes # Eosinophils # Basophils # Nucleated RBCs/100 WBC Fluid Source Random Vancomycin 17 Herpes Simplex Source Herpes Simplex DNA PCR Influenza Type A (PCR) Influenza Type B (PCR) RSV (PCR) Cultures: Cultures 07/11/18 10:20 Respiratory Culture - Final Left Lower Lobe Lung 07/11/18 10:20 Acid Fast Stain - Final Left Lower Lobe Lung 07/10/18 11:04 Respiratory Culture - Final Bronchial Washings Methicillin Resistant S.aureus Serology 07/11/18 07/11/18 07/11/18 Range/Units 10:20 10:20 10:20 Fluid Source left lower lobe lung BAL LLL Fluid Volume 10 mL Fluid Appearance Hazy A (Clear) Fluid RBC TNP Fld Tot Nucleated Cell TNP Fluid Seg Neutrophil % 66.0 % Fld Band Neutrophil % Test Not Performed Fluid Lymphocytes % 6.0 % Fluid Monocytes % Test Not Performed Fluid Eosinophils % Test Not Performed Fluid Basophils % Test Not Performed Fluid Other Cells % 28.0 % Herpes Simplex Source BAL Herpes Simplex DNA PCR NOT DETECTED Influenza Type A (PCR) NOT DETECTED Influenza Type B (PCR) NOT DETECTED RSV (PCR) NOT DETECTED - Impressions Impressions Chest X-Ray 07/16/18 08:00 IMPRESSION: Overall stable appearing chest with a large bore chest tube noted on the right. The lucency seen laterally within the right upper hemithorax could represent possible aerated lung or a small stable pneumothorax. The right-sided pleural effusion and airspace disease appear similar. Chest wall emphysema. Of note, the side hole for the right-sided chest tube is at the intercostal space. D/ / Brendan Morocho MD / Brendan Morocho MD Interpreting Provider: Brendan Morocho MD Exam - Constitutional Vitals: Temp Pulse Resp BP Pulse Ox 97.5 F L 59 16 110/54 100 07/16/18 07:26 07/16/18 07:26 07/16/18 07:26 07/16/18 07:26 07/16/18 07:26 General appearance: cooperative, no acute distress, obese - Head Head exam: Present: atraumatic, normal inspection, normocephalic - Eye Eye exam: Present: EOMI, normal appearance, PERRL Pupils: Present: normal accommodation - ENT ENT exam: Present: mucous membranes moist - Neck Neck exam: Present: normal inspection - Respiratory Respiratory exam: Present: decreased breath sounds (bilateral bases), CTAB. Absent: rales, respiratory distress, rhonchi, wheezes - Cardiovascular Cardiovascular exam: Present: RRR, +S1, +S2 - GI/Abdominal GI/Abdominal exam: Present: distended (obese), normal bowel sounds, soft. Absent: tenderness - Extremities Exam Extremities exam: Present: normal inspection. 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 CT site with dressing C/D/I. - VTE Documentation of Mechanical Device: Intermittent pneumatic compression device Consult Discharge Plan - Plan Instructions: Pneumonia (DC) Referrals: Nelson Tolentino MD [Primary Care Provider] - 07/22/18 10:45 am Geo Martino MD [Partnered Physician] - 07/30/18 1:45 pm Clemente Major MD [Partnered Physician] - 08/06/18 10:15 am
--- NOTE | 2018-07-16 13:21 | Physician Discharge Referral ---
Home Health/Hosp Referral Info Transfer to: Home Health Attending Provider: rito - Diagnosis (1) Cancer of upper lobe of right lung Status: Acute (2) Pulmonary histoplasmosis Status: Chronic (3) Situs inversus totalis Status: Chronic (4) HCAP (healthcare-associated pneumonia) Status: Acute - Respiratory Orders Smoking Cessation: Smoking cessation has been advised. For more information, call the [place] Tobacco Quit Line at 3-371-AEQE-NOW. - Activity Activity Orders: Ambulate - Services Needed Following services are medically necessary services: Nursing, Physical Therapy, Occupational Therapy - Transfer Medications Home Medications: Furosemide [Lasix] 40 mg PO DAILY 08/18/15 [History] Magnesium Oxide [Magnesium] 400 mg PO DAILY 08/18/15 [History] Pantoprazole Sodium [Protonix] 40 mg PO DAILY 08/18/15 [History] Pnv with Ca,No.72/Iron,Carb/FA [ Plus Iron Tablet] 1 each PO DAILY 08/18/15 [History] Potassium Chloride 10 meq PO DAILY 08/18/15 [History] Sodium Chloride [Sodium Chloride Tab] 2 gm PO DAILY 08/18/15 [History] Spironolactone [Aldactone] 25 mg PO DAILY 08/18/15 [History] Tizanidine HCl 12 mg PO HS 08/18/15 [History] Trazodone HCl 150 mg PO HS 08/18/15 [History] Meclizine HCl [Verticalm] 25 mg PO DAILY PRN 01/20/18 [History] Acetaminophen [Tylenol] 650 mg PO Q6HR PRN tablet 01/23/18 [Rx] Albuterol Sulfate [Albuterol Inhaler] 2 puff IH Q4H PRN 06/24/18 [History] Azelastine 0.1% Nasal [place] [Astelin] 2 spray NS BID PRN 07/03/18 [History] Butalbital/Aspirin/Caffeine [Zgmyppqkeh-NPL-Pegzwter Cap] 2 cap PO DAILY PRN 07/03/18 [History] Cetirizine HCl [Zyrtec] 10 mg PO DAILY 07/03/18 [History] Diphenoxylate/Atropine [Lomotil 2.5 mg/0.025 mg] 2 tab PO DAILY PRN 07/03/18 [History] Ibuprofen [Ibu] 800 mg PO DAILY PRN 07/03/18 [History] Promethazine [Phenergan] 25 mg PO DAILY PRN 07/03/18 [History] clonazePAM [Clonazepam] 1 mg PO TID 07/03/18 [History] Propranolol HCl [Innopran Xl] 80 mg PO DAILY 07/09/18 [History] Allergies/Adverse Reactions: Allergy/AdvReac Type Severity Reaction Status Date / Time acetaminophen Allergy Nausea Verified 01/21/18 10:03 [From Tylenol-Codeine #3] codeine Allergy Nausea Verified 01/21/18 10:03 [From Tylenol-Codeine #3] Amoxicillin AdvReac Itching Verified 07/03/18 11:50 clavulanic acid AdvReac Nausea Verified 07/03/18 11:50 [From Augmentin] clindamycin AdvReac NAUSEA, Verified 07/03/18 11:50 VOMITING doxycycline AdvReac NAUSEA, Verified 07/03/18 11:50 DIARRHEA guaifenesin [From Mucinex] AdvReac See Verified 07/03/18 11:50 Comments hydrocodone [From Vicodin] AdvReac Itching Verified 07/03/18 11:50 Iodinated Contrast- Oral and AdvReac Rash Verified 07/03/18 11:50 IV Dye metoclopramide [From Reglan] AdvReac Itching Verified 07/03/18 11:50 nitrofurantoin AdvReac NAUSEA, Verified 07/03/18 11:50 [From Macrobid] VOMITING prednisone AdvReac SHORTNESS Verified 07/03/18 11:50 OF BREATH Certification: Further, I certify that my clinical findings support that this patient is homebound (i.e. absences from home require considerable and taxing effort and ar e for medical reasons or voodoo services or infrequently or short duration when for other reasons) because: Homebound Reason: Patient requires assistance of a person or device to safely leave home, Post-surgery restriction and or conditions limit ability to leave home Attestation: My signature below is to certify that this patient is under my care and that I, or nurse practitioner, or a physician's electrical assistant working with me, has a [id number] encounter with this patient.
== END 2018-07-16 13:35 | disposition home or self-care (01) | DRG 120 ==
LOC: SAMDAY 08:41 → ICNU 12:55 → 2NENU 07-04 17:04
PROVIDERS: ADMIT Thoracic Surgery (Cardiothoracic Vascular Surgery); ATTEND Thoracic Surgery (Cardiothoracic Vascular Surgery)

== ENCOUNTER 2019-02-21 12:56 | Inpatient (IN) ==
--- NOTE | 2019-02-21 13:18 | Emergency Department Note ---
Disposition Clinical Impression: Elevated troponin, Lung nodule, Hypoxia Community acquired pneumonia Qualifiers: Laterality: right Lung location: middle lobe of lung Qualified Code(s): J18.1 - Lobar pneumonia, unspecified organism Disposition: Admitted As Inpatient Forms: ED Satisfaction Letter Time of Disposition: 15:43 SOB HPI - General Chief Complaint: ED Shortness of Breath/Dyspnea Stated Complaint: ANA Time Seen by Provider: 02/21/19 13:13 Source: patient, EMS Mode of arrival: EMS Limitations: no limitations Nursing Notes Reviewed: Yes Vital Signs Reviewed: Yes - History of Present Illness 63F with PMHx of Kartagener syndrome, COPD and hypertension presents to the Ed from her PCP office with the complaint of shortness of breath and cough for the past week. She states her symptoms began over Labor Day weekend and she has been feeling worse since then. She is scheduled a visit at her primary care doctor's office today and was sent here for further evaluation. She also admits to having subjective fevers and chills at home. She denies abdominal pain, N/V/D. She has not been on steroids recently or had any other recent illnesses. She had lung cancer which was resected without chemo or radiation and has follow up CT scans every 3 months with her last being a month ago. Pt is not on oxygen at home. - Related Data Home Medications Medication Instructions Recorded Confirmed Furosemide [Lasix] 40 mg PO DAILY 08/18/15 10/24/18 Magnesium Oxide [Magnesium] 400 mg PO DAILY 08/18/15 10/24/18 Pantoprazole Sodium [Protonix] 40 mg PO DAILY 08/18/15 10/24/18 Pnv with Ca,No.72/Iron,Carb/FA 1 each PO DAILY 08/18/15 10/24/18 [ Plus Iron Tablet] Potassium Chloride 10 meq PO DAILY 08/18/15 10/24/18 Sodium Chloride [Sodium Chloride 2 gm PO DAILY 08/18/15 10/24/18 Tab] Spironolactone [Aldactone] 25 mg PO DAILY 08/18/15 10/24/18 Tizanidine HCl 12 mg PO HS 08/18/15 10/24/18 Trazodone HCl 150 mg PO HS 08/18/15 10/24/18 Meclizine HCl [Verticalm] 25 mg PO DAILY PRN 01/20/18 10/24/18 Albuterol Sulfate [Albuterol 2 puff IH Q4H PRN 06/24/18 10/24/18 Inhaler] Azelastine 0.1% Nasal [place] 2 spray NS BID PRN 07/03/18 10/24/18 [Astelin] Butalbital/Aspirin/Caffeine 2 cap PO DAILY PRN 07/03/18 10/24/18 [Nhfsngvgov-PYM-Jxhkkhld Cap] Cetirizine HCl [Zyrtec] 10 mg PO DAILY 07/03/18 10/24/18 Diphenoxylate/Atropine [Lomotil 2 tab PO DAILY PRN 07/03/18 10/24/18 2.5 mg/0.025 mg] Ibuprofen [Ibu] 800 mg PO DAILY PRN 07/03/18 10/24/18 Promethazine [Phenergan] 25 mg PO DAILY PRN 07/03/18 10/24/18 clonazePAM [Clonazepam] 1 mg PO TID 07/03/18 10/24/18 Propranolol HCl [Innopran Xl] 80 mg PO DAILY 07/09/18 10/24/18 Previous Rx's Medication Instructions Recorded Acetaminophen [Tylenol] 650 mg PO Q6HR PRN tablet 01/23/18 Allergies Allergy/AdvReac Type Severity Reaction Status Date / Time acetaminophen Allergy Nausea Verified 10/24/18 13:54 [From Tylenol-Codeine #3] codeine Allergy Nausea Verified 10/24/18 13:54 [From Tylenol-Codeine #3] Amoxicillin AdvReac Itching Verified 10/24/18 13:54 clavulanic acid AdvReac Nausea Verified 10/24/18 13:54 [From Augmentin] clindamycin AdvReac NAUSEA, Verified 10/24/18 13:54 VOMITING doxycycline AdvReac NAUSEA, Verified 10/24/18 13:54 DIARRHEA guaifenesin [From Mucinex] AdvReac See Verified 10/24/18 13:54 Comments hydrocodone [From Vicodin] AdvReac Itching Verified 10/24/18 13:54 Iodinated Contrast Media AdvReac Rash Verified 10/24/18 13:54 metoclopramide [From Reglan] AdvReac Itching Verified 10/24/18 13:54 nitrofurantoin AdvReac NAUSEA, Verified 10/24/18 13:54 [From Macrobid] VOMITING prednisone AdvReac SHORTNESS Verified 10/24/18 13:54 OF BREATH All systems ED: reviewed and negative except as stated. Review of Systems: As Per HPI Constitutional: Reports: fever, chills, weakness Cardiovascular: Reports: dyspnea on exertion. Denies: chest pain, palpitations Respiratory: Reports: cough, dyspnea. Denies: wheezes, sputum production Gastrointestinal: Denies: abdominal pain, nausea, vomiting Genitourinary: Denies: dysuria Musculoskeletal: Denies: back pain, neck pain Integumentary: Denies: rash Neurological: Denies: headache Endocrine: Denies: fatigue Past Medical History - Past Medical History Attestation: Yes The following information was validated with the patient. Source: patient Medical history: Reports: arthritis, cancer, GERD, hypertension Surgical history: Reports: cholecystectomy, other Psychiatric history: Reports: anxiety, depression - Social History Smoking Status: Current every day smoker Smokeless Tobacco Status: No Alcohol use: Reports: rarely Drug use: Reports: none Physical Exam - General Limitations: no limitations General appearance: alert, in no apparent distress - Head Head exam: atraumatic, normocephalic - Eye Eye exam: Present: normal appearance, EOMI - ENT ENT exam: normal exam, normal oropharynx - Chest Chest inspection: Present: normal inspection. Absent: tenderness, rash - Respiratory Respiratory exam: Present: wheezes (end expiratory wheezes heard bilaterally), other (bilateral rhonchi) - Cardiovascular Cardiovascular exam: Present: regular rate, normal rhythm - Abdominal Exam Abdominal exam: Present: soft, Non-Tender. Absent: distention, guarding, rebound, rigidity - Extremities Exam Extremities exam: Present: normal inspection. Absent: tenderness, pedal edema - Neurological Exam Neurological exam: Present: alert, oriented X3 - Psychiatric Psychiatric exam: Present: normal affect, normal mood - Skin Skin exam: Present: warm, dry, intact Course Vital Signs Temperature 98.6 F 02/21/19 13:01 Pulse Rate 74 02/21/19 13:01 Respiratory Rate 18 02/21/19 13:01 Blood Pressure 137/68 02/21/19 13:01 O2 Sat by Pulse Oximetry 98 02/21/19 13:01 Temperature 98.6 F 02/21/19 13:01 Pulse Rate 80 02/21/19 15:30 Respiratory Rate 22 02/21/19 15:30 Blood Pressure 136/62 02/21/19 15:30 O2 Sat by Pulse Oximetry 89 02/21/19 15:30 Oxygen Delivery Oxygen Delivery Room Air Shortness of Breath/Dyspnea - [facility] Narrative Medical decision making narrative: Patient presents with cough, difficulty breathing and fevers for the past 3 concerning for pneumonia. We will obtain EKG, basic labs and chest x-ray for further evaluation of this patient. 1408 - patient's EKG does not demonstrate any concerns for acute ischemia. Chest x-ray is read by radiologist reveals no acute cardiopulmonary process with postop changes but upon looking at it myself there does appear to be a right- sided consolidation suspicious for pneumonia. Awaiting the patient's labs at this time. 1440 - pts labs show an elevated troponin of 0.05 and BNP of 370. WBC is 25.6. She clinically appears to have a pneumonia but PE cannot be ruled out, however she is allergic to IV contrast. We will obtain a CT scan of the chest without contrast to look for signs of pneumonia and plan to admit to the hospital for further cardiac workup. Pt has been given aspirin for her trop. 1540 - CT scan of the chest shows a possible metastatic lesion in her right lung with stable pleural effusions. Pt has been accepted to the hospital by Dr Bennett for treatment of a developing pneumonia and IR biopsy of the lung nodule. Levaquin will be administered here in the ED. - Medical Records Medical records reviewed: Yes I reviewed the patient's medical records. - Lab Data Lab results reviewed: Yes I reviewed the patient's lab results. Result diagrams: 02/21/19 13:32 02/21/19 13:32 Lab Results 02/21/19 02/21/19 02/21/19 Range/Units 13:32 13:32 13:32 WBC 25.6 H (4.3-11.1) K/mcL RBC 4.24 (3.82-4.97) M/mcL Hgb 12.9 (11.5-15.4) g/dL Hct 40.5 (35.3-44.9) % MCV 95.5 (83.0-100.0) fL MCH 30.4 (28.0-33.3) pg MCHC 31.9 (31.6-35.5) g/dL RDW 13.3 (11.5-14.5) % Plt Count 241 (140-400) K/mcL MPV 11.0 (9.4-12.4) fL Seg Neutrophils % 82.0 % Band Neutrophils % 4.0 (0-4) % Lymphocytes % 6.0 % Monocytes % 4.0 % Eosinophils % 4.0 % Neutrophils # 22.0 H (1.6-8.9) K/mcL Lymphocytes # 1.5 (0.6-4.6) K/mcL Monocytes # 1.0 (0.0-1.3) K/mcL Eosinophils # 1.0 H (0.0-0.6) K/mcL Toxic Granulation Present A (Not Present) Platelet Estimate Normal (Normal) Stomatocytes 1+ A (Not Present) Sodium 134 L (136-145) mEq/L Potassium 4.5 (3.5-5.1) mEq/L Chloride 99 (98-107) mEq/L Carbon Dioxide 28 (23-29) mEq/L BUN 8 (8-23) mg/dL Creatinine 0.79 (0.60-1.20) mg/dL Est GFR ( Amer) > 60 (> 60) Est GFR (Non-Af Amer) > 60 (> 60) BUN/Creatinine Ratio 10 (6-26) Glucose 111 H (70-105) mg/dL Calculated Osmolality 277 L (280-300) Lactic Acid 0.9 (0.5-2.2) mmol/L Calcium 9.4 (8.6-10.3) mg/dL Magnesium (1.6-2.6) mg/dL Troponin I 0.05 H* (< 0.04) ng/mL B-Natriuretic Peptide (Less than 100) pg/mL 02/21/19 02/21/19 Range/Units 13:32 13:32 WBC (4.3-11.1) K/mcL RBC (3.82-4.97) M/mcL Hgb (11.5-15.4) g/dL Hct (35.3-44.9) % MCV (83.0-100.0) fL MCH (28.0-33.3) pg MCHC (31.6-35.5) g/dL RDW (11.5-14.5) % Plt Count (140-400) K/mcL MPV (9.4-12.4) fL Seg Neutrophils % % Band Neutrophils % (0-4) % Lymphocytes % % Monocytes % % Eosinophils % % Neutrophils # (1.6-8.9) K/mcL Lymphocytes # (0.6-4.6) K/mcL Monocytes # (0.0-1.3) K/mcL Eosinophils # (0.0-0.6) K/mcL Toxic Granulation (Not Present) Platelet Estimate (Normal) Stomatocytes (Not Present) Sodium (136-145) mEq/L Potassium (3.5-5.1) mEq/L Chloride (98-107) mEq/L Carbon Dioxide (23-29) mEq/L BUN (8-23) mg/dL Creatinine (0.60-1.20) mg/dL Est GFR ( Amer) (> 60) Est GFR (Non-Af Amer) (> 60) BUN/Creatinine Ratio (6-26) Glucose (70-105) mg/dL Calculated Osmolality (280-300) Lactic Acid (0.5-2.2) mmol/L Calcium (8.6-10.3) mg/dL Magnesium 1.8 (1.6-2.6) mg/dL Troponin I (< 0.04) ng/mL B-Natriuretic Peptide 379 H (Less than 100) pg/mL - Radiology Data Radiology results reviewed: Yes I reviewed the patient's radiology results. - EKG Data EKG attestation: Yes I reviewed and interpreted this EKG. EKG results narrative: EKG obtained at 1303 on Heart rate 25 bpm, [place] interval 160, QRS duration 92, QT 387, QTC 433 Sin[address] rhythm without any ST segment elevations or depressions. T-wave flattening across the lateral and inferior leads. No other acute abnormalities. No old EKG for comparison.
[2019-02-21 13:46] LABS: Hemoglobin 12.9 g/dL (11.5-15.4); Mean Corpuscular HGB Conc 31.9 g/dL (31.6-35.5)
[2019-02-21 13:48] LABS: Hematocrit 40.5 % (35.3-44.9); Mean Corpuscular Hemoglobin 30.4 pg (28.0-33.3); Mean Corpuscular Volume 95.5 fL (83.0-100.0); Platelet Count 241 K/mcL (140-400); Red Blood Count 4.24 M/mcL (3.82-4.97); Red Cell Distribution Width 13.3 % (11.5-14.5); White Blood Count 25.6 K/mcL (4.3-11.1)
[2019-02-21 14:08] LABS: BUN/Creatinine Ratio 10 (6-26); Blood Urea Nitrogen 8 mg/dL (8-23); Calcium 9.4 mg/dL (8.6-10.3); Carbon Dioxide 28 mEq/L (23-29); Chloride 99 mEq/L (98-107); Glucose 111 mg/dL (70-105); Osmolality,Calculated 277 (280-300); Potassium 4.5 mEq/L (3.5-5.1); Sodium 134 mEq/L (136-145); eGFR For African Americans > 60 (> 60); eGFR For Non-African Americans > 60 (> 60)
[2019-02-21 14:16] LABS: Troponin I 0.05 ng/mL (< 0.04)
[2019-02-21] MEDS ORDERED: Aspirin 81 MG TAB.CHEW PO ONE (14:27)
[2019-02-21 14:50] LABS: Lymphocytes # 1.5 K/mcL (0.6-4.6); Platelet Estimate Normal (Normal); Toxic Granulation Present (Not Present)
[2019-02-21 14:51] LABS: Stomatocytes 1+ (Not Present)
[2019-02-21] MEDS ORDERED: levoFLOXacin 750 MG/150 ML 750 MG/150 ML BAG IVPB ONE (15:39)
--- NOTE | 2019-02-21 15:58 | Emergency Department Note ---
Disposition Clinical Impression: Elevated troponin, Lung nodule, Hypoxia Community acquired pneumonia Qualifiers: Laterality: right Lung location: lower lobe of lung Qualified Code(s): J18.1 - Lobar pneumonia, unspecified organism Disposition: Admitted As Inpatient Time of Disposition: 15:43 General Adult HPI - General Chief complaint: ED Shortness of Breath/Dyspnea Stated complaint: ANA Time Seen by Provider: 02/21/19 13:13 Source: patient, EMS Mode of arrival: EMS Limitations: no limitations - History of Present Illness Pain Scale: 3 - Related Data Home Medications Medication Instructions Recorded Confirmed Furosemide [Lasix] 40 mg PO DAILY 08/18/15 02/21/19 Magnesium Oxide [Magnesium] 400 mg PO DAILY 08/18/15 02/21/19 Pantoprazole Sodium [Protonix] 40 mg PO DAILY 08/18/15 02/21/19 Pnv with Ca,No.72/Iron,Carb/FA 1 tab PO DAILY 08/18/15 02/21/19 [ Plus Iron Tablet] Sodium Chloride [Sodium Chloride 2 gm PO QAM 08/18/15 02/21/19 Tab] Tizanidine HCl 4 mg PO Q8HR PRN 08/18/15 02/21/19 Trazodone HCl 150 mg PO HS 08/18/15 02/21/19 Meclizine HCl [Verticalm] 25 mg PO DAILY PRN 01/20/18 02/21/19 Albuterol Sulfate [Albuterol 2 puff IH Q4H PRN 06/24/18 02/21/19 Inhaler] Azelastine 0.1% Nasal [place] 2 spray NS BID PRN 07/03/18 02/21/19 [Astelin] Butalbital/Aspirin/Caffeine 2 cap PO DAILY PRN 07/03/18 02/21/19 [Xxxurbzynh-RTW-Hgatvxts Cap] Cetirizine HCl [Zyrtec] 10 mg PO DAILY 07/03/18 02/21/19 Diphenoxylate/Atropine [Lomotil 3 tab PO QAM PRN 07/03/18 02/21/19 2.5 mg/0.025 mg] Ibuprofen [Ibu] 800 mg PO BID PRN 07/03/18 02/21/19 Promethazine [Phenergan] 25 mg PO DAILY PRN 07/03/18 02/21/19 clonazePAM [Clonazepam] 1 mg PO TID 07/03/18 02/21/19 Propranolol HCl [Innopran Xl] 80 mg PO DAILY 07/09/18 02/21/19 Nicotine Patch [Nicoderm] 14 mg TD DAILY 02/21/19 02/21/19 Potassium Chloride [Klor-Con 10] 10 meq PO DAILY 02/21/19 02/21/19 Spironolactone 25 mg PO DAILY 02/21/19 02/21/19 Allergies Allergy/AdvReac Type Severity Reaction Status Date / Time acetaminophen Allergy Nausea Verified 10/24/18 13:54 [From Tylenol-Codeine #3] codeine Allergy Nausea Verified 10/24/18 13:54 [From Tylenol-Codeine #3] Amoxicillin AdvReac Itching Verified 10/24/18 13:54 clavulanic acid AdvReac Nausea Verified 10/24/18 13:54 [From Augmentin] clindamycin AdvReac NAUSEA, Verified 10/24/18 13:54 VOMITING doxycycline AdvReac NAUSEA, Verified 10/24/18 13:54 DIARRHEA guaifenesin [From Mucinex] AdvReac See Verified 10/24/18 13:54 Comments hydrocodone [From Vicodin] AdvReac Itching Verified 10/24/18 13:54 Iodinated Contrast Media AdvReac Rash Verified 10/24/18 13:54 metoclopramide [From Reglan] AdvReac Itching Verified 10/24/18 13:54 nitrofurantoin AdvReac NAUSEA, Verified 10/24/18 13:54 [From Macrobid] VOMITING prednisone AdvReac SHORTNESS Verified 10/24/18 13:54 OF BREATH Constitutional: Reports: fever, chills, weakness Cardiovascular: Reports: dyspnea on exertion. Denies: chest pain, palpitations Respiratory: Reports: cough, dyspnea. Denies: wheezes, sputum production Gastrointestinal: Denies: abdominal pain, nausea, vomiting Genitourinary: Denies: dysuria Musculoskeletal: Denies: back pain, neck pain Integumentary: Denies: rash Neurological: Denies: headache Endocrine: Denies: fatigue Past Medical History - Past Medical History Medical history: Reports: arthritis, cancer, GERD, hypertension Surgical history: Reports: cholecystectomy, other Psychiatric history: Reports: anxiety, depression - Social History Smoking Status: Current every day smoker Smokeless Tobacco Status: No Alcohol use: Reports: rarely Drug use: Reports: none Physical Exam - General Limitations: no limitations General appearance: alert, in no apparent distress Course Vital Signs Temperature 98.6 F 02/21/19 13:01 Pulse Rate 74 02/21/19 13:01 Respiratory Rate 18 02/21/19 13:01 Blood Pressure 137/68 02/21/19 13:01 O2 Sat by Pulse Oximetry 98 02/21/19 13:01 Temperature 97.3 F L 02/22/19 15:36 Pulse Rate 63 02/22/19 15:36 Respiratory Rate 15 02/22/19 15:36 Blood Pressure 108/59 02/22/19 15:36 O2 Sat by Pulse Oximetry 96 02/22/19 15:36 Oxygen Delivery Oxygen Delivery Nasal Cannula Medical Decision Making - Lab Data Result diagrams: 02/22/19 03:27 02/22/19 03:27 Lab Results 02/21/19 02/21/19 02/21/19 Range/Units 13:32 13:32 13:32 WBC 25.6 H (4.3-11.1) K/mcL RBC 4.24 (3.82-4.97) M/mcL Hgb 12.9 (11.5-15.4) g/dL Hct 40.5 (35.3-44.9) % MCV 95.5 (83.0-100.0) fL MCH 30.4 (28.0-33.3) pg MCHC 31.9 (31.6-35.5) g/dL RDW 13.3 (11.5-14.5) % Plt Count 241 (140-400) K/mcL MPV 11.0 (9.4-12.4) fL Seg Neutrophils % 82.0 % Band Neutrophils % 4.0 (0-4) % Lymphocytes % 6.0 % Monocytes % 4.0 % Eosinophils % 4.0 % Neutrophils # 22.0 H (1.6-8.9) K/mcL Lymphocytes # 1.5 (0.6-4.6) K/mcL Monocytes # 1.0 (0.0-1.3) K/mcL Eosinophils # 1.0 H (0.0-0.6) K/mcL Toxic Granulation Present A (Not Present) Platelet Estimate Normal (Normal) Stomatocytes 1+ A (Not Present) Sodium 134 L (136-145) mEq/L Potassium 4.5 (3.5-5.1) mEq/L Chloride 99 (98-107) mEq/L Carbon Dioxide 28 (23-29) mEq/L BUN 8 (8-23) mg/dL Creatinine 0.79 (0.60-1.20) mg/dL Est GFR ( Amer) > 60 (> 60) Est GFR (Non-Af Amer) > 60 (> 60) BUN/Creatinine Ratio 10 (6-26) Glucose 111 H (70-105) mg/dL Calculated Osmolality 277 L (280-300) Lactic Acid 0.9 (0.5-2.2) mmol/L Calcium 9.4 (8.6-10.3) mg/dL Magnesium (1.6-2.6) mg/dL Troponin I 0.05 H* (< 0.04) ng/mL B-Natriuretic Peptide (Less than 100) pg/mL 02/21/19 02/21/19 Range/Units 13:32 13:32 WBC (4.3-11.1) K/mcL RBC (3.82-4.97) M/mcL Hgb (11.5-15.4) g/dL Hct (35.3-44.9) % MCV (83.0-100.0) fL MCH (28.0-33.3) pg MCHC (31.6-35.5) g/dL RDW (11.5-14.5) % Plt Count (140-400) K/mcL MPV (9.4-12.4) fL Seg Neutrophils % % Band Neutrophils % (0-4) % Lymphocytes % % Monocytes % % Eosinophils % % Neutrophils # (1.6-8.9) K/mcL Lymphocytes # (0.6-4.6) K/mcL Monocytes # (0.0-1.3) K/mcL Eosinophils # (0.0-0.6) K/mcL Toxic Granulation (Not Present) Platelet Estimate (Normal) Stomatocytes (Not Present) Sodium (136-145) mEq/L Potassium (3.5-5.1) mEq/L Chloride (98-107) mEq/L Carbon Dioxide (23-29) mEq/L BUN (8-23) mg/dL Creatinine (0.60-1.20) mg/dL Est GFR ( Amer) (> 60) Est GFR (Non-Af Amer) (> 60) BUN/Creatinine Ratio (6-26) Glucose (70-105) mg/dL Calculated Osmolality (280-300) Lactic Acid (0.5-2.2) mmol/L Calcium (8.6-10.3) mg/dL Magnesium 1.8 (1.6-2.6) mg/dL Troponin I (< 0.04) ng/mL B-Natriuretic Peptide 379 H (Less than 100) pg/mL Attestation Statement - Attestation Attestation: I examined this patient and my medical decision-making was reviewed with the Resident Physician. I agree with the documented findings, disposition and treatment plan as described except to the extent set forth below. Patient said [id number] female that presents to emergency department with chief complaint of shortness of breath. Patient reports she has prior history of a partial lung resection and stated that she has been undergoing CT scans and a surveillance standpoint to evaluate for possible recurrence. The patient states that she started getting more and more short of breath has been wheezing some the patient states she has also had a cough with all of this has been going on for several days. Physical exam patient is awake alert no acute distress Medical decision management CT scan showed evidence of a new mass in the chest in comparison to previous studies it does appear that this may have been developing and it had not been officially reported by radiology. The case was discussed with the hospitalist the patient will be admitted to the hospital I personally supervised and was present for the roberts/critical portions of the following procedures completed by the resident:EKG.
[2019-02-21] MEDS ORDERED: Naloxone 0.4 MG/ML INJ IVP PRN (17:17)
--- NOTE | 2019-02-21 17:49 | Internal Med History&Physical ---
Date of Encounter: 02/21/19 Time of Encounter: 17:42 Internal Medicine - H&P: HPI Chief complaint: Shortness or breath Admitted From: Home Plans for Post Hospital Care: Home History of present illness: Ms. Mcfarland is a 63 year old female with past medical history of Kartagener's Syndrome, COPD, hypertension, arthritis, history of lung cancer status post resection, GERD and still occurring every day smoker. She presented with worsening shortness of breath of a week's duration. She went to see her PCP this morning and was informed to report to the ED for admission. Patient admits that she has also been coughing with sputum production and associated fever and chills. She began coughing a week ago. It was initially unproductive but later became productive of yellow sputum. She states that fever and chills have been going on for the last 48 hours. Patient denies chest pain, palpitations and lightheadedness. She states that she follows with an oncologist as outpatient due to her history of lung cancer. Her last CT scan was a month ago. Past Med Surg Social Fam HX - Past Medical History Medical history: arthritis, cancer, GERD, hypertension Additional medical history: IBS, MRSA, lung nodule, R Lung CA Psychiatric history: anxiety, depression - Past Surgical History Surgical History: cholecystectomy, other Additional surgical history: R Lung Lobectomy, right hip sx - Social History Smoking Status: Former smoker Smokeless Tobacco Status: No Alcohol use: rarely Drug use: none - Family History Father Name: Wilian Butterfield . Family Member Ethnicity: Non- Living Status: Age at : 82 Hx Family Cardiac Disorders: Yes (DC) Hx Family Respiratory Disorders: Yes (COPD) Mother Name: Chantelle Slaughter Age: 80 Living Status: Still Living Hx Family Cardiac Disorders: Yes (hypertension) Internal Medicine - H&P: Meds Furosemide [Lasix] 40 mg PO DAILY 08/18/15 [History] Magnesium Oxide [Magnesium] 400 mg PO DAILY 08/18/15 [History] Pantoprazole Sodium [Protonix] 40 mg PO DAILY 08/18/15 [History] Pnv with Ca,No.72/Iron,Carb/FA [ Plus Iron Tablet] 1 each PO DAILY 08/18/15 [History] Potassium Chloride 10 meq PO BID 08/18/15 [History] Sodium Chloride [Sodium Chloride Tab] 2 gm PO DAILY 08/18/15 [History] Spironolactone [Aldactone] 25 mg PO DAILY 08/18/15 [History] Tizanidine HCl 4 mg PO Q8HR PRN 08/18/15 [History] Trazodone HCl 150 mg PO HS 08/18/15 [History] Meclizine HCl [Verticalm] 25 mg PO DAILY PRN 01/20/18 [History] Albuterol Sulfate [Albuterol Inhaler] 2 puff IH Q4H PRN 06/24/18 [History] Azelastine 0.1% Nasal [place] [Astelin] 2 spray NS BID PRN 07/03/18 [History] Butalbital/Aspirin/Caffeine [Bpynsxtuyp-BXO-Oiapegpg Cap] 2 cap PO DAILY PRN [History] Cetirizine HCl [Zyrtec] 10 mg PO DAILY 07/03/18 [History] Diphenoxylate/Atropine [Lomotil 2.5 mg/0.025 mg] 2 tab PO DAILY PRN 07/03/18 [History] Ibuprofen [Ibu] 800 mg PO DAILY PRN 07/03/18 [History] Promethazine [Phenergan] 25 mg PO DAILY PRN 07/03/18 [History] clonazePAM [Clonazepam] 1 mg PO TID 07/03/18 [History] Propranolol HCl [Innopran Xl] 80 mg PO DAILY 07/09/18 [History] Nicotine Patch 14 mg TD DAILY 02/21/19 [History] Allergy/AdvReac Type Severity Reaction Status Date / Time acetaminophen Allergy Nausea Verified 10/24/18 13:54 [From Tylenol-Codeine #3] codeine Allergy Nausea Verified 10/24/18 13:54 [From Tylenol-Codeine #3] Amoxicillin AdvReac Itching Verified 10/24/18 13:54 clavulanic acid AdvReac Nausea Verified 10/24/18 13:54 [From Augmentin] clindamycin AdvReac NAUSEA, Verified 10/24/18 13:54 VOMITING doxycycline AdvReac NAUSEA, Verified 10/24/18 13:54 DIARRHEA guaifenesin [From Mucinex] AdvReac See Verified 10/24/18 13:54 Comments hydrocodone [From Vicodin] AdvReac Itching Verified 10/24/18 13:54 Iodinated Contrast Media AdvReac Rash Verified 10/24/18 13:54 metoclopramide [From Reglan] AdvReac Itching Verified 10/24/18 13:54 nitrofurantoin AdvReac NAUSEA, Verified 10/24/18 13:54 [From Macrobid] VOMITING prednisone AdvReac SHORTNESS Verified 10/24/18 13:54 OF BREATH All Systems PM: A 10-system review of systems was performed and is negative for pertinent findings except as documented above in the HPI. Review of systems: GENERAL: Admits fever and chills HEENT: No rhinorrhea, No sore throat, No ear pain or discharge, No dysphagia or odynophagia PULMONARY: No chest pain CARDIOVASCULAR: No chest pain, no palpitations, No PND, No orthopnea GASTROINTESTINAL: No abdominal pain, admits nausea, No vomiting, No constipation, No diarrhea, No hematemesis, No hematochezia MUSKULOSKELETAL: No edema, No swelling, No pain INTEGUMENTARY: No new skin lesions NERVOUS SYSTEM: No Dizziness, No weakness, No slurred speech, No diplopia or blurred/ loss vision, No numbness, No tinglng sensation. - Constitutional Vitals: Temp Pulse Resp BP Pulse Ox 36.7 C 78 18 160/89 96 02/21/19 16:50 02/21/19 16:50 02/21/19 16:50 02/21/19 16:50 02/21/19 16:50 Exam: GENERAL: Mild respiratory distress. Alert and Oriented HEENT: EOMI, PERRLA MOUTH: Moist oral mucosa NECK:No JVD, No lymph nodes. CHEST AND LUNGS: Bilateral wheezes, transmitted sounds but good air entry HEART: S1 and S2 normal but located on the right side of the chest. No murmurs ABDOMEN: Soft, nontender, no organomegaly SKIN: Normal color, no rahses, no lesions EXTREMITIES: No deformity, no edema, no tenderness, no joint swelling or c lubbing NEUROLOGICAL: Normal cognition, normal motor and sensory exam. Internal Med - H&P Results - Labs CBC & Chem 7: 02/21/19 13:32 02/21/19 13:32 Labs: Short CBC 02/21/19 Range/Units 13:32 WBC 25.6 H (4.3-11.1) K/mcL Hgb 12.9 (11.5-15.4) g/dL Hct 40.5 (35.3-44.9) % Plt Count 241 (140-400) K/mcL Neutrophils # 22.0 H (1.6-8.9) K/mcL BMP 02/21/19 13:32 Sodium 134 L Potassium 4.5 Chloride 99 Carbon Dioxide 28 BUN 8 Creatinine 0.79 Glucose 111 H Calcium 9.4 Cardiac Enzymes 02/21/19 Range/Units 13:32 Troponin I 0.05 H* (< 0.04) ng/mL - Impressions ITS Impressions Chest X-Ray 02/21/19 13:14 IMPRESSION: 1. No acute cardiopulmonary disease. 2. Stable postsurgical changes in the right hemithorax with right base opacity and rightward shift of the cardiomediastinal silhouette. D/ / 02/21/2019 14:02:16 Gaby Chaidez MD / [email or web address] Interpreting Provider: Gaby Chaidez MD Chest CT 02/21/19 14:27 IMPRESSION: Enlarging pleural/chest wall mass anterolateral aspect superior right hemithorax worrisome for metastatic disease. CT-guided biopsy for definitive diagnosis should be considered. 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 D/ / 02/21/2019 15:31:16 Camden Win MD / [email or web address] Interpreting Provider: Camden Win MD - Assessment and Plan (1) Acute respiratory failure with hypoxia Current Visit: Yes Status: Acute Assessment and plan: Patient presented with shortness of breath and required 2 L of oxygen by nasal cannula to maintain a saturation above 89%. She does not use oxygen at home. We will treat suspected underlying pneumonia and COPD exacerbation. Titrate oxygen Monitor (2) Community acquired pneumonia Current Visit: Yes Status: Acute Assessment and plan: Patient presented with a weeks duration of shortness of breath with productive sputum, fever and chills. WBC 25 with predominant neutrophils. Vitals stable Heart reveals a chest CT scan and compared with last month CT there is a stable right pleural effusion but this may however be concealing a possible consolidation in the right lower lobe. Based on clinical presentation will manage patient has community-acquired pneumonia. Was given a dose of IV Levaquin in the ED We will continue Levaquin 750mg daily Qualifiers: Laterality: right Lung location: lower lobe of lung Qualified Code(s): J18.1 - Lobar pneumonia, unspecified organism (3) COPD exacerbation Current Visit: Yes Status: Acute Assessment and plan: Patient has a history of COPD and still currently smokes. Bilateral wheezes on exam. We will give breathing treatments as needed (4) Obesity Current Visit: Yes Status: Acute Assessment and plan: Patient counseled on weight loss options. Qualifiers: Obesity type: due to excess calories Obesity classification: adult class 1 (BMI 30 - 34.9) Serious obesity comorbidity presence: without serious comorbidity Body mass index: BMI 30.0-30.9 Qualified Code(s): E66.09 - Other obesity due to excess calories; Z68.30 - Body mass index (BMI) 30.0-30.9, adult (5) Elevated troponin Current Visit: Yes Status: Acute Assessment and plan: Presented with troponin of 0.05. Patient denies chest pain EKG shows some Q waves in V6 and lead 1 but no specific ischemic changes observed in the other leads. We will cycle the troponins. Monitor (6) Lung nodule Current Visit: Yes Status: Acute Assessment and plan: Patient has a lung nodule seen on CT scan. This nodule compared to her CT from January does not seem to have grown any larger. Will draw the attention of her oncologist Follow-up as outpatient (7) HTN (hypertension) Current Visit: No Status: Chronic Assessment and plan: Resume Lasix and propranolol Qualifiers: Hypertension type: essential hypertension Qualified Code(s): I10 - Essential (primary) hypertension (8) Tobacco abuse Current Visit: Yes Status: Acute Assessment and plan: Patient is an every day smoker. Nicotine patch [employer] on available options to quit smoking. (9) DVT prophylaxis Current Visit: No Status: Acute Assessment and plan: Subcutaneous heparin - Time Spent With Patient Total time spent is greater than 50% in coordination of care (as documented) at patient's floor/unit and/or counseling patient:
[2019-02-21] MEDS ORDERED: Acetaminophen 325 MG TABLET PO ONE (17:51)
[2019-02-21] MEDS: Furosemide 40 MG TABLET PO SCH (18:08)
[2019-02-21] MEDS: Nicotine 14 MG PATCH.TD24 TD SCH (18:08)
[2019-02-21] MEDS: Ipratropium/Albuterol Neb 3 ML IH PRN (19:26)
[2019-02-21] MEDS: Acetylcysteine 10% 2 ML INHSOL IH PRN (19:27)
[2019-02-21] MEDS: clonazePAM 1 MG TABLET PO SCH (19:44)
[2019-02-21] MEDS: traZODone 50 MG TABLET PO SCH (19:44)
[2019-02-21] MEDS: *HR* Heparin 5,000 UNIT/ML VIAL SQ SCH (23:55)
[2019-02-22] MEDS: Ipratropium/Albuterol Neb 3 ML IH PRN ×2 (00:12→03:41)
[2019-02-22 03:40] LABS: Basophils # 0.1 K/mcL (0.0-0.2); Basophils % 0.4 %; Eosinophils # 0.5 K/mcL (0.0-0.6); Eosinophils % 3.7 %; Hematocrit 36.4 % (35.3-44.9); Hemoglobin 11.7 g/dL (11.5-15.4); Immature Granulocytes % 0.4 % (0-4); Lymphocytes # 1.7 K/mcL (0.6-4.6); Lymphocytes % 11.8 %; Mean Corpuscular HGB Conc 32.1 g/dL (31.6-35.5); Mean Corpuscular Hemoglobin 30.6 pg (28.0-33.3); Mean Corpuscular Volume 95.3 fL (83.0-100.0); Monocytes # 1.1 K/mcL (0.0-1.3); Monocytes % 8.1 %; Neutrophils # 10.6 K/mcL (1.6-8.9); Platelet Count 167 K/mcL (140-400); Red Blood Count 3.82 M/mcL (3.82-4.97); Red Cell Distribution Width 13.2 % (11.5-14.5); Segmented Neutrophils % 75.6 %; White Blood Count 14.1 K/mcL (4.3-11.1)
[2019-02-22] MEDS: Acetylcysteine 10% 2 ML INHSOL IH PRN (03:41)
[2019-02-22 04:02] LABS: BUN/Creatinine Ratio 13 (6-26); Blood Urea Nitrogen 11 mg/dL (8-23); Calcium 8.7 mg/dL (8.6-10.3); Carbon Dioxide 27 mEq/L (23-29); Chloride 99 mEq/L (98-107); Glucose 97 mg/dL (70-105); Osmolality,Calculated 279 (280-300); Potassium 4.1 mEq/L (3.5-5.1); Sodium 135 mEq/L (136-145); eGFR For African Americans > 60 (> 60); eGFR For Non-African Americans > 60 (> 60)
[2019-02-22] MEDS: Propranolol LA (24 HR) 80 MG CAP.SA.24H PO SCH (08:06)
[2019-02-22] MEDS: *HR* Heparin 5,000 UNIT/ML VIAL SQ SCH ×2 (08:06→16:59)
[2019-02-22] MEDS: Loratadine 10 MG TABLET PO SCH (08:06)
[2019-02-22] MEDS: levoFLOXacin 750 MG/150 ML 750 MG/150 ML BAG IVPB SCH (08:06)
[2019-02-22] MEDS: Furosemide 40 MG TABLET PO SCH (08:06)
[2019-02-22] MEDS: Nicotine 14 MG PATCH.TD24 TD SCH (08:07)
[2019-02-22] MEDS: Acetaminophen 325 MG TABLET PO PRN (10:17)
[2019-02-22] MEDS: Diphenoxylate/Atropine 1 TAB TABLET PO SCH (10:17)
--- NOTE | 2019-02-22 12:46 | Internal Med Progress Note ---
Hospitalist Progress Note - Encounter Date of Encounter: 02/22/19 Time of Encounter: 07:20 - Subjective Interval History: Patient with a hx of Kartagener Syndrome, Recurrent PNAs, Lung Ca s/p resection and COPD. She presented with SOB, productive cough fever, chills and Leukocytosis. She state that she has noticed a slight improvement in her SOB and denies fever and chills overnight. - Exam Vitals: Temp Pulse Resp BP Pulse Ox 36.8 C 66 15 120/53 96 02/22/19 10:58 02/22/19 10:58 02/22/19 10:58 02/22/19 10:58 02/22/19 10:58 Exam: GENERAL: Not in distress. Alert and Oriented HEENT: EOMI, PERRLA MOUTH: Moist oral mucosa NECK:No JVD, No lymph nodes. CHEST AND LUNGS: Less wheexing compared to yesterday, transmitted sounds but good air entry HEART: S1 and S2 normal but located on the right side of the chest. No murmurs ABDOMEN: Soft, nontender, no organomegaly SKIN: Normal color, no rahses, no lesions EXTREMITIES: No deformity, no edema, no tenderness, no joint swelling or clubbing NEUROLOGICAL: Normal cognition, normal motor and sensory exam. - Assessment and Plan (1) Acute respiratory failure with hypoxia Current Visit: Yes Status: Acute Assessment and Plan: Patient remains on 2L of O2 via NC. She notes some improvement in SOB. Will continue to manage underlying PNA and try to wean off O2. (2) Community acquired pneumonia Current Visit: Yes Status: Acute Assessment and Plan: WBC 14.1< 25.6. No fever or chills overnight Continue IV antibiotics. Will monitor. (3) COPD exacerbation Current Visit: Yes Status: Acute Assessment and Plan: Less wheezing compared to yesterday. Continue breathing treatments. (4) Obesity Current Visit: Yes Status: Acute Assessment and Plan: Patient counseled on weight loss options. (5) Elevated troponin Current Visit: Yes Status: Acute Assessment and Plan: Troponin 0.05<0.04 Patient denies CP and states her OSB is improving. Troponin elevation likely demand related. Will continue to monitor (6) Lung nodule Current Visit: Yes Status: Acute Assessment and Plan: Patient has a lung nodule seen on CT scan. It os peripherally located. This nodule compared to her CT from January does not seem to have grown any larger. Will draw the attention of her oncologist Follow-up as outpatient (7) HTN (hypertension) Current Visit: No Status: Chronic Assessment and Plan: Resume Lasix and propranolol (8) Tobacco abuse Current Visit: Yes Status: Acute Assessment and Plan: Patient is an every day smoker. Nicotine patch [employer] on available options to quit smoking. (9) DVT prophylaxis Current Visit: No Status: Acute Assessment and Plan: Subcutaneous heparin DVT Prophylaxis: SQ Heparin - Time Spent with Patient Total time spent is greater than 50% in coordination of care (as documented) at patient's floor/unit and/or counseling patient: Internal Medicine: Result - Labs CBC & Chem 7: 02/22/19 03:27 02/22/19 03:27 Labs: Short CBC 02/21/19 02/22/19 Range/Units 13:32 03:27 WBC 25.6 H 14.1 H (4.3-11.1) K/mcL Hgb 12.9 11.7 (11.5-15.4) g/dL Hct 40.5 36.4 (35.3-44.9) % Plt Count 241 167 (140-400) K/mcL Neutrophils # 22.0 H 10.6 H (1.6-8.9) K/mcL BMP 02/21/19 02/22/19 13:32 03:27 Sodium 134 L 135 L Potassium 4.5 4.1 Chloride 99 99 Carbon Dioxide 28 27 BUN 8 11 Creatinine 0.79 0.86 Glucose 111 H 97 Calcium 9.4 8.7 Cardiac Enzymes 02/21/19 02/21/19 Range/Units 13:32 18:33 Troponin I 0.05 H* 0.04 H* (< 0.04) ng/mL - Impressions Impressions Chest X-Ray 02/21/19 13:14 IMPRESSION: 1. No acute cardiopulmonary disease. 2. Stable postsurgical changes in the right hemithorax with right base opacity and rightward shift of the cardiomediastinal silhouette. D/ / 02/21/2019 14:02:16 Gaby Chaidez MD / [email or web address] Interpreting Provider: Gaby Chaidez MD Chest CT 02/21/19 14:27 IMPRESSION: Enlarging pleural/chest wall mass anterolateral aspect superior right hemithorax worrisome for metastatic disease. CT-guided biopsy for definitive diagnosis should be considered. 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 D/ / 02/21/2019 15:31:16 Camden Win MD / [email or web address] Interpreting Provider: Camden Win MD Consult Discharge Plan - Plan Referrals: Nelson Tolentino MD [Primary Care Provider] - (2) Community acquired pneumonia Qualifiers: Laterality: right Lung location: lower lobe of lung Qualified Code(s): J18.1 - Lobar pneumonia, unspecified organism (4) Obesity Qualifiers: Obesity type: due to excess calories Obesity classification: adult class 1 (BMI 30 - 34.9) Serious obesity comorbidity presence: without serious mike rbidity Body mass index: BMI 30.0-30.9 Qualified Code(s): E66.09 - Other obesity due to excess calories; Z68.30 - Body mass index (BMI) 30.0-30.9, adult (7) HTN (hypertension) Qualifiers: Hypertension type: essential hypertension Qualified Code(s): I10 - Essential (primary) hypertension
[2019-02-22] MEDS: Ipratropium/Albuterol Neb 3 ML IH SCH ×3 (15:33→23:40)
[2019-02-22] MEDS: Acetylcysteine 10% 2 ML INHSOL IH SCH ×3 (15:34→23:40)
[2019-02-22] MEDS: clonazePAM 1 MG TABLET PO SCH (22:15)
[2019-02-22] MEDS: traZODone 50 MG TABLET PO SCH (22:15)
[2019-02-23] MEDS: *HR* Heparin 5,000 UNIT/ML VIAL SQ SCH ×3 (01:02→17:00)
[2019-02-23] MEDS ORDERED: traMADol 50 MG TABLET PO ONE (02:42)
[2019-02-23] MEDS: Acetylcysteine 10% 2 ML INHSOL IH SCH ×6 (03:34→23:51)
[2019-02-23] MEDS: Ipratropium/Albuterol Neb 3 ML IH SCH ×6 (03:34→23:50)
[2019-02-23 04:42] LABS: Basophils % 0.4 %; Eosinophils # 0.4 K/mcL (0.0-0.6); Hematocrit 36.3 % (35.3-44.9); Hemoglobin 11.5 g/dL (11.5-15.4); Immature Granulocytes % 0.6 % (0-4); Lymphocytes # 2.7 K/mcL (0.6-4.6); Lymphocytes % 25.1 %; Mean Corpuscular HGB Conc 31.7 g/dL (31.6-35.5); Mean Corpuscular Hemoglobin 29.8 pg (28.0-33.3); Monocytes # 1.3 K/mcL (0.0-1.3); Monocytes % 11.8 %; Neutrophils # 6.3 K/mcL (1.6-8.9); Platelet Count 174 K/mcL (140-400); Red Blood Count 3.86 M/mcL (3.82-4.97); Red Cell Distribution Width 13.2 % (11.5-14.5); Segmented Neutrophils % 58.1 %; White Blood Count 10.9 K/mcL (4.3-11.1)
[2019-02-23 05:00] LABS: Calcium 9.1 mg/dL (8.6-10.3); Potassium 4.3 mEq/L (3.5-5.1)
[2019-02-23] MEDS: levoFLOXacin 750 MG/150 ML 750 MG/150 ML BAG IVPB SCH (08:17)
[2019-02-23] MEDS: Diphenoxylate/Atropine 1 TAB TABLET PO SCH (08:18)
[2019-02-23] MEDS: Furosemide 40 MG TABLET PO SCH (08:18)
[2019-02-23] MEDS: Spironolactone 25 MG TABLET PO SCH (08:18)
[2019-02-23] MEDS: Loratadine 10 MG TABLET PO SCH (08:19)
[2019-02-23] MEDS: Propranolol LA (24 HR) 80 MG CAP.SA.24H PO SCH (08:19)
[2019-02-23] MEDS: Nicotine 14 MG PATCH.TD24 TD SCH (08:41)
[2019-02-23] MEDS ORDERED: CAFFEINE PO PRN (08:53)
[2019-02-23] MEDS ORDERED: Diphenoxylate/Atropine 1 TAB TABLET PO PRN (08:53)
[2019-02-23] MEDS ORDERED: BUTALBITAL PO PRN (08:53)
[2019-02-23] MEDS ORDERED: ASPIRIN PO PRN (08:53)
[2019-02-23] MEDS: tiZANidine 4 MG TABLET PO PRN (10:38)
[2019-02-23] MEDS: clonazePAM 1 MG TABLET PO SCH ×3 (10:38→21:19)
--- NOTE | 2019-02-23 11:25 | Internal Med Progress Note ---
Hospitalist Progress Note - Encounter Date of Encounter: 02/23/19 Time of Encounter: 08:15 - Subjective Interval History: Patient with Kartagener's syndrome, COPD and recurrent pneumonias. 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 However did not complete her treatment because it was hugo ferguson her sicker. Currently here for the management of pneumonia. She says she is breathing much better and wheezing less. Denies chest pain, fever and chills overnight - Exam Vitals: Temp Pulse Resp BP Pulse Ox 36.8 C 68 17 113/46 94 02/23/19 07:49 02/23/19 07:49 02/23/19 07:49 02/23/19 07:49 02/23/19 07:49 Exam: GENERAL: Not in distress. Alert and Oriented HEENT: EOMI, PERRLA MOUTH: Moist oral mucosa NECK:No JVD, No lymph nodes. CHEST AND LUNGS: Less wheezing compared to yesterday, good air entry HEART: S1 and S2 normal but located on the right side of the chest. No murmurs ABDOMEN: Soft, nontender, no organomegaly SKIN: Normal color, no rahses, no lesions EXTREMITIES: No deformity, no edema, no tenderness, no joint swelling or clubbing NEUROLOGICAL: Normal cognition, normal motor and sensory exam. - Assessment and Plan (1) Acute respiratory failure with hypoxia Current Visit: Yes Status: Acute Assessment and Plan: Patient remains on 2L of O2 via NC. She states that her breathing is better Less wheezing on physical exam Will continue to manage underlying PNA and try to wean off O2. (2) Community acquired pneumonia Current Visit: Yes Status: Acute Assessment and Plan: WBC 11.1 <14.1 No fever or chills overnight Continue IV antibiotics. Blood cultures pending Will monitor. (3) COPD exacerbation Current Visit: Yes Status: Acute Assessment and Plan: Less wheezing compared to yesterday. Continue breathing treatments. (4) Obesity Current Visit: Yes Status: Acute Assessment and Plan: Patient counseled on weight loss options. (5) Elevated troponin Current Visit: Yes Status: Acute Assessment and Plan: Troponin 0.05<0.04 Patient denies CP and states her OSB is improving. Troponin elevation likely demand related. Will continue to monitor (6) Lung nodule Current Visit: Yes Status: Acute Assessment and Plan: Patient has a lung nodule seen on CT scan. It os peripherally located. This nodule compared to her CT from January does not seem to have grown any larger. Will draw the attention of her oncologist Follow-up as outpatient (7) HTN (hypertension) Current Visit: No Status: Chronic Assessment and Plan: Resume Lasix and propranolol (8) Tobacco abuse Current Visit: Yes Status: Acute Assessment and Plan: Patient is an every day smoker. Nicotine patch [employer] on available options to quit smoking. (9) DVT prophylaxis Current Visit: No Status: Acute Assessment and Plan: Subcutaneous heparin - Time Spent with Patient Total time spent is greater than 50% in coordination of care (as documented) at patient's floor/unit and/or counseling patient: Internal Medicine: Result - Labs CBC & Chem 7: 02/23/19 03:56 02/23/19 03:56 Labs: Short CBC 02/23/19 Range/Units 03:56 WBC 10.9 (4.3-11.1) K/mcL Hgb 11.5 (11.5-15.4) g/dL Hct 36.3 (35.3-44.9) % Plt Count 174 (140-400) K/mcL Neutrophils # 6.3 (1.6-8.9) K/mcL BMP 02/23/19 03:56 Sodium 133 L Potassium 4.3 Chloride 96 L Carbon Dioxide 30 H BUN 17 Creatinine 1.13 Glucose 108 H Calcium 9.1 Consult Discharge Plan - Plan Referrals: Nelson Tolentino MD [Primary Care Provider] - (2) Community acquired pneumonia Qualifiers: Laterality: right Lung location: lower lobe of lung Qualified Code(s): J18.1 - Lobar pneumonia, unspecified organism (4) Obesity Qualifiers: Obesity type: due to excess calories Obesity classification: adult class 1 (BMI 30 - 34.9) Serious obesity comorbidity presence: without serious comorbidity Body mass index: BMI 30.0-30.9 Qualified Code(s): E66.09 - Other obesity due to excess calories; Z68.30 - Body mass index (BMI) 30.0-30.9, adult (7) HTN (hypertension) Qualifiers: Hypertension type: essential hypertension Qualified Code(s): I10 - Essential (primary) hypertension
[2019-02-24] MEDS: traZODone 50 MG TABLET PO SCH ×2 (00:14→20:43)
[2019-02-24] MEDS: tiZANidine 4 MG TABLET PO PRN ×3 (00:15→20:43)
[2019-02-24] MEDS: *HR* Heparin 5,000 UNIT/ML VIAL SQ SCH ×3 (00:15→16:17)
[2019-02-24] MEDS: Ipratropium/Albuterol Neb 3 ML IH SCH ×6 (03:48→23:27)
[2019-02-24] MEDS: Acetylcysteine 10% 2 ML INHSOL IH SCH ×6 (03:48→23:27)
[2019-02-24 04:02] LABS: Basophils # 0.1 K/mcL (0.0-0.2); Basophils % 0.5 %; Eosinophils # 0.4 K/mcL (0.0-0.6); Eosinophils % 3.6 %; Hematocrit 33.8 % (35.3-44.9); Immature Granulocytes % 0.6 % (0-4); Lymphocytes % 26.9 %; Mean Corpuscular HGB Conc 32.5 g/dL (31.6-35.5); Mean Corpuscular Hemoglobin 30.3 pg (28.0-33.3); Mean Corpuscular Volume 93.1 fL (83.0-100.0); Mean Platelet Volume 11.4 fL (9.4-12.4); Monocytes # 1.3 K/mcL (0.0-1.3); Monocytes % 11.2 %; Neutrophils # 6.4 K/mcL (1.6-8.9); Platelet Count 161 K/mcL (140-400); Red Blood Count 3.63 M/mcL (3.82-4.97); Red Cell Distribution Width 13.1 % (11.5-14.5); Segmented Neutrophils % 57.2 %; White Blood Count 11.2 K/mcL (4.3-11.1)
[2019-02-24 04:19] LABS: BUN/Creatinine Ratio 17 (6-26); Blood Urea Nitrogen 18 mg/dL (8-23); Calcium 8.8 mg/dL (8.6-10.3); Carbon Dioxide 28 mEq/L (23-29); Chloride 98 mEq/L (98-107); Glucose 113 mg/dL (70-105); Osmolality,Calculated 275 (280-300); Sodium 131 mEq/L (136-145); eGFR For African Americans > 60 (> 60); eGFR For Non-African Americans 51 (> 60)
[2019-02-24] MEDS: clonazePAM 1 MG TABLET PO SCH ×3 (08:51→20:43)
[2019-02-24] MEDS: Loratadine 10 MG TABLET PO SCH (08:53)
[2019-02-24] MEDS: Propranolol LA (24 HR) 80 MG CAP.SA.24H PO SCH (08:53)
[2019-02-24] MEDS: Furosemide 40 MG TABLET PO SCH (08:53)
[2019-02-24] MEDS: Diphenoxylate/Atropine 1 TAB TABLET PO SCH (08:53)
[2019-02-24] MEDS: Nicotine 14 MG PATCH.TD24 TD SCH (08:55)
[2019-02-24] MEDS: Spironolactone 25 MG TABLET PO SCH (08:55)
--- NOTE | 2019-02-24 08:59 | Electrocardiograph Report ---
[address] [place] [id number] Test Date: 2019-02-21 Pat Name: Nicci Mcfarland Department: [id number] Room: 2NE20 Gender: F Senior Windows Systems Administrator: : 1955 Requested By: Millie Terrazas Order Number: [id number] Reading MD: Adithya Roberts Measurements Intervals [place] Rate: 75 P: 157 RI: 168 QRS: 87 QRSD: 92 T: 175 QT: 387 QTc: 433 Interpretive Statements Sinus rhythm Possible left atrial enlargement Probable lateral infarct, age indeterminate Electronically Signed On 02-24-2019 8:57:39 EDT by Adithya Roberts
--- NOTE | 2019-02-24 14:58 | Discharge Summary ---
- NOTES TO OUTPATIENT PROVIDER Notes to Outpatient Provider: Patient has a pulmonary nodule which compared to her previous CTs has been enlarging over the last 4 months. Will require biopsy. Orders not resulted at time of discharge: Pending orders 02/21/19 13:32 Blood Culture [Culture,Blood] [] Routine Date of Encounter: 02/24/19 Time of Encounter: 14:57 - Discharge Diagnosis (1) Acute respiratory failure with hypoxia Priority: Primary Status: Acute (2) Community acquired pneumonia Priority: Secondary Status: Acute Qualifiers: Laterality: right Lung location: lower lobe of lung Qualified Code(s): J18.1 - Lobar pneumonia, unspecified organism (3) COPD exacerbation Priority: Secondary Status: Acute (4) Obesity Priority: Secondary Status: Acute Qualifiers: Obesity type: due to excess calories Obesity classification: adult class 1 (BMI 30 - 34.9) Serious obesity comorbidity presence: without serious comorbidity Body mass index: BMI 30.0-30.9 Qualified Code(s): E66.09 - Other obesity due to excess calories; Z68.30 - Body mass index (BMI) 30.0-30.9, adult (5) Elevated troponin Priority: Secondary Status: Acute (6) Lung nodule Priority: Secondary Status: Acute (7) HTN (hypertension) Priority: Secondary Status: Chronic Qualifiers: Hypertension type: essential hypertension Qualified Code(s): I10 - Essential (primary) hypertension (8) Tobacco abuse Priority: Secondary Status: Acute (9) DVT prophylaxis Priority: Secondary Status: Acute Hospital course: Ms. Mcfarland is a 63 year old female with a PMHx of Kartagener syndrome, COPD (Current everyday smoker), Lung Ca s/p resection and recurrent PNAs who presented with worsening SOB, cough productive of sputum, fever and chills. She was given antibiotivs for pneumonia management and has currently improved. She however also qualified for PRN home oxygen use which we will set her up with. A pulmonary nodule was seen on CT which patient will have to follow up with pulmonology for. She already sees her oncologist regularly as outpatient. Discharge discussed with: patient, nurse, case management - Time Spent with Patient Total time spent providing and/or coordinating discharge services: Time spent: Greater than 30 minutes (45 minutes) - Discharge Medications Prescriptions: New Acetylcysteine 10% 2 ml IH [id number] PRN #20 inhsol PRN Reason: Shortness Of Breath/Wheezing Ipratropium/Albuterol Neb [Duoneb] 3 ml IH [id number] PRN #30 inhsol PRN Reason: Shortness Of Breath/Wheezing Levofloxacin [Levaquin] 750 mg PO DAILY #10 tablet Continued Furosemide [Lasix] 40 mg PO DAILY Trazodone HCl 150 mg PO HS Tizanidine HCl 4 mg PO Q8HR PRN PRN Reason: Muscle Spasm Pnv with Ca,No.72/Iron,Carb/FA [ Plus Iron Tablet] 1 tab PO DAILY Pantoprazole Sodium [Protonix] 40 mg PO DAILY Magnesium Oxide [Magnesium] 400 mg PO DAILY Sodium Chloride [Sodium Chloride Tab] 2 gm PO QAM Meclizine HCl [Verticalm] 25 mg PO DAILY PRN PRN Reason: Vertigo Albuterol Sulfate [Proventil Inhaler] 2 puff IH Q4H PRN PRN Reason: Shortness Of Breath Butalbital/Aspirin/Caffeine [Duvxbothae-CVF-Bkulbook Cap] 2 cap PO DAILY PRN PRN Reason: Headache clonazePAM [Clonazepam] 1 mg PO TID Diphenoxylate/Atropine [Lomotil 2.5 mg/0.025 mg] 3 tab PO QAM PRN PRN Reason: Diarrhea Cetirizine HCl [Zyrtec] 10 mg PO DAILY Ibuprofen [Ibu] 800 mg PO BID PRN PRN Reason: Pain Promethazine [Phenergan] 25 mg PO DAILY PRN PRN Reason: Nausea Azelastine 0.1% Nasal [place] [Astelin] 2 spray NS BID PRN PRN Reason: Allergy Symptoms Propranolol HCl [Innopran Xl] 80 mg PO DAILY Nicotine Patch [Nicoderm] 14 mg TD DAILY Potassium Chloride [Klor-Con 10] 10 meq PO DAILY Spironolactone 25 mg PO DAILY Home Medications: Furosemide [Lasix] 40 mg PO DAILY 08/18/15 [History] Magnesium Oxide [Magnesium] 400 mg PO DAILY 08/18/15 [History] Pantoprazole Sodium [Protonix] 40 mg PO DAILY 08/18/15 [History] Pnv with Ca,No.72/Iron,Carb/FA [ Plus Iron Tablet] 1 tab PO DAILY 08/18/15 [History] Sodium Chloride [Sodium Chloride Tab] 2 gm PO QAM 08/18/15 [History] Tizanidine HCl 4 mg PO Q8HR PRN 08/18/15 [History] Trazodone HCl 150 mg PO HS 08/18/15 [History] Meclizine HCl [Verticalm] 25 mg PO DAILY PRN 01/20/18 [History] Albuterol Sulfate [Proventil Inhaler] 2 puff IH Q4H PRN 06/24/18 [History] Azelastine 0.1% Nasal [place] [Astelin] 2 spray NS BID PRN 07/03/18 [History] Butalbital/Aspirin/Caffeine [Mydmuxirwn-ERU-Vdszmexf Cap] 2 cap PO DAILY PRN 07/03/18 [History] Cetirizine HCl [Zyrtec] 10 mg PO DAILY 07/03/18 [History] Diphenoxylate/Atropine [Lomotil 2.5 mg/0.025 mg] 3 tab PO QAM PRN 07/03/18 [History] Ibuprofen [Ibu] 800 mg PO BID PRN 07/03/18 [History] Promethazine [Phenergan] 25 mg PO DAILY PRN 07/03/18 [History] clonazePAM [Clonazepam] 1 mg PO TID 07/03/18 [History] Propranolol HCl [Innopran Xl] 80 mg PO DAILY 07/09/18 [History] Nicotine Patch [Nicoderm] 14 mg TD DAILY 02/21/19 [History] Potassium Chloride [Klor-Con 10] 10 meq PO DAILY 02/21/19 [History] Spironolactone 25 mg PO DAILY 02/21/19 [History] Acetylcysteine 10% 2 ml IH [id number] PRN #20 inhsol 02/24/19 [Rx] Ipratropium/Albuterol Neb [Duoneb] 3 ml IH [id number] PRN #30 inhsol 02/24/19 [Rx] Levofloxacin [Levaquin] 750 mg PO DAILY #10 tablet 02/24/19 [Rx] Allergies/Adverse Reactions: Allergy/AdvReac Type Severity Reaction Status Date / Time acetaminophen Allergy Nausea Verified 10/24/18 13:54 [From Tylenol-Codeine #3] codeine Allergy Nausea Verified 10/24/18 13:54 [From Tylenol-Codeine #3] Amoxicillin AdvReac Itching Verified 10/24/18 13:54 clavulanic acid AdvReac Nausea Verified 10/24/18 13:54 [From Augmentin] clindamycin AdvReac NAUSEA, Verified 10/24/18 13:54 VOMITING doxycycline AdvReac NAUSEA, Verified 10/24/18 13:54 DIARRHEA guaifenesin [From Mucinex] AdvReac See Verified 10/24/18 13:54 Comments hydrocodone [From Vicodin] AdvReac Itching Verified 10/24/18 13:54 Iodinated Contrast Media AdvReac Rash Verified 10/24/18 13:54 metoclopramide [From Reglan] AdvReac Itching Verified 10/24/18 13:54 nitrofurantoin AdvReac NAUSEA, Verified 10/24/18 13:54 [From Macrobid] VOMITING prednisone AdvReac SHORTNESS Verified 10/24/18 13:54 OF BREATH Date of admission: 02/21/19 17:33 Primary care physician: Nelson Tolentino MD Consults: 02/21/19 17:15 Consult to Maintenance Manager [CONS] Routine Reason for SW Consult: possible needs at discharge, pt feels she needs more help in her home managing her household - Constitutional Vitals: Temp Pulse Resp BP Pulse Ox 36.5 C 66 18 116/54 94 02/24/19 11:30 02/24/19 11:30 02/24/19 11:30 02/24/19 11:30 02/24/19 12:20 Exam: GENERAL: Not in distress. Alert and Oriented HEENT: EOMI, PERRLA MOUTH: Moist oral mucosa NECK:No JVD, No lymph nodes. CHEST AND LUNGS: Few scattered wheexes. Transmitted sounds. HEART: S1 and S2 normal but located on the right side of the chest. No murmurs ABDOMEN: Soft, nontender, no organomegaly SKIN: Normal color, no rahses, no lesions EXTREMITIES: No deformity, no edema, no tenderness, no joint swelling or clubbi ng NEUROLOGICAL: Normal cognition, normal motor and sensory exam. - Patient Status Disposition: Home Health Service Condition: Fair Functional capacity at discharge: independent ambulation Overall status at discharge: patient is progressing back to baseline - Discharge Instructions Follow Up With: Nelson Tolentino MD [Primary Care Provider] -
--- NOTE | 2019-02-24 15:21 | Physician Discharge Referral ---
Home Health/Hosp Referral Info Transfer to: Home Health - Diagnosis (1) Acute respiratory failure with hypoxia Priority: Primary Status: Acute (2) Community acquired pneumonia Priority: Secondary Status: Acute (3) COPD exacerbation Priority: Secondary Status: Acute (4) Obesity Priority: Secondary Status: Acute (5) Elevated troponin Priority: Secondary Status: Acute (6) Lung nodule Priority: Secondary Status: Acute (7) HTN (hypertension) Priority: Secondary Status: Chronic (8) Tobacco abuse Priority: Secondary Status: Acute (9) DVT prophylaxis Priority: Secondary Status: Acute - Respiratory Orders Smoking Cessation: Smoking cessation has been advised. For more information, call the [place] [employer] Quit Line at [phone]-OSIK-NOW. - Transfer Medications Prescriptions: Acetylcysteine 10% 2 ml IH [id number] PRN #20 inhsol PRN Reason: Shortness Of Breath/Wheezing Ipratropium/Albuterol Neb [Duoneb] 3 ml IH [id number] PRN #30 inhsol PRN Reason: Shortness Of Breath/Wheezing Levofloxacin [Levaquin] 750 mg PO DAILY #10 tablet Home Medications: Furosemide [Lasix] 40 mg PO DAILY 08/18/15 [History] Magnesium Oxide [Magnesium] 400 mg PO DAILY 08/18/15 [History] Pantoprazole Sodium [Protonix] 40 mg PO DAILY 08/18/15 [History] Pnv with Ca,No.72/Iron,Carb/FA [ Plus Iron Tablet] 1 tab PO DAILY 08/18/15 [History] Sodium Chloride [Sodium Chloride Tab] 2 gm PO QAM 08/18/15 [History] Tizanidine HCl 4 mg PO Q8HR PRN 08/18/15 [History] Trazodone HCl 150 mg PO HS 08/18/15 [History] Meclizine HCl [Verticalm] 25 mg PO DAILY PRN 01/20/18 [History] Albuterol Sulfate [Proventil Inhaler] 2 puff IH Q4H PRN 06/24/18 [History] Azelastine 0.1% Nasal [place] [Astelin] 2 spray NS BID PRN 07/03/18 [History] Butalbital/Aspirin/Caffeine [Dvrdxeagiz-UEN-Vttbakny Cap] 2 cap PO DAILY PRN 07/03/18 [History] Cetirizine HCl [Zyrtec] 10 mg PO DAILY 07/03/18 [History] Diphenoxylate/Atropine [Lomotil 2.5 mg/0.025 mg] 3 tab PO QAM PRN 07/03/18 [History] Ibuprofen [Ibu] 800 mg PO BID PRN 07/03/18 [History] Promethazine [Phenergan] 25 mg PO DAILY PRN 07/03/18 [History] clonazePAM [Clonazepam] 1 mg PO TID 07/03/18 [History] Propranolol HCl [Innopran Xl] 80 mg PO DAILY 07/09/18 [History] Nicotine Patch [Nicoderm] 14 mg TD DAILY 02/21/19 [History] Potassium Chloride [Klor-Con 10] 10 meq PO DAILY 02/21/19 [History] Spironolactone 25 mg PO DAILY 02/21/19 [History] Acetylcysteine 10% 2 ml IH [id number] PRN #20 inhsol 02/24/19 [Rx] Ipratropium/Albuterol Neb [Duoneb] 3 ml IH [id number] PRN #30 inhsol 02/24/19 [Rx] Levofloxacin [Levaquin] 750 mg PO DAILY #10 tablet 02/24/19 [Rx] Allergies/Adverse Reactions: Allergy/AdvReac Type Severity Reaction Status Date / Time acetaminophen Allergy Nausea Verified 10/24/18 13:54 [From Tylenol-Codeine #3] codeine Allergy Nausea Verified 10/24/18 13:54 [From Tylenol-Codeine #3] Amoxicillin AdvReac Itching Verified 10/24/18 13:54 clavulanic acid AdvReac Nausea Verified 10/24/18 13:54 [From Augmentin] clindamycin AdvReac NAUSEA, Verified 10/24/18 13:54 VOMITING doxycycline AdvReac NAUSEA, Verified 10/24/18 13:54 DIARRHEA guaifenesin [From Mucinex] AdvReac See Verified 10/24/18 13:54 Comments hydrocodone [From Vicodin] AdvReac Itching Verified 10/24/18 13:54 Iodinated Contrast Media AdvReac Rash Verified 10/24/18 13:54 metoclopramide [From Reglan] AdvReac Itching Verified 10/24/18 13:54 nitrofurantoin AdvReac NAUSEA, Verified 10/24/18 13:54 [From Macrobid] VOMITING prednisone AdvReac SHORTNESS Verified 10/24/18 13:54 OF BREATH Certification: Further, I certify that my clinical findings support that this patient is homebound (i.e. absences from home require considerable and taxing effort and are for medical reasons or oriental orthodox services or infrequently or short duration when for other reasons) because: Homebound Reason: Severity of cardiac or pulmonary status limits activity tolerance Attestation: My signature below is to certify that this patient is under my care and that I, or nurse practitioner, or a physician's mobile sales assistant working with me, has a [id number] encounter with this patient.
[2019-02-24] MEDS: Acetaminophen 325 MG TABLET PO PRN (20:43)
[2019-02-25] MEDS: *HR* Heparin 5,000 UNIT/ML VIAL SQ SCH (03:25)
[2019-02-25] MEDS: Acetylcysteine 10% 2 ML INHSOL IH SCH ×2 (04:22→07:32)
[2019-02-25] MEDS: Ipratropium/Albuterol Neb 3 ML IH SCH ×2 (04:22→07:32)
[2019-02-25 06:55] VITALS: BP 125/66
[2019-02-25] MEDS: Propranolol LA (24 HR) 80 MG CAP.SA.24H PO SCH (08:01)
[2019-02-25] MEDS: clonazePAM 1 MG TABLET PO SCH (08:02)
[2019-02-25] MEDS: Furosemide 40 MG TABLET PO SCH (08:02)
[2019-02-25] MEDS: Acetaminophen 325 MG TABLET PO PRN (08:03)
[2019-02-25] MEDS: Loratadine 10 MG TABLET PO SCH (08:03)
[2019-02-25] MEDS: Diphenoxylate/Atropine 1 TAB TABLET PO SCH (08:04)
[2019-02-25] MEDS: Nicotine 14 MG PATCH.TD24 TD SCH (08:05)
[2019-02-25] MEDS: Spironolactone 25 MG TABLET PO SCH (08:05)
[2019-02-25] MEDS ORDERED: levoFLOXacin 750 MG/150 ML 750 MG/150 ML BAG IVPB SCH (09:00)
--- NOTE | 2019-02-25 09:57 | Internal Med Progress Note ---
Hospitalist Progress Note - Encounter Date of Encounter: 02/25/19 Time of Encounter: 07:30 - Subjective Interval History: Discharge order was placed yesterday but patient stated she did not want to go home mainly for the reason of fear of being alone last night since the time of seeing her Aide was past. This morning she has no complaints and states she is breathing much better. She denies chest pain, palpitations, fever and chills. - Exam Vitals: Temp Pulse Resp BP Pulse Ox 36.8 C 64 18 125/66 98 02/25/19 06:50 02/25/19 06:50 02/25/19 07:35 02/25/19 06:50 02/25/19 07:35 Exam: GENERAL: Not in distress. Alert and Oriented HEENT: EOMI, PERRLA MOUTH: Moist oral mucosa NECK:No JVD, No lymph nodes. CHEST AND LUNGS: Few scattered wheezes. HEART: S1 and S2 normal but located on the right side of the chest. No murmurs ABDOMEN: Soft, nontender, no organomegaly SKIN: Normal color, no rahses, no lesions EXTREMITIES: No deformity, no edema, no tenderness, no joint swelling or clubbing NEUROLOGICAL: Normal cognition, normal motor and sensory exam. - Assessment and Plan (1) Acute respiratory failure with hypoxia Current Visit: Yes Status: Acute Assessment and Plan: Patient remains on 2L of O2 via NC. She states that her breathing is better Less wheezing on physical exam Arrangements have been made for patient to receive oxygen as outpatient. (2) Community acquired pneumonia Current Visit: Yes Status: Acute Assessment and Plan: No fever or chills overnight No growth on blood cultures so far. Discharge on oral antibiotics. (3) COPD exacerbation Current Visit: Yes Status: Acute Assessment and Plan: Less wheezing compared to yesterday. We will be discharged on breathing treatments. (4) Obesity Current Visit: Yes Status: Acute Assessment and Plan: Patient counseled on weight loss options. (5) Elevated troponin Current Visit: Yes Status: Acute Assessment and Plan: Troponin 0.05<0.04 Patient denies CP and states her OSB is improving. Troponin elevation likely demand related. Will continue to monitor (6) Lung nodule Current Visit: Yes Status: Acute Assessment and Plan: Patient has a lung nodule seen on CT scan. It os peripherally located. This nodule compared to her CT from January does not seem to have grown any larger. Will draw the attention of her oncologist Follow-up as outpatient (7) HTN (hypertension) Current Visit: No Status: Chronic Assessment and Plan: Resume Lasix and propranolol (8) DVT prophylaxis Current Visit: No Status: Acute Assessment and Plan: Subcutaneous heparin - Time Spent with Patient Total time spent is greater than 50% in coordination of care (as documented) at patient's floor/unit and/or counseling patient: Internal Medicine: Result - Labs CBC & Chem 7: 02/24/19 03:48 02/24/19 03:48 Consult Discharge Plan - Plan Instructions: Levofloxacin (By mouth), Ipratropium/Albuterol (By breathing), Acetylcysteine (By breathing), Acute Respiratory Distress Syndrome (DC), Chronic Obstructive Pulmonary Disease (DC), Pneumonia (DC) Additional Instructions: We electronically sent your prescription to [facility] pharmacy. We set you up with [facility]. Your prescription is for 2L continuously. They will meet you at your home to deliver your oxygen supplies and educate you on these. You will then give back to them the portable oxygen tank we gave you from the hospital after you have your own. Their phone # is on the side of the tanks, or they will give you a card, if you have any questions. Referrals: Nelson Tolentino MD [Primary Care Provider] - 03/05/19 11:30 am Jerry Cole MD [Partnered Physician] - 03/10/19 3:00 pm Prescriptions: Acetylcysteine 10% 2 ml IH [id number] PRN #20 inhsol PRN Reason: Shortness Of Breath/Wheezing Ipratropium/Albuterol Neb [Duoneb] 3 ml IH [id number] PRN #30 inhsol PRN Reason: Shortness Of Breath/Wheezing Levofloxacin [Levaquin] 750 mg PO DAILY #10 tablet (2) Community acquired pneumonia Qualifiers: Laterality: right Lung location: lower lobe of lung Qualified Code(s): J18.1 - Lobar pneumonia, unspecified organism (4) Obesity Qualifiers: Obesity type: due to excess calories Obesity classification: adult class 1 (BMI 30 - 34.9) Serious obesity comorbidity presence: without serious comorbidity Body mass index: BMI 30.0-30.9 Qualified Code(s): E66.09 - Other obesity due to excess calories; Z68.30 - Body mass index (BMI) 30.0-30.9, adult (7) HTN (hypertension) Qualifiers: Hypertension type: essential hypertension Qualified Code(s): I10 - Essential (primary) hypertension
[2019-02-25] MEDS ORDERED: *HR* Heparin 5,000 UNIT/ML VIAL SQ SCH (14:00)
== END 2019-02-25 11:03 | disposition home health service (06) | DRG 139 ==
LOC: 2NENU 12:56 → EMEROOARM 12:56 → SUATTDRO 15:42 → 2NENU 16:22
PROVIDERS: ADMIT Internal Medicine; ATTEND Internal Medicine

== ENCOUNTER 2021-11-27 16:22 | Inpatient (IN) ==
[2021-11-27] MEDS ORDERED: Naloxone 0.4 MG/ML INJ IVP PRN (19:37)
[2021-11-27] MEDS ORDERED: Ondansetron 4 MG/2 ML VIAL IVP PRN (19:37)
[2021-11-27] MEDS ORDERED: Albuterol 2.5 MG/3 ML NEBULIZER IH PRN (21:43)
[2021-11-27] MEDS ORDERED: *HR* Heparin 5,000 UNIT/ML VIAL IVP ONE (21:50)
[2021-11-27] MEDS ORDERED: *HR* Heparin 5,000 UNIT/ML VIAL IVP PRN ×2 (21:50)
[2021-11-27] MEDS ORDERED: Azithromycin 500 MG in D5% in Water 250 ML IVPB SCH (22:00)
[2021-11-27] MEDS ORDERED: Ipratropium/Albuterol Neb 3 ML IH SCH (22:00)
[2021-11-27] MEDS ORDERED: Ipratropium Neb 0.5 MG NEBULIZER IH PRN (22:04)
[2021-11-27] MEDS ORDERED: Acetaminophen/Butalbital/CaffeineTABLET PO PRN (22:29)
[2021-11-27] MEDS ORDERED: traZODone 50 MG TABLET PO SCH (22:30)
[2021-11-27] MEDS: Melatonin 3 MG TABLET PO PRN (23:05)
[2021-11-28] MEDS ORDERED: Perflutren Lipid Microsphere 1.3 ML in 0.9 % Sodium Chloride 8.7 ML IVP PRN (00:17)
[2021-11-28] MEDS ORDERED: 0.9 % Sodium Chloride 1,000 ML IVC ONE ×2 (00:26→01:52)
[2021-11-28 02:10] LABS: Basophils # 0.1 K/mcL (0.0-0.2); Basophils % 0.6 %; Eosinophils # 0.2 K/mcL (0.0-0.6); Eosinophils % 1.7 %; Hematocrit 33.7 % (35.3-44.9); Hemoglobin 10.6 g/dL (11.5-15.4); Immature Granulocytes % 0.5 % (0-4); Lymphocytes # 1.3 K/mcL (0.6-4.6); Lymphocytes % 14.7 %; Mean Corpuscular HGB Conc 31.5 g/dL (31.6-35.5); Mean Corpuscular Hemoglobin 28.7 pg (28.0-33.3); Mean Corpuscular Volume 91.3 fL (83.0-100.0); Mean Platelet Volume 11.3 fL (9.4-12.4); Monocytes % 11.6 %; Neutrophils # 6.3 K/mcL (1.6-8.9); Platelet Count 160 K/mcL (140-400); Red Blood Count 3.69 M/mcL (3.82-4.97); Red Cell Distribution Width 13.7 % (11.5-14.5); Segmented Neutrophils % 70.9 %; White Blood Count 8.8 K/mcL (4.3-11.1)
[2021-11-28 02:24] LABS: Alanine Aminotransferase 8 Units/L (7-52); Albumin 3.4 g/dL (3.5-5.7); Albumin/Globulin Ratio 1.4 (1.1-2.2); Alkaline Phosphatase 78 Units/L (34-104); Aspartate Amino Transferase 19 Units/L (13-39); BUN/Creatinine Ratio 14 (6-26); Bilirubin,Total 0.2 mg/dL (0.3-1.0); Blood Urea Nitrogen 15 mg/dL (8-23); Calcium 7.9 mg/dL (8.6-10.3); Carbon Dioxide 29 mEq/L (23-29); Chloride 98 mEq/L (98-107); Globulin 2.4 g/dL (2.4-3.5); Glucose 105 mg/dL (70-105); Magnesium 1.5 mg/dL (1.6-2.6); Osmolality,Calculated 277 (280-300); Phosphorous 3.4 mg/dL (2.7-4.5); Potassium 3.3 mEq/L (3.5-5.1); Sodium 133 mEq/L (136-145); Total Protein 5.8 g/dL (6.4-8.9); eGFR For African Americans > 60 (> 60); eGFR For Non-African Americans 53 (> 60)
[2021-11-28 02:29] LABS: Heparin anti-factor XA UFH 0.48 IU/mL (0.30-0.70); INR 1.2; Prothrombin Time 13.5 Seconds (9.4-12.1)
[2021-11-28] MEDS: Heparin 25,000UNIT/250ML 1/2NS 25,000 UNIT/250 ML IV.SOLN IVC SCH (02:45)
[2021-11-28] MEDS ORDERED: Ondansetron ODT 4 MG TAB.RAPDIS PO PRN (08:19)
[2021-11-28] MEDS ORDERED: Ringers Solution, Lactated 500 ML IVC SCH (08:30)
[2021-11-28] MEDS: levoFLOXacin 750 MG TABLET PO SCH (08:45)
[2021-11-28] MEDS: Loratadine 10 MG TABLET PO SCH (08:45)
[2021-11-28] MEDS ORDERED: clonazePAM 1 MG TABLET PO SCH (09:00)
[2021-11-28 09:12] LABS: Bilirubin,Urine Negative (Negative); Blood,Urine Negative (Negative); Clarity,Urine Clear (Clear); Color,Urine Colorless (Yellow); Glucose,Urine (UA) Normal (Normal); Ketones,Urine 10 mg/dL (Negative); Leukocyte Esterase,Urine Negative (Negative); Nitrite,Urine Negative (Negative); Protein,Urine Trace mg/dL (Neg-Trace); Urobilinogen,Urine Normal (Normal)
[2021-11-28 09:57] LABS: Adenovirus Not Detected (Not Detect); Bordetella Pertussis Not Detected (Not Detect); Chlamydophila pneumoniae Not Detected (Not Detect); Coronavirus 229E Not Detected (Not Detect); Coronavirus HKU1 Not Detected (Not Detect); Coronavirus NL63 Not Detected (Not Detect); Coronavirus OC43 Not Detected (Not Detect); Human Metapneumovirus Not Detected (Not Detect); Human Rhinovirus/Enterovirus Not Detected (Not Detect); Influenza A Subtype 2009 H1 Not Detected (Not Detect); Influenza B Not Detected (Not Detect); Mycoplasma pneumoniae Not Detected (Not Detect); Parainfluenza Virus 1 Not Detected (Not Detect); Parainfluenza Virus 2 Not Detected (Not Detect); Parainfluenza Virus 3 DETECTED (Not Detect); Parainfluenza Virus 4 Not Detected (Not Detect); Respiratory Syncytial Virus Not Detected (Not Detect); SARS-CoV-2 Not Detected (Not Detect)
[2021-11-28] MEDS: Acetaminophen 325 MG TABLET PO PRN ×2 (11:59→19:19)
[2021-11-28] MEDS ORDERED: Fluticasone Propionate Nasal 50 MCG/SPRAY BOTTLE NS PRN (14:37)
[2021-11-28] MEDS: Diphenoxylate/Atropine 1 TAB TABLET PO PRN (15:48)
[2021-11-28] MEDS ORDERED: Furosemide 40 MG/4 ML VIAL IVP ONE (17:08)
[2021-11-28] MEDS ORDERED: traZODone 50 MG TABLET PO ONE ×2 (21:31→22:15)
[2021-11-28] MEDS: tiZANidine 4 MG TABLET PO PRN (22:13)
[2021-11-29] MEDS: Acetaminophen 325 MG TABLET PO PRN ×4 (01:54→21:36)
[2021-11-29 02:20] LABS: Basophils % 0.6 %; Eosinophils # 0.1 K/mcL (0.0-0.6); Eosinophils % 1.1 %; Hematocrit 36.7 % (35.3-44.9); Hemoglobin 11.2 g/dL (11.5-15.4); Immature Granulocytes % 0.4 % (0-4); Lymphocytes # 1.3 K/mcL (0.6-4.6); Lymphocytes % 23.2 %; Mean Corpuscular HGB Conc 30.5 g/dL (31.6-35.5); Mean Corpuscular Hemoglobin 28.8 pg (28.0-33.3); Mean Corpuscular Volume 94.3 fL (83.0-100.0); Mean Platelet Volume 11.8 fL (9.4-12.4); Monocytes # 0.9 K/mcL (0.0-1.3); Monocytes % 16.9 %; Neutrophils # 3.1 K/mcL (1.6-8.9); Platelet Count 170 K/mcL (140-400); Red Blood Count 3.89 M/mcL (3.82-4.97); Red Cell Distribution Width 13.6 % (11.5-14.5); Segmented Neutrophils % 57.8 %; White Blood Count 5.4 K/mcL (4.3-11.1)
[2021-11-29 02:30] LABS: Chol/HDL Ratio 6.4 (0-4.9)
[2021-11-29] MEDS: Heparin 25,000UNIT/250ML 1/2NS 25,000 UNIT/250 ML IV.SOLN IVC SCH (07:00)
[2021-11-29] MEDS: Loratadine 10 MG TABLET PO SCH (09:12)
[2021-11-29] MEDS: levoFLOXacin 750 MG TABLET PO SCH (09:13)
[2021-11-29] MEDS: Magnesium Oxide 400 MG TABLET PO SCH (09:13)
[2021-11-29] MEDS: Diphenoxylate/Atropine 1 TAB TABLET PO PRN (12:16)
[2021-11-29] MEDS: clonazePAM 1 MG TABLET PO SCH ×2 (12:30→21:37)
[2021-11-29] MEDS: *HR* Heparin 5,000 UNIT/ML VIAL SQ SCH (18:29)
[2021-11-29] MEDS: Melatonin 3 MG TABLET PO PRN (23:12)
[2021-11-29] MEDS: tiZANidine 4 MG TABLET PO PRN (23:12)
[2021-11-30] MEDS: *HR* Heparin 5,000 UNIT/ML VIAL SQ SCH ×2 (05:37→16:23)
[2021-11-30] MEDS: *HR* OxyCODONE/APAP 5/325 TABLET PO PRN ×2 (05:42→18:27)
[2021-11-30 09:02] LABS: BUN/Creatinine Ratio 12 (6-26); Blood Urea Nitrogen 8 mg/dL (8-23); Calcium 8.9 mg/dL (8.6-10.3); Carbon Dioxide 34 mEq/L (23-29); Chloride 97 mEq/L (98-107); Glucose 93 mg/dL (70-105); Magnesium 1.7 mg/dL (1.6-2.6); Osmolality,Calculated 280 (280-300); Phosphorous 2.8 mg/dL (2.7-4.5); Potassium 3.4 mEq/L (3.5-5.1); Sodium 136 mEq/L (136-145); eGFR For African Americans > 60 (> 60); eGFR For Non-African Americans > 60 (> 60)
[2021-11-30] MEDS: Diphenoxylate/Atropine 1 TAB TABLET PO PRN (09:39)
[2021-11-30] MEDS: clonazePAM 1 MG TABLET PO SCH ×3 (09:40→21:18)
[2021-11-30] MEDS: levoFLOXacin 750 MG TABLET PO SCH (09:40)
[2021-11-30] MEDS: Acetaminophen 325 MG TABLET PO PRN (09:40)
[2021-11-30] MEDS: Magnesium Oxide 400 MG TABLET PO SCH (09:41)
[2021-11-30] MEDS: Loratadine 10 MG TABLET PO SCH (09:41)
[2021-11-30] MEDS: Propranolol LA (24 HR) 80 MG CAP.SA.24H PO SCH (09:42)
[2021-11-30] MEDS ORDERED: Ipratropium/Albuterol Neb 3 ML IH SCH (10:00)
[2021-11-30] MEDS: Ipratropium Neb 0.5 MG NEBULIZER IH SCH ×3 (11:10→22:38)
[2021-11-30] MEDS: Melatonin 3 MG TABLET PO PRN (21:18)
[2021-11-30] MEDS: tiZANidine 4 MG TABLET PO PRN ×2 (21:22→23:35)
[2021-11-30] MEDS: traZODone 50 MG TABLET PO SCH (23:35)
[2021-12-01] MEDS: Ipratropium Neb 0.5 MG NEBULIZER IH SCH ×4 (04:19→22:37)
[2021-12-01] MEDS: *HR* Heparin 5,000 UNIT/ML VIAL SQ SCH ×2 (05:48→19:13)
[2021-12-01 06:57] LABS: Hemoglobin 10.9 g/dL (11.5-15.4); Mean Platelet Volume 11.9 fL (9.4-12.4); Red Cell Distribution Width 13.2 % (11.5-14.5)
[2021-12-01 06:59] LABS: Hematocrit 34.6 % (35.3-44.9); Immature Platelets 8.5 % (1.1-6.1); Mean Corpuscular HGB Conc 31.5 g/dL (31.6-35.5); Monocytes # 0.5 K/mcL (0.0-1.3); Platelet Count 149 K/mcL (140-400); Red Blood Count 3.76 M/mcL (3.82-4.97); White Blood Count 4.5 K/mcL (4.3-11.1)
[2021-12-01 07:33] LABS: BUN/Creatinine Ratio 18 (6-26); Blood Urea Nitrogen 11 mg/dL (8-23); Calcium 8.9 mg/dL (8.6-10.3); Carbon Dioxide 29 mEq/L (23-29); Chloride 98 mEq/L (98-107); Glucose 100 mg/dL (70-105); Magnesium 1.6 mg/dL (1.6-2.6); Osmolality,Calculated 279 (280-300); Potassium 3.7 mEq/L (3.5-5.1); Sodium 135 mEq/L (136-145); eGFR For African Americans > 60 (> 60); eGFR For Non-African Americans > 60 (> 60)
[2021-12-01 08:18] LABS: Lymphocytes # 2.3 K/mcL (0.6-4.6); Neutrophils # 1.8 K/mcL (1.6-8.9)
[2021-12-01 08:19] LABS: Platelet Estimate Slight Decrease (Normal)
[2021-12-01] MEDS: Propranolol LA (24 HR) 80 MG CAP.SA.24H PO SCH (08:40)
[2021-12-01] MEDS: clonazePAM 1 MG TABLET PO SCH ×3 (08:41→20:51)
[2021-12-01] MEDS: Loratadine 10 MG TABLET PO SCH (08:41)
[2021-12-01] MEDS: Magnesium Oxide 400 MG TABLET PO SCH (08:41)
[2021-12-01] MEDS: levoFLOXacin 750 MG TABLET PO SCH (08:41)
[2021-12-01] MEDS ORDERED: Fluconazole 150 MG TABLET PO ONE (13:46)
[2021-12-01] MEDS: Acetaminophen 325 MG TABLET PO PRN ×2 (14:16→20:57)
[2021-12-01] MEDS: *HR* OxyCODONE/APAP 5/325 TABLET PO PRN (19:19)
[2021-12-01] MEDS: traZODone 50 MG TABLET PO SCH (20:51)
[2021-12-01] MEDS: tiZANidine 4 MG TABLET PO PRN (20:57)
[2021-12-01] MEDS: Melatonin 3 MG TABLET PO PRN (20:57)
[2021-12-01] MEDS ORDERED: polyethylene glycoL 3350 17 GM POWD.PACK PO PRN (22:50)
[2021-12-02] MEDS: Ipratropium Neb 0.5 MG NEBULIZER IH SCH ×3 (04:29→15:26)
[2021-12-02] MEDS: *HR* Heparin 5,000 UNIT/ML VIAL SQ SCH (05:56)
[2021-12-02 08:25] VITALS: BP 125/59; PULSE 60; TEMP 97.8
[2021-12-02] MEDS: *HR* OxyCODONE/APAP 5/325 TABLET PO PRN (09:18)
[2021-12-02] MEDS: Loratadine 10 MG TABLET PO SCH (09:19)
[2021-12-02] MEDS: clonazePAM 1 MG TABLET PO SCH ×2 (09:19→14:05)
[2021-12-02] MEDS: levoFLOXacin 750 MG TABLET PO SCH (09:19)
[2021-12-02] MEDS: Magnesium Oxide 400 MG TABLET PO SCH (09:19)
[2021-12-02] MEDS: Propranolol LA (24 HR) 80 MG CAP.SA.24H PO SCH (09:24)
[2021-12-02 09:55] VITALS: O2SAT 95
== END 2021-12-02 15:30 | disposition home health service (06) | DRG 133 ==
LOC: 3NENU → SUATTDRO 18:26
PROVIDERS: ADMIT Hospitalist; ATTEND Family Medicine